=== PATIENT | male | born 1950 | race Caucasian/White ===

== ENCOUNTER 2016-08-24 09:00 | Inpatient (IN) | payer OTHER ==
[~2016-08-24] VITALS: Ht 180.3 cm; Wt 75.3 kg
[2016-08-24] VITALS (18 sets, daily range): BP systolic 85–112; BP diastolic 44–56; PULSE 54–70; RESP 10–25; Ht 180.3 cm; Wt 75.3 kg
[2016-08-24] MEDS ORDERED: CEFAZOLIN 2 GM/50 ML (PMX) 50 ML IVPB ONE (10:00)
[2016-08-24] MEDS ORDERED: SOD CHLORIDE 0.9% 1,000 ML IV SCH (10:00)
[2016-08-24] MEDS ORDERED: RANI150T9 PO (10:20)
[2016-08-24] MEDS ORDERED: HYDR-906 PO (10:20)
[2016-08-24] MEDS ORDERED: GABA-526 PO (10:20)
[2016-08-24] MEDS ORDERED: MAG355OR14 PO (10:20)
[2016-08-24] MEDS ORDERED: METO5TAB58 PO (10:20)
[2016-08-24] MEDS ORDERED: MIRT15TA5 PO (10:20)
[2016-08-24] MEDS ORDERED: BUPIVACAINE 0.25% (MPF) 30 ML INJ ONE (11:49)
[2016-08-24] MEDS ORDERED: PROPOFOL 20 ML ONE (11:59)
[2016-08-24] MEDS ORDERED: ROCURONIUM 50 MG INJ ONE ×2 (11:59→13:08)
[2016-08-24] MEDS ORDERED: ROPIVACAINE 0.5 % 30 ML VIAL ONE (12:00)
[2016-08-24] MEDS ORDERED: METOCLOPRAMIDE 10 MG INJ ONE (12:00)
[2016-08-24] MEDS ORDERED: MIDAZOLAM 1 MG/ML 2 ML INJ ONE (12:00)
[2016-08-24] MEDS ORDERED: HYDROmorphONE 2 MG/ML SYG ONE (12:02)
[2016-08-24] MEDS ORDERED: CEFAZOLIN 1 GM INJ ONE (12:09)
[2016-08-24] MEDS ORDERED: METOCLOPRAMIDE 10 MG INJ IV PRN (12:30)
[2016-08-24] MEDS ORDERED: DIPHENHYDRAMINE 50 MG INJ IV PRN (12:30)
[2016-08-24] MEDS ORDERED: HYDROmorphONE (0.2 MG/ML) 10ML SYG IV PRN ×2 (12:30)
[2016-08-24] MEDS ORDERED: ONDANSETRON 4 MG INJ IV PRN (12:30)
[2016-08-24] MEDS ORDERED: MEPERIDINE 25 MG INJ IV PRN (12:30)
[2016-08-24] MEDS ORDERED: OXYCODONE/ACETAMINOPHEN (5/325) TAB PO PRN ×2 (12:30)
[2016-08-24] MEDS ORDERED: GLYCOPYRROLATE 0.4 MG INJ ONE (12:32)
[2016-08-24] MEDS ORDERED: NEOSTIGMINE 3 MG/3 ML SYRINGE ONE (12:32)
[2016-08-24] MEDS ORDERED: KETOROLAC 30 MG INJ ONE (12:32)
--- NOTE | 2016-08-24 13:46 | OPR ---
Date/Time of Note Date/Time of Note DATE: 08/24/16 TIME: 13:45 Operative Report Procedure Date: Aug 24, 2016 Preoperative Diagnosis symptomatic gallstones Postoperative Diagnosis same Operation Performed lap converted to open gabi Surgeon: Allison MARIE Specimens gallbladder Allison MARIE Aug 24, 2016 13:46
--- NOTE | 2016-08-24 14:15 | OPR ---
DATE OF OPERATION: 08/24/2016 INDICATION: This is a 65-year-old male with symptomatic gallstones. He requests surgical excision. The risks, alternatives, benefits, and personnel were discussed with the patient. Patient expressed understanding and consented to the operation. PREOPERATIVE DIAGNOSIS: Symptomatic gallstones. POSTOPERATIVE DIAGNOSIS: Symptomatic gallstones. OPERATION PERFORMED: 1. Laparoscopic cholecystectomy converted to open cholecystectomy 2. placement intraabdominal #19 akin drain SURGEON: Rohini Tobar MD SPECIMENS: Gallbladder. COMPLICATIONS: None. ANESTHESIA: General. PROCEDURE: The patient was taken to the OR and prepped and draped in the usual sterile fashion. A surgical timeout was performed. IV antibiotics were given. An infraumbilical incision was made with a 15 blade. Dissection cautery was carried down to the fascia which was divided with curved Bourgeois scissors. An 0 Vicryl U-stitch was placed into the fascia. Balloon Ena trocar was introduced. Pneumoperitoneum was established. Midepigastric 12-mm optical trocar and right upper quadrant and right flank 5-mm optical trocars were placed under direct visualization. Upon initial inspection, the gallbladder appeared to be socked into the liver and was deeply intrahepatic. Dissection was first carried out from a dome-down approach. There was some minimal oozing. It was difficult to get around the dome. The cystic duct was identified. The critical view was established. The cystic duct was divided with multiple fires of the 35 [place] vascular load stapler. The gallbladder was placed into an EndoCatch bag. The cystic artery also was clipped and divided. There was persistent bleeding in one single area which was not amenable to clip construction and maintenance inspector. The decision was made to convert to an open procedure. A subcostal incision was made in the right side with a 10 blade. Dissection cautery was carried down through the muscle layers. Upon initial retraction there was an area of oozing and bleeding, which was controlled with a figure of eight 3-0 Vicryl suture. There was good hemostasis. A #19 Akin drain was placed for further drainage in this area. The drain was secured in place with 2-0 nylon. The gallbladder was retrieved and was opened and evaluated. The cystic duct was identified. No other structures were identified. The gallbladder bed was thoroughly cauterized and Surgicel was placed for additional hemostatic agent. There was no further evidence of bleeding and there was good hemostasis. The fascia was closed with an 0 looped PDS from medial to lateral and lateral to medial. This was tied down. The skin was closed using skin ching. Local anesthesia was injected. The infraumbilical incision was closed after tying down the 0 Vicryl stitch. The skin was closed using skin ching. Local anesthesia was injected. Dry dressings were applied. Dictated By: ROHINI DAVIS/MILLY Conf#: [id number] DID#: [id number] MTDD
[2016-08-24] MEDS: CEFAZOLIN 2 GM/50 ML (PMX) 50 ML IVPB SCH ×2 (14:20→22:21)
[2016-08-24] MEDS: HYDROmorphONE (0.2 MG/ML) 10ML SYG IV PRN ×4 (14:24→14:53)
[2016-08-24 15:04] LABS: ADD SCAN DIFF NO
[2016-08-24 15:07] LABS: BASOPHILS % 0.2 % (0.0-2.0); EOSINOPHILS # 0.1 10^3/ul (0.0-0.5); EOSINOPHILS % 0.2 % (0.0-7.0); HEMATOCRIT 38.2 % (42.0-52.0); HEMOGLOBIN 12.5 g/dl (14.0-18.0); LYMPHOCYTES # 1.7 10^3/ul (0.8-2.9); MEAN CORPUSCULAR HEMOGLOBIN 30.8 pg (29.0-33.0); MEAN CORPUSCULAR HGB CONC 32.7 g/dl (32.0-37.0); MEAN CORPUSCULAR VOLUME 94.1 fl (82.0-101.0); MEAN PLATELET VOLUME 9.4 fl (7.4-10.4); MONOCYTE # 0.6 10^3/ul (0.3-0.9); MONOCYTES % 2.7 % (0.0-11.0); NEUTROPHIL # 18.7 10^3/ul (1.6-7.5); NEUTROPHILS % 88.2 % (39.0-77.0); PLATELET COUNT 193 10^3/UL (140-415); RED BLOOD COUNT 4.06 10^6/ul (4.70-6.10); RED CELL DISTRIBUTION WIDTH 13.7 % (11.5-14.5); WHITE BLOOD COUNT 21.2 10^3/ul (4.8-10.8)
[2016-08-24 15:29] LABS: ALBUMIN 3.7 g/dl (3.3-4.9); ALBUMIN/GLOBULIN RATIO 1.32; BILIRUBIN,INDIRECT 0.4 mg/dl (0-1.1); BILIRUBIN,TOTAL 0.4 mg/dl (0.2-1.3); TOTAL PROTEIN 6.5 g/dl (6.1-8.1)
[2016-08-24 15:45] LABS: CALCIUM 8.1 mg/dl (8.4-10.2); CREATININE 0.78 mg/dl (0.61-1.24); POTASSIUM 4.3 mmol/L (3.5-5.1)
[2016-08-24] MEDS: morphine 2 MG INJ IV PRN ×3 (16:43→22:14)
[2016-08-24] MEDS: SOD CHLORIDE 0.9% 1,000 ML IV SCH ×2 (17:26→23:58)
--- NOTE | 2016-08-24 17:53 | HP ---
DATE OF ADMISSION: 08/24/2016 HISTORY OF PRESENT ILLNESS: The patient is a 65-year-old gentleman with chronic back pain status po st surgery. The patient also has a history of symptomatic gallstones and was seen by Dr. Tobar. The patient was taken to OR and underwent laparoscopic cholecystectomy. The patient does have significa nt postoperative pain and is being admitted for further evaluation and management. Prior to surgery , he used to take [place] for his back pain along with Neurontin. The patient did not have any recent episode of cholecystitis, no reported chest pain or shortness of breath. No reported leg edema. N o history of hypertension, diabetes, or congestive heart failure. No history of CVA in the past. REVIEW OF SYSTEMS: The rest of the review of systems was unremarkable. PAST SURGICAL HISTORY: The patient is status post low back surgery, details not available. The pat zoe has history of burst fracture of lumbar vertebra in 2014. SOCIAL HISTORY: No smoking, no alcohol. FAMILY HISTORY: Noncontributory. ALLERGIES: NONE. PHYSICAL EXAMINATION: GENERAL: Revealed the patient to be conscious, awake, alert, fairly oriented, breathing comfortably on room air. VITAL SIGNS: Blood pressure 96/50, pulse 64, respirations 18, O2 saturation 95% on room air. The p atient is afebrile with temperature of 98.1. HEENT: Atraumatic, normocephalic. Conjunctivae and lids normal. Oropharynx clear. NECK: Supple. No mass, no thyromegaly. CHEST: Fairly clear. CARDIOVASCULAR: S1, S2 normal. No murmur. ABDOMEN: The patient is status post laparoscopic cholecystectomy. EXTREMITIES: No leg edema. NEUROLOGIC: The patient is awake, alert, follows simple commands, moves all extremities with no lazara ss focal deficits. LABORATORY: Postoperatively, WBC 21.2, hemoglobin 12.5. Sodium 142, potassium 4.3, BUN 14, creatin ine 0.7, glucose 155. AST 107, ALT 106, alkaline phosphatase 65. IMPRESSION: 1. Symptomatic gallstones, status post open cholecystectomy. 2. Chronic lower back pain with a history of lower back injury with lumbar burst fracture status po st surgery, details not available. PLAN: The patient admitted on medical floor. The patient will be started on clear liquid diet, whi ch will be advanced as tolerated. The patient will be started on [place] and IV morphine for pain con trol. We will also add Tylenol. We will use SCD for DVT prophylaxis, and the patient already was t aking Zantac which will be continued. The patient will also be continued on Neurontin, Reglan, and Remeron as at home. We will do followup labs in the morning. Further recommendations will depend o n patient's hospital course and recommendations from surgery. We will continue to follow from a [facility] standpoint. Dictated By: GAGANDEEP BYRNE/MILLY Conf#: [id number] DID#: [id number]
[2016-08-24] MEDS: METOCLOPRAMIDE 5 MG TAB PO SCH (18:52)
[2016-08-24] MEDS: GABAPENTIN 300 MG CAP PO SCH (20:13)
[2016-08-24] MEDS: HYDROCODONE/APAP (5/325) TAB PO PRN (20:14)
[2016-08-24] MEDS: MIRTAZAPINE 15 MG TAB PO SCH (20:14)
[2016-08-24] MEDS: RANITIDINE 150 MG TAB PO SCH (20:15)
[2016-08-25] MEDS: morphine 2 MG INJ IV PRN ×3 (02:43→11:55)
[2016-08-25] MEDS: HYDROCODONE/APAP (5/325) TAB PO PRN (04:21)
[2016-08-25] MEDS: SOD CHLORIDE 0.9% 1,000 ML IV SCH ×3 (04:30→16:24)
[2016-08-25] MEDS: CEFAZOLIN 2 GM/50 ML (PMX) 50 ML IVPB SCH (05:30)
[2016-08-25 06:06] LABS: ADD SCAN DIFF NO
[2016-08-25 06:29] LABS: BASOPHILS % 0.1 % (0.0-2.0); HEMATOCRIT 35.9 % (42.0-52.0); HEMOGLOBIN 11.9 g/dl (14.0-18.0); LYMPHOCYTES # 0.9 10^3/ul (0.8-2.9); LYMPHOCYTES % 5.9 % (15.0-51.0); MEAN CORPUSCULAR HEMOGLOBIN 30.9 pg (29.0-33.0); MEAN CORPUSCULAR HGB CONC 33.1 g/dl (32.0-37.0); MEAN CORPUSCULAR VOLUME 93.2 fl (82.0-101.0); MEAN PLATELET VOLUME 9.9 fl (7.4-10.4); MONOCYTE # 0.7 10^3/ul (0.3-0.9); MONOCYTES % 4.6 % (0.0-11.0); PLATELET COUNT 187 10^3/UL (140-415); RED BLOOD COUNT 3.85 10^6/ul (4.70-6.10); RED CELL DISTRIBUTION WIDTH 13.7 % (11.5-14.5); WHITE BLOOD COUNT 14.6 10^3/ul (4.8-10.8)
[2016-08-25 07:24] LABS: ALBUMIN 3.5 g/dl (3.3-4.9); ALBUMIN/GLOBULIN RATIO 1.2; BILIRUBIN,INDIRECT 0.8 mg/dl (0-1.1); BILIRUBIN,TOTAL 0.8 mg/dl (0.2-1.3); CALCIUM 8.7 mg/dl (8.4-10.2); CREATININE 0.7 mg/dl (0.61-1.24); POTASSIUM 4.1 mmol/L (3.5-5.1); TOTAL PROTEIN 6.4 g/dl (6.1-8.1)
[2016-08-25 08:01] VITALS: BP 108/59; RESP 17
[2016-08-25] MEDS: RANITIDINE 150 MG TAB PO SCH ×2 (08:43→21:35)
[2016-08-25] MEDS: METOCLOPRAMIDE 5 MG TAB PO SCH ×3 (08:43→18:18)
[2016-08-25] MEDS: GABAPENTIN 300 MG CAP PO SCH ×4 (08:43→22:34)
--- NOTE | 2016-08-25 09:58 | PN ---
Date/Time of Note Date/Time of Note DATE: 08/25/16 TIME: 09:57 Assessment/Plan VTE Prophylaxis VTE Prophylaxis Intervention: SCD's, other Lines/Catheters IV Catheter Type (from Nrsg): Saline Lock Assessment/Plan Chief Complaint/Hosp Course s/p lap gabi converted to open due to intrahepatic gallbladder pain control Problems: Subjective 24 Hr Interval Summary Free Text/Dictation doing well no issues except pain control Exam/Review of Systems Vital Signs Vitals Vital Signs Date Time Temp Pulse Resp B/P Pulse Ox O2 Delivery O2 Flow Rate FiO2 08/25/16 08:01 98.9 76 17 108/59 88 08/24/16 15:40 Room Air Intake and Output 08/24/16 08/24/16 08/25/16 15:00 23:00 07:00 Intake Total 3300 ml 50 ml 1820 ml Output Total 110 ml 60 ml 1110 ml Balance 3190 ml -10 ml 710 ml Exam drain in place, c/d/i Results Result Diagram: 08/25/16 0533 08/25/16 0533 Results 24 hrs Laboratory Tests Test 08/24/16 14:58 08/25/16 05:33 08/25/16 06:56 White Blood Count 21.2 H 14.6 #H Red Blood Count 4.06 L 3.85 L Hemoglobin 12.5 L 11.9 L Hematocrit 38.2 L 35.9 L Mean Corpuscular Volume 94.1 93.2 Mean Corpuscular Hemoglobin 30.8 30.9 Mean Corpuscular Hemoglobin Concent 32.7 33.1 Red Cell Distribution Width 13.7 13.7 Platelet Count 193 187 Mean Platelet Volume 9.4 9.9 Neutrophils % 88.2 H 89.0 H Lymphocytes % 8.0 L 5.9 L Monocytes % 2.7 4.6 Eosinophils % 0.2 0.0 Basophils % 0.2 0.1 Nucleated Red Blood Cells % 0.0 0.0 Neutrophils # 18.7 H 13.0 H Lymphocytes # 1.7 0.9 Monocytes # 0.6 0.7 Eosinophils # 0.1 0.0 Basophils # 0.0 0.0 Nucleated Red Blood Cells # 0.0 0.0 Sodium Level 142 139 Potassium Level 4.3 4.1 Chloride Level 109 103 Carbon Dioxide Level 25 26 Anion Gap 12 14 Blood Urea Nitrogen 14 15 Creatinine 0.78 0.70 Glucose Level 155 127 Calcium Level 8.1 L 8.7 Total Bilirubin 0.4 0.8 Direct Bilirubin 0.00 0.00 Indirect Bilirubin 0.4 0.8 Aspartate Amino Transf (AST/SGOT) 107 H 85 H Alanine Aminotransferase (ALT/SGPT) 106 H 85 H Alkaline Phosphatase 65 55 Total Protein 6.5 6.4 Albumin 3.7 3.5 Globulin 2.80 2.90 Albumin/Globulin Ratio 1.32 1.20 Lab Scanned Report REFERENCE LAB Medications Medications Current Medications Cefazolin Sodium/ Dextrose (Ancef 2 Gm/50 ml (Pmx)) 50 ml @ 100 mls/hr Q8H IVPB Last administered on 08/25/16 05:30; Admin Dose 100 MLS/HR; Start at 14:00; Stop 08/25/16 at 13:59 Morphine Sulfate (morphine) 2 mg Q2H PRN IV PAIN LEVEL 6-10 Last administered on 08/25/16 07:38; Admin Dose 2 MG; Start 08/24/16 at 14:00 Acetaminophen/ Hydrocodone Bitart 1 tab 1 tab Q6H PRN PO PAIN LEVEL 6-10 Last administered on 08/25/16 04:21; Admin Dose 1 TAB; Start 08/24/16 at 14:00 Sodium Chloride (NS) 1,000 ml @ 100 mls/hr Q10H IV Last administered on 04:30; Admin Dose 100 MLS/HR; Start 08/24/16 at 13:58 Gabapentin (Neurontin) 600 mg TID PO Last administered on 08/25/16 08:43; Admin Dose 600 MG; Start 08/24/16 at 21:00 Mirtazapine (Remeron) 15 mg HS PO Last administered on 08/24/16 20:14; Admin Dose 15 MG; Start 08/24/16 at 21:00 Ranitidine HCl (Zantac) 150 mg BID PO Last administered on 08/25/16 08:43; Admin Dose 150 MG; Start 08/24/16 at 21:00 Allison MARIE Aug 25, 2016 09:58
--- NOTE | 2016-08-25 11:20 | PN ---
Date/Time of Note Date/Time of Note DATE: 08/25/16 TIME: 11:20 Assessment/Plan VTE Prophylaxis VTE Prophylaxis Intervention: other Lines/Catheters IV Catheter Type (from Nrs): Saline Lock Assessment/Plan Chief Complaint/Hosp Course 1. Symptomatic gallstones, status post open cholecystectomy. 2. Chronic lower back pain with a history of lower back injury with lumbar burst fracture status post surgery, details not available. Problems: Subjective 24 Hr Interval Summary Free Text/Dictation Patient complain of abdominal pain Exam/Review of Systems Vital Signs Vitals Vital Signs Date Time Temp Pulse Resp B/P Pulse Ox O2 Delivery O2 Flow Rate FiO2 08/25/16 08:01 98.9 76 17 108/59 88 08/24/16 15:40 Room Air Intake and Output 08/24/16 08/24/16 08/25/16 15:00 23:00 07:00 Intake Total 3300 ml 50 ml 1820 ml Output Total 110 ml 60 ml 1110 ml Balance 3190 ml -10 ml 710 ml Exam Constitutional: well developed Head: atraumatic, normocephalic Neck: supple Respiratory: clear to auscultation Cardiovascular: regular rate and rhythm Gastrointestinal: soft, tender Extremities: normal pulses Results Result Diagram: 08/25/16 0533 08/25/16 0533 Results 24 hrs Laboratory Tests Test 08/24/16 14:58 08/25/16 05:33 08/25/16 06:56 White Blood Count 21.2 H 14.6 #H Red Blood Count 4.06 L 3.85 L Hemoglobin 12.5 L 11.9 L Hematocrit 38.2 L 35.9 L Mean Corpuscular Volume 94.1 93.2 Mean Corpuscular Hemoglobin 30.8 30.9 Mean Corpuscular Hemoglobin Concent 32.7 33.1 Red Cell Distribution Width 13.7 13.7 Platelet Count 193 187 Mean Platelet Volume 9.4 9.9 Neutrophils % 88.2 H 89.0 H Lymphocytes % 8.0 L 5.9 L Monocytes % 2.7 4.6 Eosinophils % 0.2 0.0 Basophils % 0.2 0.1 Nucleated Red Blood Cells % 0.0 0.0 Neutrophils # 18.7 H 13.0 H Lymphocytes # 1.7 0.9 Monocytes # 0.6 0.7 Eosinophils # 0.1 0.0 Basophils # 0.0 0.0 Nucleated Red Blood Cells # 0.0 0.0 Sodium Level 142 139 Potassium Level 4.3 4.1 Chloride Level 109 103 Carbon Dioxide Level 25 26 Anion Gap 12 14 Blood Urea Nitrogen 14 15 Creatinine 0.78 0.70 Glucose Level 155 127 Calcium Level 8.1 L 8.7 Total Bilirubin 0.4 0.8 Direct Bilirubin 0.00 0.00 Indirect Bilirubin 0.4 0.8 Aspartate Amino Transf (AST/SGOT) 107 H 85 H Alanine Aminotransferase (ALT/SGPT) 106 H 85 H Alkaline Phosphatase 65 55 Total Protein 6.5 6.4 Albumin 3.7 3.5 Globulin 2.80 2.90 Albumin/Globulin Ratio 1.32 1.20 Lab Scanned Report REFERENCE LAB Medications Medications Current Medications Cefazolin Sodium/ Dextrose (Ancef 2 Gm/50 ml (Pmx)) 50 ml @ 100 mls/hr Q8H IVPB Last administered on 08/25/16 05:30; Admin Dose 100 MLS/HR; Start at 14:00; Stop 08/25/16 at 13:59 Morphine Sulfate (morphine) 2 mg Q2H PRN IV PAIN LEVEL 6-10 Last administered on 08/25/16 07:38; Admin Dose 2 MG; Start 08/24/16 at 14:00 Acetaminophen/ Hydrocodone Bitart 1 tab 1 tab Q6H PRN PO PAIN LEVEL 6-10 Last administered on 08/25/16 04:21; Admin Dose 1 TAB; Start 08/24/16 at 14:00 Sodium Chloride (NS) 1,000 ml @ 100 mls/hr Q10H IV Last administered on 04:30; Admin Dose 100 MLS/HR; Start 08/24/16 at 13:58 Gabapentin (Neurontin) 600 mg TID PO Last administered on 08/25/16 08:43; Admin Dose 600 MG; Start 08/24/16 at 21:00 Mirtazapine (Remeron) 15 mg HS PO Last administered on 08/24/16 20:14; Admin Dose 15 MG; Start 08/24/16 at 21:00 Ranitidine HCl (Zantac) 150 mg BID PO Last administered on 08/25/16 08:43; Admin Dose 150 MG; Start 08/24/16 at 21:00 ZEB JUSTIN 10, 2017 11:20
[2016-08-25 19:42] VITALS: BP 102/54; RESP 20
[2016-08-25] MEDS: MIRTAZAPINE 15 MG TAB PO SCH (21:35)
[2016-08-26] MEDS: SOD CHLORIDE 0.9% 1,000 ML IV SCH ×3 (03:01→14:08)
[2016-08-26 07:37] VITALS: BP 114/58; RESP 18
[2016-08-26] MEDS: GABAPENTIN 300 MG CAP PO SCH ×3 (08:26→21:08)
[2016-08-26] MEDS: METOCLOPRAMIDE 5 MG TAB PO SCH ×3 (08:26→17:27)
[2016-08-26] MEDS: RANITIDINE 150 MG TAB PO SCH ×2 (08:26→21:08)
[2016-08-26] MEDS: morphine 2 MG INJ IV PRN (08:31)
--- NOTE | 2016-08-26 10:57 | PN ---
Date/Time of Note Date/Time of Note DATE: 08/26/16 TIME: 10:57 Assessment/Plan VTE Prophylaxis VTE Prophylaxis Intervention: other Lines/Catheters IV Catheter Type (from Nrs): Saline Lock Assessment/Plan Chief Complaint/Hosp Course 1. Symptomatic gallstones, status post open cholecystectomy. 2. Chronic lower back pain with a history of lower back injury with lumbar burst fracture status post surgery, details not available. Problems: Subjective 24 Hr Interval Summary Free Text/Dictation Patient still have abdominal pain Exam/Review of Systems Vital Signs Vitals Vital Signs Date Time Temp Pulse Resp B/P Pulse Ox O2 Delivery O2 Flow Rate FiO2 08/26/16 08:00 1.5 08/26/16 07:37 99.1 84 18 114/58 95 08/24/16 15:40 Room Air Intake and Output 08/25/16 08/25/16 08/26/16 15:00 23:00 07:00 Intake Total 1150 ml 1195 ml Output Total 40 ml 1590 ml Balance 1110 ml -395 ml Exam Constitutional: well developed Head: atraumatic, normocephalic Neck: supple Respiratory: clear to auscultation Cardiovascular: regular rate and rhythm Gastrointestinal: soft, tender Extremities: normal pulses Results Result Diagram: 08/25/1653208/25/16532 Medications Medications Current Medications Morphine Sulfate (morphine) 2 mg Q2H PRN IV PAIN LEVEL 6-10 Last administered on 08/26/16 08:31; Admin Dose 2 MG; Start 08/24/16 at 14:00 Acetaminophen/ Hydrocodone Bitart 1 tab 1 tab Q6H PRN PO PAIN LEVEL 6-10 Last administered on 08/25/16 04:21; Admin Dose 1 TAB; Start 08/24/16 at 14:00 Sodium Chloride (NS) 1,000 ml @ 100 mls/hr Q10H IV Last administered on 03:01; Admin Dose 100 MLS/HR; Start 08/24/16 at 13:58 Gabapentin (Neurontin) 600 mg TID PO Last administered on 08/26/16 08:26; Admin Dose 600 MG; Start 08/24/16 at 21:00 Mirtazapine (Remeron) 15 mg HS PO Last administered on 08/25/16 21:35; Admin Dose 15 MG; Start 08/24/16 at 21:00 Ranitidine HCl (Zantac) 150 mg BID PO Last administered on 08/26/16 08:26; Admin Dose 150 MG; Start 08/24/16 at 21:00 ZEB JUSTIN Aug 26, 2016 10:57
--- NOTE | 2016-08-26 15:11 | PN ---
DATE: 08/26/2016 Postop day #2 status post laparoscopic cholecystectomy converted to open for control of bleeding. I am seeing this patient for Dr. Tobar. SUBJECTIVE: No special complaint, has not been out of bed yet, has not passed any gas or bowel move ment, has tolerated diet so far. OBJECTIVE GENERAL: Awake, alert, oriented x3, in no acute distress. VITAL SIGNS: Temperature 99.1, heart rate 84 and regular, respirations 18, blood pressure 114/58, s aturation 95% on 1.5 liters of oxygen flow. ABDOMEN: Slightly distended. Bowel sounds 2+/4+. Mild tenderness here and there. EXTREMITIES: Legs no calf tenderness. LABORATORY: No lab data available today. ASSESSMENT: Status post laparoscopic cholecystectomy, conversion to open for control of bleeding. The patient is stable so far. The Akin drain, which is in the gallbladder fossa has drained 80 mL of fluid yesterday 24-hour and since morning today at 5:00 a.m. until right now which is 2:00 p.m. That means over the course of 9 hours drained about 15 mL. The fluid does not appear to be bloody, serosanguineous, slightly darker maybe slightly brownish in color. Question of minimal bile in it. PLAN: 1. Get the patient out of bed to walk around. 2. I have encouraged to use incentive spirometry. 3. Continue other care, order lab data for tomorrow. Dictated By: ARNAUD MANCIA MD PS/NTS Conf#: [id number] DID#: [id number]
[2016-08-26 19:18] VITALS: BP 113/62; RESP 22
[2016-08-26] MEDS: MIRTAZAPINE 15 MG TAB PO SCH (21:08)
[2016-08-26] MEDS: HYDROCODONE/APAP (5/325) TAB PO PRN (21:08)
[2016-08-27] MEDS: SOD CHLORIDE 0.9% 1,000 ML IV SCH ×4 (00:47→22:16)
[2016-08-27 05:43] LABS: ADD SCAN DIFF NO
[2016-08-27 06:04] LABS: BASOPHILS % 0.2 % (0.0-2.0); EOSINOPHILS # 0.1 10^3/ul (0.0-0.5); EOSINOPHILS % 1.1 % (0.0-7.0); HEMATOCRIT 35.5 % (42.0-52.0); HEMOGLOBIN 11.8 g/dl (14.0-18.0); LYMPHOCYTES # 1.2 10^3/ul (0.8-2.9); LYMPHOCYTES % 11.4 % (15.0-51.0); MEAN CORPUSCULAR HEMOGLOBIN 30.8 pg (29.0-33.0); MEAN CORPUSCULAR HGB CONC 33.2 g/dl (32.0-37.0); MEAN CORPUSCULAR VOLUME 92.7 fl (82.0-101.0); MEAN PLATELET VOLUME 9.9 fl (7.4-10.4); MONOCYTE # 0.6 10^3/ul (0.3-0.9); NEUTROPHIL # 8.2 10^3/ul (1.6-7.5); NEUTROPHILS % 80.9 % (39.0-77.0); PLATELET COUNT 166 10^3/UL (140-415); RED BLOOD COUNT 3.83 10^6/ul (4.70-6.10); RED CELL DISTRIBUTION WIDTH 13.6 % (11.5-14.5); WHITE BLOOD COUNT 10.1 10^3/ul (4.8-10.8)
[2016-08-27 06:16] LABS: ALBUMIN 3.4 g/dl (3.3-4.9); ALBUMIN/GLOBULIN RATIO 1.13; BILIRUBIN,INDIRECT 0.8 mg/dl (0-1.1); BILIRUBIN,TOTAL 0.8 mg/dl (0.2-1.3); CALCIUM 8.9 mg/dl (8.4-10.2); CREATININE 0.66 mg/dl (0.61-1.24); POTASSIUM 3.5 mmol/L (3.5-5.1); TOTAL PROTEIN 6.4 g/dl (6.1-8.1)
[2016-08-27 07:29] VITALS: BP 114/63; RESP 18
[2016-08-27] MEDS: METOCLOPRAMIDE 5 MG TAB PO SCH ×3 (08:15→17:30)
[2016-08-27] MEDS: RANITIDINE 150 MG TAB PO SCH ×2 (08:15→20:49)
[2016-08-27] MEDS: GABAPENTIN 300 MG CAP PO SCH ×3 (08:15→20:49)
[2016-08-27] MEDS: morphine 2 MG INJ IV PRN ×2 (11:19→17:30)
--- NOTE | 2016-08-27 12:52 | PN ---
Date/Time of Note Date/Time of Note DATE: 08/27/16 TIME: 12:50 Assessment/Plan VTE Prophylaxis VTE Prophylaxis Intervention: SCD's Lines/Catheters IV Catheter Type (from Nrs): Saline Lock Assessment/Plan Chief Complaint/Hosp Course s/p lap gabi converted to open due to intrahepatic gallbladder Problems: Assessment/Plan drain with dark drainage will check hida scan Subjective 24 Hr Interval Summary Free Text/Dictation doing well, no issues, drain with the dark drainage Exam/Review of Systems Vital Signs Vitals Vital Signs Date Time Temp Pulse Resp B/P Pulse Ox O2 Delivery O2 Flow Rate FiO2 08/27/16 08:00 Nasal Cannula 1.5 08/27/16 07:29 98.3 80 18 114/63 97 Intake and Output 08/26/16 08/26/16 08/27/16 15:00 23:00 07:00 Intake Total 805 ml 1980 ml 1500 ml Output Total 2630 ml 1035 ml Balance 805 ml -650 ml 465 ml Exam c/d/i drain with dark drainage Results Result Diagram: 08/27/16 0510 08/27/16 0510 Results 24 hrs Laboratory Tests Test 08/27/16 05:10 White Blood Count 10.1 # Red Blood Count 3.83 L Hemoglobin 11.8 L Hematocrit 35.5 L Mean Corpuscular Volume 92.7 Mean Corpuscular Hemoglobin 30.8 Mean Corpuscular Hemoglobin Concent 33.2 Red Cell Distribution Width 13.6 Platelet Count 166 Mean Platelet Volume 9.9 Neutrophils % 80.9 H Lymphocytes % 11.4 L Monocytes % 6.0 Eosinophils % 1.1 Basophils % 0.2 Nucleated Red Blood Cells % 0.0 Neutrophils # 8.2 H Lymphocytes # 1.2 Monocytes # 0.6 Eosinophils # 0.1 Basophils # 0.0 Nucleated Red Blood Cells # 0.0 Sodium Level 142 Potassium Level 3.5 Chloride Level 107 Carbon Dioxide Level 28 Anion Gap 11 Blood Urea Nitrogen 8 Creatinine 0.66 Glucose Level 103 Calcium Level 8.9 Total Bilirubin 0.8 Direct Bilirubin 0.00 Indirect Bilirubin 0.8 Aspartate Amino Transf (AST/SGOT) 39 # Alanine Aminotransferase (ALT/SGPT) 50 Alkaline Phosphatase 55 Total Protein 6.4 Albumin 3.4 Globulin 3.00 Albumin/Globulin Ratio 1.13 Medications Medications Current Medications Morphine Sulfate (morphine) 2 mg Q2H PRN IV PAIN LEVEL 6-10 Last administered on 08/27/16 11:19; Admin Dose 2 MG; Start 08/24/16 at 14:00 Acetaminophen/ Hydrocodone Bitart 1 tab 1 tab Q6H PRN PO PAIN LEVEL 6-10 Last administered on 08/26/16 21:08; Admin Dose 1 TAB; Start 08/24/16 at 14:00 Sodium Chloride (NS) 1,000 ml @ 100 mls/hr Q10H IV Last administered on 11:12; Admin Dose 100 MLS/HR; Start 08/24/16 at 13:58 Gabapentin (Neurontin) 600 mg TID PO Last administered on 08/27/16 12:21; Admin Dose 600 MG; Start 08/24/16 at 21:00 Mirtazapine (Remeron) 15 mg HS PO Last administered on 08/26/16 21:08; Admin Dose 15 MG; Start 08/24/16 at 21:00 Ranitidine HCl (Zantac) 150 mg BID PO Last administered on 08/27/16 08:15; Admin Dose 150 MG; Start 08/24/16 at 21:00 Allison MARIE Aug 27, 2016 12:52
--- NOTE | 2016-08-27 13:11 | PN ---
Date/Time of Note Date/Time of Note DATE: 08/27/16 TIME: 13:07 Assessment/Plan VTE Prophylaxis VTE Prophylaxis Intervention: SCD's Lines/Catheters IV [facility] Saline Lock Assessment/Plan Chief Complaint/Hosp Course Patient's complains of pain and mild dizziness when sitting up in bed, tolerates diet well denies any nausea vomiting. Negative flatus. Problems: Assessment/Plan - Symptomatic gallstones, status post status post laparoscopic converted to open cholecystectomy. Continue to follow-up surgical recommendation. Advance diet per surgery. Continue [place] and morphine as needed for pain. - Chronic lower back pain with history of lumbar burst fracture due to trauma, status post surgery. Further recommendations based on clinical course. Plan of care discussed with Dr. Anguiano. Exam/Review of Systems Vital Signs Vitals Vital Signs Date Time Temp Pulse Resp B/P Pulse Ox O2 Delivery O2 Flow Rate FiO2 08/27/16 08:00 Nasal Cannula 1.5 08/27/16 07:29 98.3 80 18 114/63 97 Intake and Output 08/26/16 08/26/16 08/27/16 15:00 23:00 07:00 Intake Total 805 ml 1980 ml 1500 ml Output Total 2630 ml 1035 ml Balance 805 ml -650 ml 465 ml Exam Constitutional: alert, oriented Head: normocephalic Neck: supple Respiratory: normal air movement Cardiovascular: nl pulses Gastrointestinal: bowel sounds (Present), other (Status post surgery with right lower quadrant drain), soft Musculoskeletal: nl extremities to inspection Extremities: normal pulses Neurological: nl mental status Results Result Diagram: 08/27/16 0510 08/27/16 0510 Results 24 hrs Laboratory Tests Test 08/27/16 05:10 White Blood Count 10.1 # Red Blood Count 3.83 L Hemoglobin 11.8 L Hematocrit 35.5 L Mean Corpuscular Volume 92.7 Mean Corpuscular Hemoglobin 30.8 Mean Corpuscular Hemoglobin Concent 33.2 Red Cell Distribution Width 13.6 Platelet Count 166 Mean Platelet Volume 9.9 Neutrophils % 80.9 H Lymphocytes % 11.4 L Monocytes % 6.0 Eosinophils % 1.1 Basophils % 0.2 Nucleated Red Blood Cells % 0.0 Neutrophils # 8.2 H Lymphocytes # 1.2 Monocytes # 0.6 Eosinophils # 0.1 Basophils # 0.0 Nucleated Red Blood Cells # 0.0 Sodium Level 142 Potassium Level 3.5 Chloride Level 107 Carbon Dioxide Level 28 Anion Gap 11 Blood Urea Nitrogen 8 Creatinine 0.66 Glucose Level 103 Calcium Level 8.9 Total Bilirubin 0.8 Direct Bilirubin 0.00 Indirect Bilirubin 0.8 Aspartate Amino Transf (AST/SGOT) 39 # Alanine Aminotransferase (ALT/SGPT) 50 Alkaline Phosphatase 55 Total Protein 6.4 Albumin 3.4 Globulin 3.00 Albumin/Globulin Ratio 1.13 Medications Medications Current Medications Morphine Sulfate (morphine) 2 mg Q2H PRN IV PAIN LEVEL 6-10 Last administered on 08/27/16 11:19; Admin Dose 2 MG; Start 08/24/16 at 14:00 Acetaminophen/ Hydrocodone Bitart 1 tab 1 tab Q6H PRN PO PAIN LEVEL 6-10 Last administered on 08/26/16 21:08; Admin Dose 1 TAB; Start 08/24/16 at 14:00 Sodium Chloride (NS) 1,000 ml @ 100 mls/hr Q10H IV Last administered on 11:12; Admin Dose 100 MLS/HR; Start 08/24/16 at 13:58 Gabapentin (Neurontin) 600 mg TID PO Last administered on 08/27/16 12:21; Admin Dose 600 MG; Start 08/24/16 at 21:00 Mirtazapine (Remeron) 15 mg HS PO Last administered on 08/26/16 21:08; Admin Dose 15 MG; Start 08/24/16 at 21:00 Ranitidine HCl (Zantac) 150 mg BID PO Last administered on 08/27/16 08:15; Admin Dose 150 MG; Start 08/24/16 at 21:00 FELIBERTO SANTOS Aug 27, 2016 13:11
--- NOTE | 2016-08-27 17:10 | RADRPT ---
PROCEDURE: Nuclear medicine hepatobiliary scan CLINICAL INDICATION: Right upper quadrant pain. Status post cholecystectomy. Evaluate for biliar y leak. TECHNIQUE: 7.5 mCi of technetium-99m Choletec was administered intravenously. Planar imaging of t he hepatobiliary system was performed. Delayed images were obtained. Images were reviewed on the h igh resolution PACS workstation. COMPARISON: None available FINDINGS: There is normal and homogeneous uptake throughout the hepatobiliary system. Normal homogeneous activ ity seen throughout the liver and there is normal accumulation of activity within the central intrah epatic bile ducts. There is normal tracer accumulation passing through the common bile duct into th e small bowel. Activity is seen within the small bowel within 20 minutes. The common bile duct is n ormal. The gallbladder is absent. However, there is a small slow study abnormal accumulation of radiotrace r within the gallbladder fossa. Findings are consistent with a small focal contained bile leak with in the gallbladder fossa region. IMPRESSION: 1. This study is positive for a small bile leak. 2. Patent common bile duct with normal visualization of the small bowel. RPTAT: HMJB .Joon Pak MD, MD Date Time Electronically viewed and signed by .Joon Pak MD, on 08/27/2016 17:09 .B/
[2016-08-27 20:21] VITALS: BP 107/58; RESP 18
[2016-08-27] MEDS: MIRTAZAPINE 15 MG TAB PO SCH (20:49)
[2016-08-28] VITALS (13 sets, daily range): BP systolic 103–125; BP diastolic 55–72; PULSE 94–110; RESP 14–23
[2016-08-28] MEDS: morphine 2 MG INJ IV PRN ×2 (03:57→16:32)
[2016-08-28 05:49] LABS: ADD SCAN DIFF NO
[2016-08-28 05:52] LABS: BASOPHILS % 0.2 % (0.0-2.0); EOSINOPHILS # 0.1 10^3/ul (0.0-0.5); EOSINOPHILS % 1.4 % (0.0-7.0); HEMATOCRIT 34.2 % (42.0-52.0); HEMOGLOBIN 11.6 g/dl (14.0-18.0); LYMPHOCYTES # 1.2 10^3/ul (0.8-2.9); LYMPHOCYTES % 13.9 % (15.0-51.0); MEAN CORPUSCULAR HEMOGLOBIN 31.2 pg (29.0-33.0); MEAN CORPUSCULAR HGB CONC 33.9 g/dl (32.0-37.0); MEAN CORPUSCULAR VOLUME 91.9 fl (82.0-101.0); MEAN PLATELET VOLUME 9.6 fl (7.4-10.4); MONOCYTE # 0.5 10^3/ul (0.3-0.9); MONOCYTES % 5.5 % (0.0-11.0); NEUTROPHIL # 6.8 10^3/ul (1.6-7.5); NEUTROPHILS % 78.7 % (39.0-77.0); PLATELET COUNT 195 10^3/UL (140-415); RED BLOOD COUNT 3.72 10^6/ul (4.70-6.10); RED CELL DISTRIBUTION WIDTH 13.2 % (11.5-14.5); WHITE BLOOD COUNT 8.6 10^3/ul (4.8-10.8)
[2016-08-28 06:49] LABS: CREATININE 0.62 mg/dl (0.61-1.24); POTASSIUM 3.8 mmol/L (3.5-5.1)
[2016-08-28] MEDS ORDERED: LIDOCAINE 2% (SDV) 5 ML INJ ONE (07:00)
[2016-08-28] MEDS: METOCLOPRAMIDE 5 MG TAB PO SCH ×3 (08:00→17:45)
[2016-08-28] MEDS: RANITIDINE 150 MG TAB PO SCH ×2 (09:00→20:31)
[2016-08-28] MEDS: GABAPENTIN 300 MG CAP PO SCH ×3 (09:00→20:31)
[2016-08-28] MEDS: SOD CHLORIDE 0.9% 1,000 ML IV SCH ×2 (09:59→17:58)
[2016-08-28 11:56] LABS: INR 1.08; PT RATIO 1.1
[2016-08-28 11:57] LABS: PARTIAL THROMBOPLASTIN TIME 30.7 Sec (25.0-35.0)
--- NOTE | 2016-08-28 13:10 | PN ---
Date/Time of Note Date/Time of Note DATE: 08/28/16 TIME: 13:09 Assessment/Plan VTE Prophylaxis VTE Prophylaxis Intervention: SCD's Lines/Catheters IV Catheter Type (from Nrsg): [place] Assessment/Plan Chief Complaint/Hosp Course s/p lap gabi converted to open due to intrahepatic gallbladder Problems: Assessment/Plan hida shows small pooling at gallbladder fossa, cbd patent continue drainage GI consult Subjective 24 Hr Interval Summary Free Text/Dictation still some pain issues at incision, HIDA shows small pooling at gallbladder fossa, cbd normal Exam/Review of Systems Vital Signs Vitals Vital Signs Date Time Temp Pulse Resp B/P Pulse Ox O2 Delivery O2 Flow Rate FiO2 08/28/16 08:00 Nasal Cannula 1.5 08/28/16 07:55 98.4 75 20 107/62 95 Intake and Output 08/27/16 08/27/16 08/28/16 15:00 23:00 07:00 Intake Total 600 ml 1920 ml 1200 ml Output Total 1180 ml 1235 ml Balance 600 ml 740 ml -35 ml Exam c/d/i Results Result Diagram: 08/28/16 0510 08/28/16 0510 Results 24 hrs Laboratory Tests Test 08/28/16 05:10 08/28/16 09:58 White Blood Count 8.6 Red Blood Count 3.72 L Hemoglobin 11.6 L Hematocrit 34.2 L Mean Corpuscular Volume 91.9 Mean Corpuscular Hemoglobin 31.2 Mean Corpuscular Hemoglobin Concent 33.9 Red Cell Distribution Width 13.2 Platelet Count 195 Mean Platelet Volume 9.6 Neutrophils % 78.7 H Lymphocytes % 13.9 L Monocytes % 5.5 Eosinophils % 1.4 Basophils % 0.2 Nucleated Red Blood Cells % 0.0 Neutrophils # 6.8 Lymphocytes # 1.2 Monocytes # 0.5 Eosinophils # 0.1 Basophils # 0.0 Nucleated Red Blood Cells # 0.0 Sodium Level 142 Potassium Level 3.8 Chloride Level 108 Carbon Dioxide Level 26 Anion Gap 12 Blood Urea Nitrogen 8 Creatinine 0.62 Glucose Level 112 Calcium Level 9.0 Prothrombin Time 14.0 Prothrombin Time Ratio 1.1 INR International Normalized Ratio 1.08 Activated Partial Thromboplast Time 30.7 Medications Medications Current Medications Morphine Sulfate (morphine) 2 mg Q2H PRN IV PAIN LEVEL 6-10 Last administered on 08/28/16t 03:57; Admin Dose 2 MG; Start 08/24/16 at 14:00 Acetaminophen/ Hydrocodone Bitart 1 tab 1 tab Q6H PRN PO PAIN LEVEL 6-10 Last administered on 08/26/16 21:08; Admin Dose 1 TAB; Start 08/24/16 at 14:00 Sodium Chloride (NS) 1,000 ml @ 100 mls/hr Q10H IV Last administered on 09:59; Admin Dose 100 MLS/HR; Start 08/24/16 at 13:58 Gabapentin (Neurontin) 600 mg TID PO Last administered on 08/27/16 20:49; Admin Dose 600 MG; Start 08/24/16 at 21:00 Mirtazapine (Remeron) 15 mg HS PO Last administered on 08/27/16 20:49; Admin Dose 15 MG; Start 08/24/16 at 21:00 Ranitidine HCl (Zantac) 150 mg BID PO Last administered on 08/27/16 20:49; Admin Dose 150 MG; Start 08/24/16 at 21:00 Allison MARIE Aug 28, 2016 13:10
--- NOTE | 2016-08-28 14:11 | CONS ---
DATE OF ADMISSION: 08/26/2016 DATE OF CONSULTATION: TYPE OF CONSULTATION: Gastroenterology. Dear Dr. Rowan: Thank you for asking me to see Mr. Rojas in GI consultation. HISTORY OF PRESENT ILLNESS: As you know, the patient is a 65-year-old male who underwent a laparoscopic and open cholecystectomy on the th of this month and following that he continues to h ave abdominal pain and liver functions are abnormal, although liver functions improved significantly . HIDA scan was performed which showed evidence of a small biliary leak in the area of the cystic d uct. It is considered as a leak in the gallbladder fossa. The patient has no nausea, no vomiting, no GI bleeding at this time. No fever. REVIEW OF SYSTEM: Totally unremarkable. PAST SURGICAL HISTORY: Includes back surgery. SOCIAL HISTORY: Patient used to drive a vehicle, he was ____. PHYSICAL EXAMINATION: GENERAL: The patient is a 65-year-old gentleman who at this time is alert, well built. VITAL SIGNS: Afebrile, temperature 98.4, blood pressure 107/62, pulse is 75. CARDIOVASCULAR: Normal heart sounds. RESPIRATORY: Normal breath sounds. ABDOMEN: Shows soft abdomen. There is evidence of surgical scar noted from the cholecystectomy. LABORATORY WORKUP: The WBC is 8600, hemoglobin is 11.6. The chemistry from August 24 shown to be AST 107, AST 106. Yesterday, AST is 39, ALT is 50, alkaline phosphatase 55, total bilirubin 0.8. CLINICAL IMPRESSION: The patient is status post cholecystectomy. He seems to have a biliary leak f rom the cystic duct stump as note on the HIDA scan. PLAN: At this time, proceed with ERCP and stent placement. I discussed this with the patient and deanna arnold agreed. He understood and agreed for the procedure. Once again, Dr. Rowan, thank you for this consultation. Dictated By: REBEKAH STONE/MILLY Conf#: [id number] DID#: [id number] CC: GAGANDEEP ROWAN MD;*EndCC*
--- NOTE | 2016-08-28 16:47 | PN ---
Date/Time of Note Date/Time of Note DATE: 08/28/16 TIME: 16:44 Assessment/Plan VTE Prophylaxis VTE Prophylaxis Intervention: SCD's Lines/Catheters IV Catheter Type (from Nrs): Peripheral IV Assessment/Plan Chief Complaint/Hosp Course Patient is currently n.p.o. for ERCP, pain is well controlled. Assessment/Plan - Symptomatic gallstones, status post status post laparoscopic converted to open cholecystectomy. Continue to follow-up surgical recommendation. Advance diet per surgery. Continue [place] and morphine as needed for pain. - Biliary leak from the cystic duct stump as note on the HIDA scan, Dr. An is following in gastroenterology consultation, plan for ERCP possible stent placement. - Chronic lower back pain with history of lumbar burst fracture due to trauma, status post surgery. Further recommendations based on clinical course. Plan of care discussed with Dr. Anguiano. Problems: Exam/Review of Systems Vital Signs Vitals Vital Signs Date Time Temp Pulse Resp B/P Pulse Ox O2 Delivery O2 Flow Rate FiO2 08/28/16 08:00 Nasal Cannula 1.5 08/28/16 07:55 98.4 75 20 107/62 95 Intake and Output 08/27/16 08/27/16 08/28/16 15:00 23:00 07:00 Intake Total 600 ml 1920 ml 1200 ml Output Total 1180 ml 1235 ml Balance 600 ml 740 ml -35 ml Exam Constitutional: alert, oriented Head: normocephalic Neck: supple Respiratory: normal air movement Cardiovascular: nl pulses Gastrointestinal: bowel sounds (Present), other (Status post surgery with right lower quadrant drain), soft Musculoskeletal: nl extremities to inspection Extremities: normal pulses Neurological: nl mental status Results Result Diagram: 08/28/16 0510 08/28/16 0510 Results 24 hrs Laboratory Tests Test 08/28/16 05:10 08/28/16 09:58 White Blood Count 8.6 Red Blood Count 3.72 L Hemoglobin 11.6 L Hematocrit 34.2 L Mean Corpuscular Volume 91.9 Mean Corpuscular Hemoglobin 31.2 Mean Corpuscular Hemoglobin Concent 33.9 Red Cell Distribution Width 13.2 Platelet Count 195 Mean Platelet Volume 9.6 Neutrophils % 78.7 H Lymphocytes % 13.9 L Monocytes % 5.5 Eosinophils % 1.4 Basophils % 0.2 Nucleated Red Blood Cells % 0.0 Neutrophils # 6.8 Lymphocytes # 1.2 Monocytes # 0.5 Eosinophils # 0.1 Basophils # 0.0 Nucleated Red Blood Cells # 0.0 Sodium Level 142 Potassium Level 3.8 Chloride Level 108 Carbon Dioxide Level 26 Anion Gap 12 Blood Urea Nitrogen 8 Creatinine 0.62 Glucose Level 112 Calcium Level 9.0 Prothrombin Time 14.0 Prothrombin Time Ratio 1.1 INR International Normalized Ratio 1.08 Activated Partial Thromboplast Time 30.7 Medications Medications Current Medications Morphine Sulfate (morphine) 2 mg Q2H PRN IV PAIN LEVEL 6-10 Last administered on 08/28/16 16:32; Admin Dose 2 MG; Start 08/24/16 at 14:00 Acetaminophen/ Hydrocodone Bitart 1 tab 1 tab Q6H PRN PO PAIN LEVEL 6-10 Last administered on 08/26/16 21:08; Admin Dose 1 TAB; Start 08/24/16 at 14:00 Sodium Chloride (NS) 1,000 ml @ 100 mls/hr Q10H IV Last administered on 09:59; Admin Dose 100 MLS/HR; Start 08/24/16 at 13:58 Gabapentin (Neurontin) 600 mg TID PO Last administered on 08/27/16 20:49; Admin Dose 600 MG; Start 08/24/16 at 21:00 Mirtazapine (Remeron) 15 mg HS PO Last administered on 08/27/16 20:49; Admin Dose 15 MG; Start 08/24/16 at 21:00 Ranitidine HCl (Zantac) 150 mg BID PO Last administered on 08/27/16 20:49; Admin Dose 150 MG; Start 08/24/16 at 21:00 FELIBERTO SANTOS Aug 28, 2016 16:47
[2016-08-28] MEDS ORDERED: IOHEXOL 300MG/ML 30 ML BTL ONE (17:14)
[2016-08-28] MEDS ORDERED: INDOMETHACIN 50 MG SUPP PR ONE ×2 (17:27→17:30)
[2016-08-28] MEDS ORDERED: HYDROmorphONE (0.2 MG/ML) 10ML SYG IV PRN ×2 (17:30)
[2016-08-28] MEDS ORDERED: DIPHENHYDRAMINE 50 MG INJ IV PRN (17:30)
[2016-08-28] MEDS ORDERED: MEPERIDINE 25 MG INJ IV PRN (17:30)
[2016-08-28] MEDS ORDERED: SUCCINYLCHOLINE CHLORIDE 100 MG/5 ML SYG IV ONE (17:33)
[2016-08-28] MEDS ORDERED: PROPOFOL 20 ML ONE (17:33)
[2016-08-28] MEDS ORDERED: FENTAnyl 50 MCG/ML VIAL ONE (17:34)
[2016-08-28] MEDS ORDERED: MIDAZOLAM 1 MG/ML 2 ML INJ ONE (17:34)
[2016-08-28] MEDS ORDERED: PHENYLephrine (100 MCG/ML) 5ML SYG ONE ×2 (17:44→18:20)
[2016-08-28] MEDS ORDERED: INDOMETHACIN 50 MG PO ONE (17:50)
[2016-08-28] MEDS ORDERED: PIPER-TAZO 3.375 GM IV (PMX) 100 ML ONE (18:01)
[2016-08-28] MEDS: MIRTAZAPINE 15 MG TAB PO SCH (20:31)
--- NOTE | 2016-08-28 23:34 | GILP ---
DATE OF PROCEDURE: PROCEDURE: ERCP, sphincterotomy, removal of common bile duct stone and placement of a CBD stent. PREOPERATIVE DIAGNOSIS: The patient presenting with history of having a cholecystectomy done, and t he patient had a HIDA scan which showed evidence of a biliary leak, and because of this, procedure i s requested, and procedure is performed to place a CBD stent. POSTOPERATIVE DIAGNOSES: There is evidence of a filling defect noted. After sphincterotomy, common bile duct stone was removed. There was no significant evidence for biliary leak. However, CBD cehry nt was placed. DESCRIPTION OF PROCEDURE: After informed written consent was obtained, the patient was intubated by anesthesiologist, Dr. Salazar. While the patient was in prone position, Olympus video side-viewin g duodenoscope was inserted into the oropharynx, then into the esophagus, subsequently into the stom ach and duodenum. Ampulla was located in normal location, and there is evidence of nodularity of th e ampulla noted. After the CBD stent was placed, biopsy of the ampulla was obtained. However, at t his time, by using the Dreamtome, cannulation of the common bile duct was performed, and when the ca nnulation was performed, evidence of a floating filling defect was noted, and ____ contrast was inj ected. There is no immediate visualization of any contrast extravasating from the common bile duct noted, no cystic duct leak noted. Maybe delayed film might show some leakage, at this time is not o bvious. Sphincterotomy was performed. An 8 mm cut was made by using the cutting wire of the sphinc terotome. By means of the balloon sweeping technique, about 1 cm irregular stone was removed from t he common bile duct. No more filling defects were noted, and at this time, 10 x 7 [place] type of endobiliary prosthesis was inserted into the bile duct, across the ampulla into the duodenum, and t he procedure was terminated. PLAN: Recommend follow the patient closely and inspect the delayed films to see if there is any claudy iary leak. Dictated By: REBEKAH STONE/NTS Conf#: [id number] DID#: [id number] CC: GAGANDEEP ROWAN MD;*EndCC*
[2016-08-29] MEDS: SOD CHLORIDE 0.9% 1,000 ML IV SCH ×5 (01:39→23:58)
--- NOTE | 2016-08-29 03:13 | RADRPT ---
PROCEDURE: Fluoroscopy services. CLINICAL INDICATION: Common bile duct stone. TECHNIQUE: Fluoroscopy services during ERCP COMPARISON: Nuclear medicine hiatus scan dated 08/27/2016. FINDINGS: Fluoroscopy services during ERCP. Multiple intraoperative spot films were obtained at intermediate s tages during ERCP and demonstrate opacification the common bile duct with identified, bile duct ston e. A balloon was deployed. No fluoroscopy time data is provided IMPRESSION: Fluoroscopy services during ERCP with identified choledocholithiasis and balloon deployment. RPTAT: [facility] Physician Taj Date Time Electronically viewed and signed by Physician Taj on 08/29/2016 03:13 RS/
[2016-08-29 06:15] LABS: ADD SCAN DIFF NO
[2016-08-29 06:38] LABS: BASOPHILS % 0.1 % (0.0-2.0); EOSINOPHILS # 0.1 10^3/ul (0.0-0.5); HEMATOCRIT 31.8 % (42.0-52.0); HEMOGLOBIN 11.2 g/dl (14.0-18.0); LYMPHOCYTES # 0.9 10^3/ul (0.8-2.9); LYMPHOCYTES % 8.4 % (15.0-51.0); MEAN CORPUSCULAR HEMOGLOBIN 31.8 pg (29.0-33.0); MEAN CORPUSCULAR HGB CONC 35.2 g/dl (32.0-37.0); MEAN CORPUSCULAR VOLUME 90.3 fl (82.0-101.0); MEAN PLATELET VOLUME 9.6 fl (7.4-10.4); MONOCYTE # 0.5 10^3/ul (0.3-0.9); NEUTROPHIL # 8.8 10^3/ul (1.6-7.5); NEUTROPHILS % 85.1 % (39.0-77.0); PLATELET COUNT 206 10^3/UL (140-415); RED BLOOD COUNT 3.52 10^6/ul (4.70-6.10); RED CELL DISTRIBUTION WIDTH 12.9 % (11.5-14.5); WHITE BLOOD COUNT 10.3 10^3/ul (4.8-10.8)
[2016-08-29 07:21] VITALS: BP 96/52; RESP 18
[2016-08-29 07:37] LABS: CALCIUM 8.4 mg/dl (8.4-10.2); CREATININE 0.71 mg/dl (0.61-1.24); POTASSIUM 3.9 mmol/L (3.5-5.1)
[2016-08-29] MEDS: RANITIDINE 150 MG TAB PO SCH ×2 (08:29→20:07)
[2016-08-29] MEDS: GABAPENTIN 300 MG CAP PO SCH ×3 (08:29→20:07)
[2016-08-29] MEDS: METOCLOPRAMIDE 5 MG TAB PO SCH ×3 (08:29→18:30)
--- NOTE | 2016-08-29 12:24 | PN ---
Date/Time of Note Date/Time of Note DATE: 08/29/16 TIME: 12:21 Assessment/Plan VTE Prophylaxis VTE Prophylaxis Intervention: SCD's Lines/Catheters IV C[facility]ter Type (from [facility]): Peripheral IV Assessment/Plan Chief Complaint/Hosp Course Patient status post ERCP yesterday, started on clear liquid diet tolerates it well, denies any emesis. Assessment/Plan - Biliary leak from the cystic duct stump as note on the HIDA scan, Dr. An is following in gastroenterology consultation, s/p ERCP, sphincterotomy, removal of common bile duct stone and placement of a CBD stent yesterday. - Symptomatic gallstones, status post status post laparoscopic converted to open cholecystectomy. Continue to follow-up surgical recommendation. Continue [place] and morphine as needed for pain. - Chronic lower back pain with history of lumbar burst fracture due to trauma, status post surgery. Further recommendations based on clinical course. Plan of care discussed with Dr. Anguiano. Problems: Exam/Review of Systems Vital Signs Vitals Vital Signs Date Time Temp Pulse Resp B/P Pulse Ox O2 Delivery O2 Flow Rate FiO2 08/29/16 08:00 Nasal Cannula 08/29/16 07:21 98.8 97 18 96/52 92 08/28/16 21:57 1.5 Intake and Output 08/28/16 08/28/16 08/29/16 15:00 23:00 07:00 Intake Total 300 ml 700 ml 1470 ml Output Total 1675 ml 950 ml Balance 300 ml -975 ml 520 ml Exam Constitutional: alert Head: normocephalic Neck: supple Respiratory: clear to auscultation Cardiovascular: nl pulses Gastrointestinal: other (Status post surgery was ETTA drain), soft Extremities: normal pulses Results Result Diagram: 08/29/16 0535 08/29/16 0535 Results 24 hrs Laboratory Tests Test 08/29/16 05:35 White Blood Count 10.3 Red Blood Count 3.52 L Hemoglobin 11.2 L Hematocrit 31.8 L Mean Corpuscular Volume 90.3 Mean Corpuscular Hemoglobin 31.8 Mean Corpuscular Hemoglobin Concent 35.2 Red Cell Distribution Width 12.9 Platelet Count 206 Mean Platelet Volume 9.6 Neutrophils % 85.1 H Lymphocytes % 8.4 L Monocytes % 5.0 Eosinophils % 1.0 Basophils % 0.1 Nucleated Red Blood Cells % 0.0 Neutrophils # 8.8 H Lymphocytes # 0.9 Monocytes # 0.5 Eosinophils # 0.1 Basophils # 0.0 Nucleated Red Blood Cells # 0.0 Sodium Level 141 Potassium Level 3.9 Chloride Level 105 Carbon Dioxide Level 28 Anion Gap 12 Blood Urea Nitrogen 11 Creatinine 0.71 Glucose Level 98 Calcium Level 8.4 Medications Medications Current Medications Morphine Sulfate (morphine) 2 mg Q2H PRN IV PAIN LEVEL 6-10 Last administered on 08/28/16 16:32; Admin Dose 2 MG; Start 08/24/16 at 14:00 Acetaminophen/ Hydrocodone Bitart 1 tab 1 tab Q6H PRN PO PAIN LEVEL 6-10 Last administered on 08/26/16 21:08; Admin Dose 1 TAB; Start 08/24/16 at 14:00 Sodium Chloride (NS) 1,000 ml @ 100 mls/hr Q10H IV Last administered on 12:12; Admin Dose 100 MLS/HR; Start 08/24/16 at 13:58 Gabapentin (Neurontin) 600 mg TID PO Last administered on 08/29/16 12:09; Admin Dose 600 MG; Start 08/24/16 at 21:00 Mirtazapine (Remeron) 15 mg HS PO Last administered on 08/28/16 20:31; Admin Dose 15 MG; Start 08/24/16 at 21:00 Ranitidine HCl (Zantac) 150 mg BID PO Last administered on 08/29/16 08:29; Admin Dose 150 MG; Start 08/24/16 at 21:00 FELIBERTO SANTOS Aug 29, 2016 12:24
--- NOTE | 2016-08-29 13:15 | PN ---
Date/Time of Note Date/Time of Note DATE: 08/29/16 TIME: 13:14 Assessment/Plan VTE Prophylaxis VTE Prophylaxis Intervention: SCD's Lines/Catheters IV Catheter Type (from Nrsg): Peripheral IV Assessment/Plan Chief Complaint/Hosp Course s/p lap gabi converted to open due to intrahepatic gallbladder Problems: Assessment/Plan s/p ercp with bile duct stone drain in place Subjective 24 Hr Interval Summary Free Text/Dictation no new issues, tolerating diet, ERCP shows bile duct stone which was removed Exam/Review of Systems Vital Signs Vitals Vital Signs Date Time Temp Pulse Resp B/P Pulse Ox O2 Delivery O2 Flow Rate FiO2 08/29/16 08:00 Nasal Cannula 08/29/16 07:21 98.8 97 18 96/52 92 08/28/16 21:57 1.5 Intake and Output 08/28/16 08/28/16 08/29/16 15:00 23:00 07:00 Intake Total 300 ml 700 ml 1470 ml Output Total 1675 ml 950 ml Balance 300 ml -975 ml 520 ml Exam c/d/i Results Result Diagram: 08/29/16 0535 08/29/16 0535 Results 24 hrs Laboratory Tests Test 08/29/16 05:35 White Blood Count 10.3 Red Blood Count 3.52 L Hemoglobin 11.2 L Hematocrit 31.8 L Mean Corpuscular Volume 90.3 Mean Corpuscular Hemoglobin 31.8 Mean Corpuscular Hemoglobin Concent 35.2 Red Cell Distribution Width 12.9 Platelet Count 206 Mean Platelet Volume 9.6 Neutrophils % 85.1 H Lymphocytes % 8.4 L Monocytes % 5.0 Eosinophils % 1.0 Basophils % 0.1 Nucleated Red Blood Cells % 0.0 Neutrophils # 8.8 H Lymphocytes # 0.9 Monocytes # 0.5 Eosinophils # 0.1 Basophils # 0.0 Nucleated Red Blood Cells # 0.0 Sodium Level 141 Potassium Level 3.9 Chloride Level 105 Carbon Dioxide Level 28 Anion Gap 12 Blood Urea Nitrogen 11 Creatinine 0.71 Glucose Level 98 Calcium Level 8.4 Medications Medications Current Medications Morphine Sulfate (morphine) 2 mg Q2H PRN IV PAIN LEVEL 6-10 Last administered on 08/28/16t 16:32; Admin Dose 2 MG; Start 08/24/16 at 14:00 Acetaminophen/ Hydrocodone Bitart 1 tab 1 tab Q6H PRN PO PAIN LEVEL 6-10 Last administered on 08/26/16 21:08; Admin Dose 1 TAB; Start 08/24/16 at 14:00 Sodium Chloride (NS) 1,000 ml @ 100 mls/hr Q10H IV Last administered on 12:12; Admin Dose 100 MLS/HR; Start 08/24/16 at 13:58 Gabapentin (Neurontin) 600 mg TID PO Last administered on 08/29/16 12:09; Admin Dose 600 MG; Start 08/24/16 at 21:00 Mirtazapine (Remeron) 15 mg HS PO Last administered on 08/28/16 20:31; Admin Dose 15 MG; Start 08/24/16 at 21:00 Ranitidine HCl (Zantac) 150 mg BID PO Last administered on 08/29/16 08:29; Admin Dose 150 MG; Start 08/24/16 at 21:00 Allison MARIE Aug 29, 2016 13:15
[2016-08-29 19:34] VITALS: BP 93/53; PULSE 98; RESP 18
[2016-08-29] MEDS: HYDROCODONE/APAP (5/325) TAB PO PRN (19:37)
[2016-08-29 20:00] VITALS: BP 104/59; RESP 18
[2016-08-29] MEDS: MIRTAZAPINE 15 MG TAB PO SCH (20:07)
[2016-08-29 20:43] VITALS: BP 104/59; PULSE 96; RESP 18
[2016-08-30] MEDS: VANCOMYCIN HCL 250 MG/5ML POSYG PO SCH ×5 (00:51→23:46)
[2016-08-30 06:02] LABS: ADD SCAN DIFF NO
[2016-08-30 06:14] LABS: BASOPHILS % 0.2 % (0.0-2.0); EOSINOPHILS # 0.2 10^3/ul (0.0-0.5); EOSINOPHILS % 2.3 % (0.0-7.0); HEMOGLOBIN 11.2 g/dl (14.0-18.0); LYMPHOCYTES # 1.3 10^3/ul (0.8-2.9); LYMPHOCYTES % 12.2 % (15.0-51.0); MEAN CORPUSCULAR HEMOGLOBIN 31.2 pg (29.0-33.0); MEAN CORPUSCULAR HGB CONC 33.9 g/dl (32.0-37.0); MEAN CORPUSCULAR VOLUME 91.9 fl (82.0-101.0); MEAN PLATELET VOLUME 9.6 fl (7.4-10.4); MONOCYTE # 0.5 10^3/ul (0.3-0.9); MONOCYTES % 4.4 % (0.0-11.0); NEUTROPHIL # 8.5 10^3/ul (1.6-7.5); NEUTROPHILS % 80.4 % (39.0-77.0); PLATELET COUNT 210 10^3/UL (140-415); RED BLOOD COUNT 3.59 10^6/ul (4.70-6.10); RED CELL DISTRIBUTION WIDTH 13.3 % (11.5-14.5); WHITE BLOOD COUNT 10.6 10^3/ul (4.8-10.8)
[2016-08-30 06:32] LABS: CALCIUM 8.2 mg/dl (8.4-10.2); CREATININE 0.71 mg/dl (0.61-1.24); POTASSIUM 3.4 mmol/L (3.5-5.1)
--- NOTE | 2016-08-30 06:55 | PN ---
DATE: 08/29/2016 SUBJECTIVE: The patient has no abdominal pain. OBJECTIVE: He appears well, not in distress. Vital signs are normal. Yesterday did ERCP and frances meena a common bile duct stone, and CBD stent was placed. It was felt that he may have a biliary leak , but on ERCP, there was no biliary leak. After removing the CBD stone, a CBD stent was placed. IMPRESSION: Now the patient appears to be doing well status post ERCP. PLAN: Recommend remove the CBD stent in 1 month as an outpatient. Dictated By: REBEKAH STONE/MILLY Conf#: [id number] DID#: [id number]
[2016-08-30 07:55] VITALS: BP 103/57; RESP 18
[2016-08-30] MEDS: GABAPENTIN 300 MG CAP PO SCH ×3 (08:33→21:22)
[2016-08-30] MEDS: RANITIDINE 150 MG TAB PO SCH ×2 (08:33→21:22)
[2016-08-30] MEDS: METOCLOPRAMIDE 5 MG TAB PO SCH ×3 (08:33→17:31)
[2016-08-30] MEDS: SOD CHLORIDE 0.9% 1,000 ML IV SCH ×2 (08:34→19:40)
[2016-08-30 08:47] LABS: AMYLASE 58 U/L (11-123)
--- NOTE | 2016-08-30 11:07 | PN ---
Date/Time of Note Date/Time of Note DATE: 08/30/16 TIME: 11:05 Assessment/Plan VTE Prophylaxis VTE Prophylaxis Intervention: other Lines/Catheters IV Catheter Type (from Nrs): Peripheral IV Assessment/Plan Assessment/Plan - Stool c-diff positive - po vanco - contact isolation - Biliary leak from the cystic duct stump as note on the HIDA scan, Dr. An is following in gastroenterology consultation, s/p ERCP, sphincterotomy, removal of common bile duct stone and placement of a CBD stent yesterday. - Symptomatic gallstones, status post status post laparoscopic converted to open cholecystectomy. Continue to follow-up surgical recommendation. Continue [place] and morphine as needed for pain. - Chronic lower back pain with history of lumbar burst fracture due to trauma, status post surgery. Further recommendations based on clinical course. Plan of care discussed with Dr. Anguiano. Subjective 24 Hr Interval Summary Free Text/Dictation resting, patient denies any complaints. dw staff- stool c- diff positive ENT: no complaints Respiratory: no complaints Cardiovascular: no complaints Exam/Review of Systems Vital Signs Vitals Vital Signs Date Time Temp Pulse Resp B/P Pulse Ox O2 Delivery O2 Flow Rate FiO2 08/30/16 07:55 98.9 79 18 103/57 93 08/29/16 20:43 Room Air 08/28/16 21:57 1.5 Intake and Output 08/29/16 08/29/16 08/30/16 15:00 23:00 07:00 Intake Total 1720 ml 1210 ml Output Total 10 ml 1220 ml 15 ml Balance -10 ml 500 ml 1195 ml Exam Constitutional: alert, well developed Respiratory: clear to auscultation, normal air movement Cardiovascular: nl pulses, regular rate and rhythm Gastrointestinal: other (SP sx), soft, tender (RUQ- tenderness noted on mild palpation) Musculoskeletal: nl extremities to inspection Extremities: normal pulses Neurological: nl mental status, nl speech Results Result Diagram: 08/30/16 0529 08/30/16 0529 Results 24 hrs Laboratory Tests Test 08/30/16 05:29 White Blood Count 10.6 Red Blood Count 3.59 L Hemoglobin 11.2 L Hematocrit 33.0 L Mean Corpuscular Volume 91.9 Mean Corpuscular Hemoglobin 31.2 Mean Corpuscular Hemoglobin Concent 33.9 Red Cell Distribution Width 13.3 Platelet Count 210 Mean Platelet Volume 9.6 Neutrophils % 80.4 H Lymphocytes % 12.2 L Monocytes % 4.4 Eosinophils % 2.3 Basophils % 0.2 Nucleated Red Blood Cells % 0.0 Neutrophils # 8.5 H Lymphocytes # 1.3 Monocytes # 0.5 Eosinophils # 0.2 Basophils # 0.0 Nucleated Red Blood Cells # 0.0 Sodium Level 141 Potassium Level 3.4 L Chloride Level 108 Carbon Dioxide Level 27 Anion Gap 9 Blood Urea Nitrogen 7 Creatinine 0.71 Glucose Level 99 Calcium Level 8.2 L Amylase Level 58 Lipase 37 Medications Medications Current Medications Morphine Sulfate (morphine) 2 mg Q2H PRN IV PAIN LEVEL 6-10 Last administered on 08/28/16 16:32; Admin Dose 2 MG; Start 08/24/16 at 14:00 Acetaminophen/ Hydrocodone Bitart 1 tab 1 tab Q6H PRN PO PAIN LEVEL 6-10 Last administered on 08/29/16 19:37; Admin Dose 1 TAB; Start 08/24/16 at 14:00 Sodium Chloride (NS) 1,000 ml @ 100 mls/hr Q10H IV Last administered on 08:34; Admin Dose 100 MLS/HR; Start 08/24/16 at 13:58 Gabapentin (Neurontin) 600 mg TID PO Last administered on 08/30/16 08:33; Admin Dose 600 MG; Start 08/24/16 at 21:00 Mirtazapine (Remeron) 15 mg HS PO Last administered on 08/29/16 20:07; Admin Dose 15 MG; Start 08/24/16 at 21:00 Ranitidine HCl (Zantac) 150 mg BID PO Last administered on 08/30/16 08:33; Admin Dose 150 MG; Start 08/24/16 at 21:00 Vancomycin HCl (Vancomycin Oral Syringe) 250 mg Q6 PO Last administered on 08/30 05:16; Admin Dose 250 MG; Start 08/30/16 at 00:00 Acetaminophen (Tylenol Tab) 650 mg Q6H PRN PO PAIN AND OR ELEVATED TEMP; Start 08/29/16 at 21:00 BETITO HOLDER Aug 30, 2016 11:07
[2016-08-30] MEDS ORDERED: POTASSIUM CHLORIDE (SR) 20 MEQ TAB PO STA (13:27)
[2016-08-30 20:00] VITALS: BP 114/56; RESP 18
[2016-08-30] MEDS: MIRTAZAPINE 15 MG TAB PO SCH (21:22)
[2016-08-30] MEDS: HYDROCODONE/APAP (5/325) TAB PO PRN (21:23)
[2016-08-31] MEDS: SOD CHLORIDE 0.9% 1,000 ML IV SCH ×3 (05:41→18:10)
[2016-08-31] MEDS: VANCOMYCIN HCL 250 MG/5ML POSYG PO SCH ×3 (05:41→18:09)
[2016-08-31 06:00] LABS: ADD SCAN DIFF NO
[2016-08-31 06:19] LABS: BASOPHILS % 0.3 % (0.0-2.0); EOSINOPHILS # 0.4 10^3/ul (0.0-0.5); EOSINOPHILS % 4.9 % (0.0-7.0); HEMATOCRIT 33.8 % (42.0-52.0); HEMOGLOBIN 11.2 g/dl (14.0-18.0); LYMPHOCYTES # 1.6 10^3/ul (0.8-2.9); LYMPHOCYTES % 18.3 % (15.0-51.0); MEAN CORPUSCULAR HEMOGLOBIN 30.8 pg (29.0-33.0); MEAN CORPUSCULAR HGB CONC 33.1 g/dl (32.0-37.0); MEAN CORPUSCULAR VOLUME 92.9 fl (82.0-101.0); MEAN PLATELET VOLUME 9.4 fl (7.4-10.4); MONOCYTE # 0.4 10^3/ul (0.3-0.9); MONOCYTES % 5.1 % (0.0-11.0); NEUTROPHIL # 6.1 10^3/ul (1.6-7.5); NEUTROPHILS % 71.1 % (39.0-77.0); PLATELET COUNT 238 10^3/UL (140-415); RED BLOOD COUNT 3.64 10^6/ul (4.70-6.10); RED CELL DISTRIBUTION WIDTH 13.3 % (11.5-14.5); WHITE BLOOD COUNT 8.6 10^3/ul (4.8-10.8)
[2016-08-31 06:50] LABS: CALCIUM 8.6 mg/dl (8.4-10.2); CREATININE 0.73 mg/dl (0.61-1.24); POTASSIUM 4.3 mmol/L (3.5-5.1)
[2016-08-31 08:24] VITALS: BP 99/57; RESP 18
[2016-08-31] MEDS: RANITIDINE 150 MG TAB PO SCH ×2 (08:53→20:30)
[2016-08-31] MEDS: METOCLOPRAMIDE 5 MG TAB PO SCH ×2 (08:53→12:34)
[2016-08-31] MEDS: GABAPENTIN 300 MG CAP PO SCH ×3 (08:53→20:30)
[2016-08-31 10:55] LABS: ALBUMIN 3.1 g/dl (3.3-4.9); BILIRUBIN,INDIRECT 0.2 mg/dl (0-1.1); BILIRUBIN,TOTAL 0.2 mg/dl (0.2-1.3); TOTAL PROTEIN 4.5 g/dl (6.1-8.1)
--- NOTE | 2016-08-31 14:06 | PN ---
Date/Time of Note Date/Time of Note DATE: 08/31/16 TIME: 14:04 Assessment/Plan VTE Prophylaxis VTE Prophylaxis Intervention: SCD's Lines/Catheters IV [facility]ter Type (from [facility]): Peripheral IV Assessment/Plan Chief Complaint/Hosp Course s/p lap gabi converted to open due to intrahepatic gallbladder had bile leak, cbd ok. ercp showed cbd stone Problems: Assessment/Plan now with c diff on abx continue care Subjective 24 Hr Interval Summary Free Text/Dictation c diff positive needs abx Exam/Review of Systems Vital Signs Vitals Vital Signs Date Time Temp Pulse Resp B/P Pulse Ox O2 Delivery O2 Flow Rate FiO2 08/31/16 08:24 99.3 73 18 99/57 93 08/30/16 20:00 Room Air 08/28/16 21:57 1.5 Intake and Output 08/30/16 08/30/16 08/31/16 15:00 23:00 07:00 Intake Total 350 ml 2200 ml 1320 ml Output Total 1160 ml 815 ml Balance 350 ml 1040 ml 505 ml Exam c/d/i drain in place Results Result Diagram: 08/31/16 0517 08/31/16 0539 Results 24 hrs Laboratory Tests Test 08/31/16 05:17 08/31/16 05:39 White Blood Count 8.6 Red Blood Count 3.64 L Hemoglobin 11.2 L Hematocrit 33.8 L Mean Corpuscular Volume 92.9 Mean Corpuscular Hemoglobin 30.8 Mean Corpuscular Hemoglobin Concent 33.1 Red Cell Distribution Width 13.3 Platelet Count 238 Mean Platelet Volume 9.4 Neutrophils % 71.1 Lymphocytes % 18.3 Monocytes % 5.1 Eosinophils % 4.9 Basophils % 0.3 Nucleated Red Blood Cells % 0.0 Neutrophils # 6.1 Lymphocytes # 1.6 Monocytes # 0.4 Eosinophils # 0.4 Basophils # 0.0 Nucleated Red Blood Cells # 0.0 Sodium Level 142 Potassium Level 4.3 Chloride Level 109 Carbon Dioxide Level 29 Anion Gap 8 Blood Urea Nitrogen 7 Creatinine 0.73 Glucose Level 90 Calcium Level 8.6 Total Bilirubin 0.2 Direct Bilirubin 0.00 Indirect Bilirubin 0.2 Aspartate Amino Transf (AST/SGOT) 21 Alanine Aminotransferase (ALT/SGPT) 40 Alkaline Phosphatase 65 Total Protein 4.5 L Albumin 3.1 L Medications Medications Current Medications Morphine Sulfate (morphine) 2 mg Q2H PRN IV PAIN LEVEL 6-10 Last administered on 08/28/16 16:32; Admin Dose 2 MG; Start 08/24/16 at 14:00 Acetaminophen/ Hydrocodone Bitart 1 tab 1 tab Q6H PRN PO PAIN LEVEL 6-10 Last administered on 08/30/16 21:23; Admin Dose 1 TAB; Start 08/24/16 at 14:00 Sodium Chloride (NS) 1,000 ml @ 100 mls/hr Q10H IV Last administered on 05:41; Admin Dose 100 MLS/HR; Start 08/24/16 at 13:58 Gabapentin (Neurontin) 600 mg TID PO Last administered on 08/31/16 12:34; Admin Dose 600 MG; Start 08/24/16 at 21:00 Mirtazapine (Remeron) 15 mg HS PO Last administered on 08/30/16 21:22; Admin Dose 15 MG; Start 08/24/16 at 21:00 Ranitidine HCl (Zantac) 150 mg BID PO Last administered on 08/31/16 08:53; Admin Dose 150 MG; Start 08/24/16 at 21:00 Vancomycin HCl (Vancomycin Oral Syringe) 250 mg Q6 PO Last administered on 08/31 12:34; Admin Dose 250 MG; Start 08/30/16 at 00:00 Acetaminophen (Tylenol Tab) 650 mg Q6H PRN PO PAIN AND OR ELEVATED TEMP; Start 08/29/16 at 21:00 Allison MARIE Aug 31, 2016 14:06
--- NOTE | 2016-08-31 17:58 | PN ---
Date/Time of Note Date/Time of Note DATE: 08/31/16 TIME: 17:55 Assessment/Plan VTE Prophylaxis VTE Prophylaxis Intervention: SCD's Lines/Catheters IV Catheter Type (from [facility]): Peripheral IV Assessment/Plan Chief Complaint/Hosp Course Patient's complains of diarrhea, stool is positive for C. difficile, started on p.o. vancomycin, patient denies any nausea vomiting. Assessment/Plan - C. difficile colitis, continue vancomycin. - Common bile duct stone. Dr. An is following in gastroenterology consultation, s/p ERCP, sphincterotomy, removal of common bile duct stone and placement of a CBD stent 05/29. - Symptomatic gallstones, status post status post laparoscopic converted to open cholecystectomy. Continue to follow-up surgical recommendation. Continue [place] and morphine as needed for pain. - Chronic lower back pain with history of lumbar burst fracture due to trauma, status post surgery. Further recommendations based on clinical course. Plan of care discussed with Dr. Anguiano. Problems: Exam/Review of Systems Vital Signs Vitals Vital Signs Date Time Temp Pulse Resp B/P Pulse Ox O2 Delivery O2 Flow Rate FiO2 08/31/16 08:24 99.3 73 18 99/57 93 08/30/16 20:00 Room Air 08/28/16 21:57 1.5 Intake and Output 08/30/16 08/30/16 08/31/16 15:00 23:00 07:00 Intake Total 350 ml 2200 ml 1320 ml Output Total 1160 ml 815 ml Balance 350 ml 1040 ml 505 ml Exam Constitutional: alert Head: normocephalic Neck: supple Respiratory: clear to auscultation Cardiovascular: nl pulses Gastrointestinal: other (Status post surgery was ETTA drain), soft Extremities: normal pulses Results Result Diagram: 08/31/1617 08/31/16 0539 Results 24 hrs Laboratory Tests Test 08/31/16 05:17 08/31/16 05:39 White Blood Count 8.6 Red Blood Count 3.64 L Hemoglobin 11.2 L Hematocrit 33.8 L Mean Corpuscular Volume 92.9 Mean Corpuscular Hemoglobin 30.8 Mean Corpuscular Hemoglobin Concent 33.1 Red Cell Distribution Width 13.3 Platelet Count 238 Mean Platelet Volume 9.4 Neutrophils % 71.1 Lymphocytes % 18.3 Monocytes % 5.1 Eosinophils % 4.9 Basophils % 0.3 Nucleated Red Blood Cells % 0.0 Neutrophils # 6.1 Lymphocytes # 1.6 Monocytes # 0.4 Eosinophils # 0.4 Basophils # 0.0 Nucleated Red Blood Cells # 0.0 Sodium Level 142 Potassium Level 4.3 Chloride Level 109 Carbon Dioxide Level 29 Anion Gap 8 Blood Urea Nitrogen 7 Creatinine 0.73 Glucose Level 90 Calcium Level 8.6 Total Bilirubin 0.2 Direct Bilirubin 0.00 Indirect Bilirubin 0.2 Aspartate Amino Transf (AST/SGOT) 21 Alanine Aminotransferase (ALT/SGPT) 40 Alkaline Phosphatase 65 Total Protein 4.5 L Albumin 3.1 L Medications Medications Current Medications Morphine Sulfate (morphine) 2 mg Q2H PRN IV PAIN LEVEL 6-10 Last administered on 08/28/16 16:32; Admin Dose 2 MG; Start 08/24/16 at 14:00 Acetaminophen/ Hydrocodone Bitart 1 tab 1 tab Q6H PRN PO PAIN LEVEL 6-10 Last administered on 08/30/16 21:23; Admin Dose 1 TAB; Start 08/24/16 at 14:00 Sodium Chloride (NS) 1,000 ml @ 100 mls/hr Q10H IV Last administered on 05:41; Admin Dose 100 MLS/HR; Start 08/24/16 at 13:58 Gabapentin (Neurontin) 600 mg TID PO Last administered on 08/31/16 12:34; Admin Dose 600 MG; Start 08/24/16 at 21:00 Mirtazapine (Remeron) 15 mg HS PO Last administered on 08/30/16 21:22; Admin Dose 15 MG; Start 08/24/16 at 21:00 Ranitidine HCl (Zantac) 150 mg BID PO Last administered on 08/31/16 08:53; Admin Dose 150 MG; Start 08/24/16 at 21:00 Vancomycin HCl (Vancomycin Oral Syringe) 250 mg Q6 PO Last administered on 08/31 12:34; Admin Dose 250 MG; Start 08/30/16 at 00:00 Acetaminophen (Tylenol Tab) 650 mg Q6H PRN PO PAIN AND OR ELEVATED TEMP; Start 08/29/16 at 21:00 FELIBERTO SANTOS Aug 31, 2016 17:58
[2016-08-31 18:00] VITALS: BP 121/63; PULSE 116; RESP 18
[2016-08-31] MEDS: ACETAMINOPHEN 325 MG TAB PO PRN (18:05)
[2016-08-31 19:28] VITALS: BP 113/57; RESP 20
[2016-08-31] MEDS: metroNIDAZOLE 500 MG/NS (PMX) 100 ML IVPB SCH ×2 (20:30→21:30)
[2016-08-31] MEDS: MIRTAZAPINE 15 MG TAB PO SCH (20:30)
[2016-08-31] MEDS: MEROPENEM 1 GM/100 ML (PMX) 100 ML IVPB SCH (20:31)
[2016-08-31] MEDS ORDERED: MEROPENEM 1 GM/100 ML (PMX) 100 ML IVPB SCH (21:00)
[2016-09-01] MEDS: VANCOMYCIN HCL 250 MG/5ML POSYG PO SCH ×4 (00:51→17:47)
[2016-09-01] MEDS: MEROPENEM 1 GM/100 ML (PMX) 100 ML IVPB SCH ×3 (04:51→22:28)
[2016-09-01] MEDS: ACETAMINOPHEN 325 MG TAB PO PRN ×3 (05:52→21:24)
[2016-09-01] MEDS: metroNIDAZOLE 500 MG/NS (PMX) 100 ML IVPB SCH ×3 (05:52→21:24)
[2016-09-01 06:11] LABS: ADD SCAN DIFF NO
[2016-09-01 06:13] LABS: BASOPHILS % 0.2 % (0.0-2.0); EOSINOPHILS % 0.1 % (0.0-7.0); HEMOGLOBIN 11.7 g/dl (14.0-18.0); LYMPHOCYTES # 1.8 10^3/ul (0.8-2.9); LYMPHOCYTES % 10.1 % (15.0-51.0); MEAN CORPUSCULAR HGB CONC 34.4 g/dl (32.0-37.0); MEAN CORPUSCULAR VOLUME 90.2 fl (82.0-101.0); MEAN PLATELET VOLUME 9.3 fl (7.4-10.4); MONOCYTE # 1.2 10^3/ul (0.3-0.9); MONOCYTES % 6.7 % (0.0-11.0); NEUTROPHIL # 14.6 10^3/ul (1.6-7.5); NEUTROPHILS % 81.8 % (39.0-77.0); PLATELET COUNT 285 10^3/UL (140-415); RED BLOOD COUNT 3.77 10^6/ul (4.70-6.10); RED CELL DISTRIBUTION WIDTH 13.2 % (11.5-14.5); WHITE BLOOD COUNT 17.8 10^3/ul (4.8-10.8)
[2016-09-01 07:13] LABS: CALCIUM 8.3 mg/dl (8.4-10.2); CREATININE 0.85 mg/dl (0.61-1.24); POTASSIUM 3.7 mmol/L (3.5-5.1)
[2016-09-01 08:16] VITALS: BP 90/54; RESP 20
[2016-09-01] MEDS: GABAPENTIN 300 MG CAP PO SCH ×3 (08:38→21:23)
[2016-09-01] MEDS: RANITIDINE 150 MG TAB PO SCH ×2 (08:38→21:24)
[2016-09-01] MEDS: SOD CHLORIDE 0.9% 1,000 ML IV SCH ×2 (08:40→21:58)
--- NOTE | 2016-09-01 14:00 | PN ---
Date/Time of Note Date/Time of Note DATE: 09/01/16 TIME: 13:58 Assessment/Plan Lines/Catheters IV Catheter Type (from Nrs): Peripheral IV Assessment/Plan Assessment/Plan - C. difficile colitis, continue vancomycin. - Common bile duct stone. Dr. An is following in gastroenterology consultation, s/p ERCP, sphincterotomy, removal of common bile duct stone and placement of a CBD stent 05/29. - Symptomatic gallstones, status post status post laparoscopic converted to open cholecystectomy. Continue to follow-up surgical recommendation. Continue Joaquin and morphine as needed for pain. - Chronic lower back pain with history of lumbar burst fracture due to trauma, status post surgery. Further recommendations based on clinical course. Plan of care discussed with Dr. Anguiano. Subjective 24 Hr Interval Summary Respiratory: no complaints Cardiovascular: no complaints Gastrointestinal: pain Exam/Review of Systems Vital Signs Vitals Vital Signs Date Time Temp Pulse Resp B/P Pulse Ox O2 Delivery O2 Flow Rate FiO2 09/01/16 08:16 98.7 20 90/54 94 08/31/16 19:28 115 08/31/16 18:00 Room Air 08/28/16 21:57 1.5 Intake and Output 08/31/16 08/31/16 09/01/16 15:00 23:00 07:00 Intake Total 2480 ml 600 ml Output Total 1775 ml 1470 ml Balance 705 ml -870 ml Exam Constitutional: alert, well developed Results Result Diagram: 09/01/16 0518 09/01/16 0518 Results 24 hrs Laboratory Tests Test 09/01/16 05:18 White Blood Count 17.8 #H Red Blood Count 3.77 L Hemoglobin 11.7 L Hematocrit 34.0 L Mean Corpuscular Volume 90.2 Mean Corpuscular Hemoglobin 31.0 Mean Corpuscular Hemoglobin Concent 34.4 Red Cell Distribution Width 13.2 Platelet Count 285 Mean Platelet Volume 9.3 Neutrophils % 81.8 H Lymphocytes % 10.1 L Monocytes % 6.7 Eosinophils % 0.1 Basophils % 0.2 Nucleated Red Blood Cells % 0.0 Neutrophils # 14.6 H Lymphocytes # 1.8 Monocytes # 1.2 H Eosinophils # 0.0 Basophils # 0.0 Nucleated Red Blood Cells # 0.0 Sodium Level 138 Potassium Level 3.7 Chloride Level 104 Carbon Dioxide Level 28 Anion Gap 10 Blood Urea Nitrogen 8 Creatinine 0.85 Glucose Level 114 Calcium Level 8.3 L Medications Medications Current Medications Morphine Sulfate (morphine) 2 mg Q2H PRN IV PAIN LEVEL 6-10 Last administered on 08/28/16 16:32; Admin Dose 2 MG; Start 08/24/16 at 14:00 Acetaminophen/ Hydrocodone Bitart 1 tab 1 tab Q6H PRN PO PAIN LEVEL 6-10 Last administered on 08/30/16 21:23; Admin Dose 1 TAB; Start 08/24/16 at 14:00 Sodium Chloride (NS) 1,000 ml @ 100 mls/hr Q10H IV Last administered on 08:40; Admin Dose 100 MLS/HR; Start 08/24/16 at 13:58 Gabapentin (Neurontin) 600 mg TID PO Last administered on 09/01/16 12:42; Admin Dose 600 MG; Start 08/24/16 at 21:00 Mirtazapine (Remeron) 15 mg HS PO Last administered on 08/31/16 20:30; Admin Dose 15 MG; Start 08/24/16 at 21:00 Ranitidine HCl (Zantac) 150 mg BID PO Last administered on 09/01/16 08:38; Admin Dose 150 MG; Start 08/24/16 at 21:00 Vancomycin HCl (Vancomycin Oral Syringe) 250 mg Q6 PO Last administered on 09/01 12:42; Admin Dose 250 MG; Start 08/30/16 at 00:00 Acetaminophen 650 mg 650 mg Q6H PRN PO PAIN AND OR ELEVATED TEMP Last administered on 09/01/16 05:52; Admin Dose 650 MG; Start 08/29/16 at 21:00 Metronidazole 100 ml @ 100 mls/hr Q8 IVPB Last administered on 09/01/16 05:52 ; Admin Dose 100 MLS/HR; Start 08/31/16 at 21:00 Meropenem (Merrem 1 Gm/100 ml (Pmx)) 100 ml @ 200 mls/hr Q8 IVPB Last administered on 09/01/16 13:25; Admin Dose 200 MLS/HR; Start 08/31/16 at 22:00 BETITO HOLDER Sep 01, 2016 14:00
[2016-09-01 20:00] VITALS: BP 93/52; RESP 20
[2016-09-01] MEDS: MIRTAZAPINE 15 MG TAB PO SCH (21:24)
[2016-09-02] MEDS: VANCOMYCIN HCL 250 MG/5ML POSYG PO SCH ×4 (00:22→18:02)
[2016-09-02] MEDS: metroNIDAZOLE 500 MG/NS (PMX) 100 ML IVPB SCH ×3 (05:22→22:03)
[2016-09-02] MEDS: SOD CHLORIDE 0.9% 1,000 ML IV SCH ×2 (05:22→17:58)
[2016-09-02] MEDS: MEROPENEM 1 GM/100 ML (PMX) 100 ML IVPB SCH ×3 (05:22→21:12)
[2016-09-02] MEDS: ACETAMINOPHEN 325 MG TAB PO PRN ×2 (05:29→21:13)
[2016-09-02 06:42] LABS: ADD SCAN DIFF NO
[2016-09-02 06:57] LABS: BASOPHILS % 0.2 % (0.0-2.0); EOSINOPHILS % 0.2 % (0.0-7.0); HEMATOCRIT 32.7 % (42.0-52.0); HEMOGLOBIN 11.4 g/dl (14.0-18.0); LYMPHOCYTES # 1.3 10^3/ul (0.8-2.9); LYMPHOCYTES % 7.4 % (15.0-51.0); MEAN CORPUSCULAR HEMOGLOBIN 31.4 pg (29.0-33.0); MEAN CORPUSCULAR HGB CONC 34.9 g/dl (32.0-37.0); MEAN CORPUSCULAR VOLUME 90.1 fl (82.0-101.0); MEAN PLATELET VOLUME 9.3 fl (7.4-10.4); MONOCYTE # 0.9 10^3/ul (0.3-0.9); MONOCYTES % 5.1 % (0.0-11.0); NEUTROPHILS % 86.4 % (39.0-77.0); PLATELET COUNT 299 10^3/UL (140-415); RED BLOOD COUNT 3.63 10^6/ul (4.70-6.10); RED CELL DISTRIBUTION WIDTH 13.3 % (11.5-14.5); WHITE BLOOD COUNT 17.4 10^3/ul (4.8-10.8)
[2016-09-02 07:46] VITALS: BP 89/51; RESP 20
[2016-09-02] MEDS: RANITIDINE 150 MG TAB PO SCH ×2 (09:46→21:12)
[2016-09-02] MEDS: GABAPENTIN 300 MG CAP PO SCH ×3 (09:46→21:12)
--- NOTE | 2016-09-02 14:54 | PN ---
Date/Time of Note Date/Time of Note DATE: 09/02/16 TIME: 14:53 Assessment/Plan VTE Prophylaxis VTE Prophylaxis Intervention: other Lines/Catheters [facility] Peripheral IV Urinary Cath still in place: No Assessment/Plan Assessment/Plan - C. difficile colitis, continue vancomycin. - Common bile duct stone. Dr. An is following in gastroenterology consultation, s/p ERCP, sphincterotomy, removal of common bile duct stone and placement of a CBD stent 05/29. - Symptomatic gallstones, status post status post laparoscopic converted to open cholecystectomy. Continue to follow-up surgical recommendation. Continue [place] and morphine as needed for pain. - Chronic lower back pain with history of lumbar burst fracture due to trauma, status post surgery. Further recommendations based on clinical course. Plan of care discussed with Dr. Anguiano. Exam/Review of Systems Vital Signs Vitals Vital Signs Date Time Temp Pulse Resp B/P Pulse Ox O2 Delivery O2 Flow Rate FiO2 09/02/16 07:46 99.0 20 89/51 92 09/01/16 20:00 91 08/31/16 18:00 Room Air Intake and Output 09/01/16 09/01/16 09/02/16 15:00 23:00 07:00 Intake Total 2200 ml 1880 ml 1400 ml Output Total 1080 ml 1810 ml Balance 2200 ml 800 ml -410 ml Exam Constitutional: alert Respiratory: clear to auscultation, normal air movement Cardiovascular: nl pulses, regular rate and rhythm Gastrointestinal: non-tender, soft Musculoskeletal: nl extremities to inspection Extremities: normal pulses Neurological: nl speech Results Result Diagram: 09/02/16 0615 09/01/16 0518 Results 24 hrs Laboratory Tests Test 09/02/16 06:15 White Blood Count 17.4 H Red Blood Count 3.63 L Hemoglobin 11.4 L Hematocrit 32.7 L Mean Corpuscular Volume 90.1 Mean Corpuscular Hemoglobin 31.4 Mean Corpuscular Hemoglobin Concent 34.9 Red Cell Distribution Width 13.3 Platelet Count 299 Mean Platelet Volume 9.3 Neutrophils % 86.4 H Lymphocytes % 7.4 L Monocytes % 5.1 Eosinophils % 0.2 Basophils % 0.2 Nucleated Red Blood Cells % 0.0 Neutrophils # 15.0 H Lymphocytes # 1.3 Monocytes # 0.9 Eosinophils # 0.0 Basophils # 0.0 Nucleated Red Blood Cells # 0.0 Medications Medications Current Medications Morphine Sulfate (morphine) 2 mg Q2H PRN IV PAIN LEVEL 6-10 Last administered on 08/28/16 16:32; Admin Dose 2 MG; Start 08/24/16 at 14:00 Acetaminophen/ Hydrocodone Bitart 1 tab 1 tab Q6H PRN PO PAIN LEVEL 6-10 Last administered on 08/30/16 21:23; Admin Dose 1 TAB; Start 08/24/16 at 14:00 Sodium Chloride (NS) 1,000 ml @ 100 mls/hr Q10H IV Last administered on 05:22; Admin Dose 100 MLS/HR; Start 08/24/16 at 13:58 Gabapentin (Neurontin) 600 mg TID PO Last administered on 09/02/16 13:03; Admin Dose 600 MG; Start 08/24/16 at 21:00 Mirtazapine (Remeron) 15 mg HS PO Last administered on 09/01/16 21:24; Admin Dose 15 MG; Start 08/24/16 at 21:00 Ranitidine HCl (Zantac) 150 mg BID PO Last administered on 09/02/16 09:46; Admin Dose 150 MG; Start 08/24/16 at 21:00 Vancomycin HCl (Vancomycin Oral Syringe) 250 mg Q6 PO Last administered on 09/02 13:02; Admin Dose 250 MG; Start 08/30/16 at 00:00 Acetaminophen 650 mg 650 mg Q6H PRN PO PAIN AND OR ELEVATED TEMP Last administered on 09/02/16 05:29; Admin Dose 650 MG; Start 08/29/16 at 21:00 Metronidazole 100 ml @ 100 mls/hr Q8 IVPB Last administered on 09/02/16 14:40 ; Admin Dose 100 MLS/HR; Start 08/31/16 at 21:00 Meropenem (Merrem 1 Gm/100 ml (Pmx)) 100 ml @ 200 mls/hr Q8 IVPB Last administered on 09/02/16 13:45; Admin Dose 200 MLS/HR; Start 08/31/16 at 22:00 BETITO HOLDER Sep 02, 2016 14:54
--- NOTE | 2016-09-02 17:50 | PN ---
DATE: 09/02/2016 1. Status post open cholecystectomy. 2. Status post ERCP and sphincterotomy, and removal of the common bile stone and placement of commo n bile duct stent. 3. Status post-leakage from the area of the gallbladder removal. SUBJECTIVE: Feels better. No new complaint. OBJECTIVE: VITAL SIGNS: Temperature 99, heart rate 91, respirations 20, blood pressure 89/51, stable, saturati on 92% on room air. HEENT: Bandar-Sanon drain in the right upper quadrant in the gallbladder fossa has drained 40 mL o f brownish/slightly greenish fluid in the past 24 hours. ABDOMEN: Soft. No diarrhea today. EXTREMITIES: Legs no calf tenderness. Also, status post a positive C. diff few days ago. The patient is getting treatment for C. diff. LABORATORIES: WBC 17,400 with 86% segmented. Hemoglobin is 11.4, hematocrit 32.7. Chemistry was n ot done today. PLAN: Continue current care. Dictated By: ARNAUD MANCIA MD PS/NTS Conf#: [id number] DID#: [id number]
[2016-09-02 19:36] VITALS: BP 99/54; RESP 18
[2016-09-02] MEDS: MIRTAZAPINE 15 MG TAB PO SCH (21:12)
[2016-09-03 00:02] LABS: ADD UMIC YES; UR BILIRUBIN (Dip) NEGATIVE (NEGATIVE); UR BLOOD (Dip) TRACE (NEGATIVE); UR CLARITY CLEAR (CLEAR); UR COLOR LT. YELLOW (YELLOW); UR GLUCOSE (Dip) NEGATIVE (NEGATIVE); UR KETONES (Dip) TRACE (NEGATIVE); UR LEUKOCYTE ESTERASE (Dip) NEGATIVE (NEGATIVE); UR NITRITE (Dip) NEGATIVE (NEGATIVE); UR TOTAL PROTEIN (Dip) NEGATIVE (NEGATIVE); UR UROBILINOGEN (Dip) 0.2 E.U./dL (0.1-1.0)
[2016-09-03 00:07] VITALS: BP 97/51; RESP 18
[2016-09-03 00:28] LABS: UR SQUAMOUS EPITHELIAL CELL RARE; URINE RBCS 0-2 /HPF (0)
[2016-09-03] MEDS: VANCOMYCIN HCL 250 MG/5ML POSYG PO SCH ×4 (00:28→17:48)
[2016-09-03] MEDS: SOD CHLORIDE 0.9% 1,000 ML IV SCH ×2 (02:06→13:58)
[2016-09-03 04:00] VITALS: BP 97/56; RESP 18
[2016-09-03] MEDS: MEROPENEM 1 GM/100 ML (PMX) 100 ML IVPB SCH ×2 (05:37→15:25)
[2016-09-03 05:50] LABS: ADD SCAN DIFF NO
[2016-09-03 05:53] LABS: BASOPHILS % 0.2 % (0.0-2.0); EOSINOPHILS # 0.1 10^3/ul (0.0-0.5); EOSINOPHILS % 0.7 % (0.0-7.0); HEMATOCRIT 32.9 % (42.0-52.0); HEMOGLOBIN 11.1 g/dl (14.0-18.0); LYMPHOCYTES # 1.5 10^3/ul (0.8-2.9); LYMPHOCYTES % 8.8 % (15.0-51.0); MEAN CORPUSCULAR HEMOGLOBIN 31.1 pg (29.0-33.0); MEAN CORPUSCULAR HGB CONC 33.7 g/dl (32.0-37.0); MEAN CORPUSCULAR VOLUME 92.2 fl (82.0-101.0); MEAN PLATELET VOLUME 9.3 fl (7.4-10.4); MONOCYTE # 0.9 10^3/ul (0.3-0.9); MONOCYTES % 5.5 % (0.0-11.0); NEUTROPHIL # 14.1 10^3/ul (1.6-7.5); NEUTROPHILS % 83.9 % (39.0-77.0); PLATELET COUNT 292 10^3/UL (140-415); RED BLOOD COUNT 3.57 10^6/ul (4.70-6.10); RED CELL DISTRIBUTION WIDTH 13.3 % (11.5-14.5); WHITE BLOOD COUNT 16.8 10^3/ul (4.8-10.8)
[2016-09-03] MEDS: metroNIDAZOLE 500 MG/NS (PMX) 100 ML IVPB SCH ×3 (06:26→22:46)
[2016-09-03 06:28] LABS: ALBUMIN 3.2 g/dl (3.3-4.9); ALBUMIN/GLOBULIN RATIO 0.96; BILIRUBIN,INDIRECT 0.3 mg/dl (0-1.1); BILIRUBIN,TOTAL 0.3 mg/dl (0.2-1.3); CALCIUM 8.5 mg/dl (8.4-10.2); CREATININE 0.73 mg/dl (0.61-1.24); POTASSIUM 3.8 mmol/L (3.5-5.1); TOTAL PROTEIN 6.5 g/dl (6.1-8.1)
[2016-09-03 07:57] VITALS: BP 96/51; RESP 20
--- NOTE | 2016-09-03 08:50 | PN ---
DATE: 09/01/2016 1. Status post open cholecystectomy. 2. Status post ERCP, sphincterotomy, retrieval of the common bile duct stone and placement of the stent in the common bile duct by Dr. An. SUBJECTIVE: Feels better today, has a little bit of abdominal pain, no more diarrhea today so far. OBJECTIVE: GENERAL: Awake, alert, lying down in the bed. VITAL SIGNS: Today temperature maximum today 100.3, heart rate 100, respirations 20, blood pressure 90/54, saturation 94% on room air. I should mention the patient had a temperature of 103 last night and blood culture was sent. Also, patient has been C. diff positive. The patient has been started on antibiotics. ABDOMEN: Not distended, it is soft. Mild tenderness here and there. Wound incision is clean. No evidence of infection. EXTREMITIES: No calf tenderness. ASSESSMENT: A 65-year-old gentleman who had a laparoscopic cholecystectomy converted to open about a week ago and after that, the patient and drainage. He showed evidence of drainage of the bilious fluid. HIDA scan showed evidence of some leaking yesterday. Consultation was obtained. It was done and they found a stone in the common bile duct. They removed it and put in a stent. No gross evidence of leak was found. Patient is recovering, but last night had high fever of 103. Blood culture was taken and the report is not back yet. LABORATORY DATA: WBC today is up to 17,800 with 81% segmented, hemoglobin is stable at 11.7 _. Platelet is 285. ____The patient has been started on antibiotics, meropenem, metronidazole IV and vancomycin p.o. 250 mg . Therefore , the most probable cause of fever was the C. diff positive stool and diarrhea. PLAN: Continue with antibiotics as per infectious disease orderes and continue oral intake and observe. Dictated By: ARNAUD SWANN/MILLY Conf#: [id number] DID#: [id number] MTDFelicita
[2016-09-03] MEDS: RANITIDINE 150 MG TAB PO SCH ×2 (09:02→20:23)
[2016-09-03] MEDS: GABAPENTIN 300 MG CAP PO SCH ×3 (09:02→20:23)
[2016-09-03] MEDS ORDERED: VANCOMYCIN IV PER PHARMACY XX SCH (12:30)
--- NOTE | 2016-09-03 12:47 | CONS ---
Date/Time of Note Date/Time of Note DATE: 09/03/16 TIME: 12:29 Assessment/Plan Assessment/Plan Chief Complaint/Hosp Course assessment/impression - sepsis, possible etiologies include C diff, deep seated fluid collections, cholangitis, invasive candidiasis, UTI, HCAP - C diff colitis, resolving - possible deep seated fluid collections post multiple surgical procedures - a high risk for invasive candidiasis, i.e. presence of thrush, intra- abdominal surgeries, receipt of broad spectrum antibacterial medications - h/o symptomatic gallstones s/p lap cholecystectomy converted to open, and placement of a drain on 08/24/2016. Pathologist's review showed chronic cholecystitis with extensive denudation of the mucosa, no malignancy. - h/o possible cholangitis, s/p ERCP, sphincterotomy, removal of common bile duct stone and placement of a CBD stent on 08/28/2016. Pathologist's review showed mild chronic inflammation, no malignancy - labial herpes infection - thrush - chronic lower back pain with history of lumbar burst fracture due to trauma, s /p surgery recommendations - pending results: blood and urine cultures - ordered: culture of fluid in ETTA drain, CXR, CT abd/pel to r/o deep seated infection and cholangitis - continue meropenem (08/31/2016-), add IV vancomycin (09/03/2016-) to cover complicated intra-abdominal infection, possible HCAP, UTI - add empiric caspofungin (09/03/2016-) because Pt is at a risk for invasive candidiasis, i.e. presence of thrush, intra-abdominal surgeries, receipt of broad spectrum antibacterial medications - continue PO vancomycin (08/30/2016-) and IV metronidazole (08/31/2016-) for C diff colitis - add acyclovir (09/03/2016-) x 5 days for herpes labialis - I will adjust his antibiotics based on the final culture results management d/w Pt and his RN Problems: Consultation Date/Type/Reason Admit Date/Time Aug 26, 2016 at 12:13 Date of Consultation: Sep 03, 2016 Type of Consultation: ID Reason for Consultation sepsis Referring Provider: GAGANDEEP ANGUIANO MD Hx of Present Illness This is a 65 yo male who was admitted on 08/24/2016 for symptomatic gallstones. Pt underwent lap cholecystectomy converted to open, and placement of a drain on 08/24/2016. Pathologist's review showed chronic cholecystitis with extensive denudation of the mucosa, no malignancy. This was followed by ERCP, sphincterotomy, removal of common bile duct stone and placement of a CBD stent on 08/28/2016. Pathologist's review showed mild chronic inflammation, no malignancy. On 08/30/2016, Pt was diagnosed with C diff colitis. Pt was started on PO vanc and IV metronidazole. He reports resolution of his diarrhea. However , Pt's WBC level has been elevated for 3 days, and he had temp >102F last night[address] Dr. Anguiano requested ID consultation on this Pt. Constitutional: other (feels very weak), No chills ENT: other (labial sore) Respiratory: no complaints Cardiovascular: no complaints Gastrointestinal: pain Genitourinary: no complaints Musculoskeletal: back pain Skin: no complaints Neurologic: no complaints Endocrine: no complaints Past Medical History Medical History: other (gallstones) Past Surgical History Past Surgical Hx: cholecystectomy, endoscopy Social History Alcohol Use: none Smoking Status: Never smoker Exam/Review of Systems Vital Signs Vitals Vital Signs Date Time Temp Pulse Resp B/P Pulse Ox O2 Delivery O2 Flow Rate FiO2 09/03/16 07:57 98.5 93 20 96/51 91 08/31/16 18:00 Room Air Intake and Output 09/02/16 09/02/16 09/03/16 15:00 23:00 07:00 Intake Total 100 ml 1800 ml 1380 ml Output Total 910 ml 805 ml Balance 100 ml 890 ml 575 ml Exam Constitutional: frail Psych: nl mood/affect, no complaints Head: atraumatic, normocephalic Eyes: nl conjunctiva, nl lids ENMT: nl external ears & nose, other (+thrush, blister on upper lip) Neck: non-tender, supple Respiratory: clear to auscultation, normal air movement Cardiovascular: nl pulses, regular rate and rhythm Gastrointestinal: non-tender, soft, surgical scars (well approximated with stabples, ETTA drain in place) Musculoskeletal: nl extremities to inspection Extremities: normal pulses Neurological: AUDIO TECHNICIAN II-XII intact, nl mental status Skin: nl turgor Results Result Diagram: 09/03/16 0455 09/03/16 0455 Results 24 hrs Laboratory Tests Test 09/02/16 22:01 09/03/16 04:55 Urine Color LT. YELLOW Urine Clarity CLEAR Urine pH 7.0 Urine Specific [place] 1.015 Urine Ketones TRACE Urine Nitrite NEGATIVE Urine Bilirubin NEGATIVE Urine Urobilinogen 0.2 E.U./dL Urine Leukocyte Esterase NEGATIVE Urine Microscopic RBC 0-2 Urine Microscopic WBC NONE SEEN Urine Squamous Epithelial Cells RARE Urine Hemoglobin TRACE Urine Glucose NEGATIVE Urine Total Protein NEGATIVE White Blood Count 16.8 H Red Blood Count 3.57 L Hemoglobin 11.1 L Hematocrit 32.9 L Mean Corpuscular Volume 92.2 Mean Corpuscular Hemoglobin 31.1 Mean Corpuscular Hemoglobin Concent 33.7 Red Cell Distribution Width 13.3 Platelet Count 292 Mean Platelet Volume 9.3 Neutrophils % 83.9 H Lymphocytes % 8.8 L Monocytes % 5.5 Eosinophils % 0.7 Basophils % 0.2 Nucleated Red Blood Cells % 0.0 Neutrophils # 14.1 H Lymphocytes # 1.5 Monocytes # 0.9 Eosinophils # 0.1 Basophils # 0.0 Nucleated Red Blood Cells # 0.0 Sodium Level 139 Potassium Level 3.8 Chloride Level 106 Carbon Dioxide Level 25 Anion Gap 12 Blood Urea Nitrogen 9 Creatinine 0.73 Glucose Level 103 Calcium Level 8.5 Total Bilirubin 0.3 Direct Bilirubin 0.00 Indirect Bilirubin 0.3 Aspartate Amino Transf (AST/SGOT) 28 Alanine Aminotransferase (ALT/SGPT) 26 Alkaline Phosphatase 96 Total Protein 6.5 Albumin 3.2 L Globulin 3.30 H Albumin/Globulin Ratio 0.96 Medications Medications Current Medications Morphine Sulfate (morphine) 2 mg Q2H PRN IV PAIN LEVEL 6-10 Last administered on 08/28/16 16:32; Admin Dose 2 MG; Start 08/24/16 at 14:00 Acetaminophen/ Hydrocodone Bitart 1 tab 1 tab Q6H PRN PO PAIN LEVEL 6-10 Last administered on 08/30/16 21:23; Admin Dose 1 TAB; Start 08/24/16 at 14:00 Sodium Chloride (NS) 1,000 ml @ 100 mls/hr Q10H IV Last administered on 02:06; Admin Dose 100 MLS/HR; Start 08/24/16 at 13:58 Gabapentin (Neurontin) 600 mg TID PO Last administered on 09/03/16 12:25; Admin Dose 600 MG; Start 08/24/16 at 21:00 Mirtazapine (Remeron) 15 mg HS PO Last administered on 09/02/16 21:12; Admin Dose 15 MG; Start 08/24/16 at 21:00 Ranitidine HCl (Zantac) 150 mg BID PO Last administered on 09/03/16 09:02; Admin Dose 150 MG; Start 08/24/16 at 21:00 Vancomycin HCl (Vancomycin Oral Syringe) 250 mg Q6 PO Last administered on 09/03 12:25; Admin Dose 250 MG; Start 08/30/16 at 00:00 Acetaminophen 650 mg 650 mg Q6H PRN PO PAIN AND OR ELEVATED TEMP Last administered on 09/02/16 21:13; Admin Dose 650 MG; Start 08/29/16 at 21:00 Metronidazole 100 ml @ 100 mls/hr Q8 IVPB Last administered on 09/03/16 06:26 ; Admin Dose 100 MLS/HR; Start 08/31/16 at 21:00 Meropenem 100 ml @ 200 mls/hr Q8 IVPB Last administered on 09/03/16 05:37; Admin Dose 200 MLS/HR; Start 08/31/16 at 22:00 Caspofungin 70 mg/ Sodium Chloride 250 ml @ 250 mls/hr ONCE ONCE IVPB ; Start 09/03/16 at 14:00; Stop 09/03/16 at 14:59 Caspofungin/ Sodium Chloride (Cancidas/NS) 250 ml @ 250 mls/hr Q24H IVPB ; Start 09/04/16 at 14:00 Acyclovir (Zovirax) 400 mg TID PO ; Start 09/03/16 at 13:00; Stop 09/08/16 at 12 :59 REMY ASTORGA M.D. Sep 03, 2016 12:41
[2016-09-03] MEDS ORDERED: IOHEXOL 300MG/ML 150 ML BTL ONE (13:14)
[2016-09-03] MEDS ORDERED: SOD CHLORIDE 0.9% 100 ML ONE (13:14)
--- NOTE | 2016-09-03 13:28 | PN ---
Date/Time of Note Date/Time of Note DATE: 09/03/16 TIME: 13:27 Assessment/Plan VTE Prophylaxis VTE Prophylaxis Intervention: SCD's Lines/Catheters IV Catheter Type (from [facility]): Peripheral IV Urinary Cath still in place: No Assessment/Plan Chief Complaint/Hosp Course s/p lap gabi converted to open due to intrahepatic gallbladder had bile leak, cbd ok. ercp showed cbd stone Problems: Assessment/Plan with fever and and abdominal pain ct scan to evaluate c diff colitis status vs abcess/fluid collection Subjective 24 Hr Interval Summary Free Text/Dictation patient not in bed, down to radiology for CT scan to evaluate for fluid collection/abscess still with c diff colitis and fever and increase wbc Exam/Review of Systems Vital Signs Vitals Vital Signs Date Time Temp Pulse Resp B/P Pulse Ox O2 Delivery O2 Flow Rate FiO2 09/03/16 07:57 98.5 93 20 96/51 91 08/31/16 18:00 Room Air Intake and Output 09/02/16 09/02/16 09/03/16 15:00 23:00 07:00 Intake Total 100 ml 1800 ml 1380 ml Output Total 910 ml 805 ml Balance 100 ml 890 ml 575 ml Exam nonavailable Results Result Diagram: 09/03/16 0455 09/03/16 0455 Results 24 hrs Laboratory Tests Test 09/02/16 22:01 09/03/16 04:55 Urine Color LT. YELLOW Urine Clarity CLEAR Urine pH 7.0 Urine Specific [place] 1.015 Urine Ketones TRACE Urine Nitrite NEGATIVE Urine Bilirubin NEGATIVE Urine Urobilinogen 0.2 E.U./dL Urine Leukocyte Esterase NEGATIVE Urine Microscopic RBC 0-2 Urine Microscopic WBC NONE SEEN Urine Squamous Epithelial Cells RARE Urine Hemoglobin TRACE Urine Glucose NEGATIVE Urine Total Protein NEGATIVE White Blood Count 16.8 H Red Blood Count 3.57 L Hemoglobin 11.1 L Hematocrit 32.9 L Mean Corpuscular Volume 92.2 Mean Corpuscular Hemoglobin 31.1 Mean Corpuscular Hemoglobin Concent 33.7 Red Cell Distribution Width 13.3 Platelet Count 292 Mean Platelet Volume 9.3 Neutrophils % 83.9 H Lymphocytes % 8.8 L Monocytes % 5.5 Eosinophils % 0.7 Basophils % 0.2 Nucleated Red Blood Cells % 0.0 Neutrophils # 14.1 H Lymphocytes # 1.5 Monocytes # 0.9 Eosinophils # 0.1 Basophils # 0.0 Nucleated Red Blood Cells # 0.0 Sodium Level 139 Potassium Level 3.8 Chloride Level 106 Carbon Dioxide Level 25 Anion Gap 12 Blood Urea Nitrogen 9 Creatinine 0.73 Glucose Level 103 Calcium Level 8.5 Total Bilirubin 0.3 Direct Bilirubin 0.00 Indirect Bilirubin 0.3 Aspartate Amino Transf (AST/SGOT) 28 Alanine Aminotransferase (ALT/SGPT) 26 Alkaline Phosphatase 96 Total Protein 6.5 Albumin 3.2 L Globulin 3.30 H Albumin/Globulin Ratio 0.96 Medications Medications Current Medications Morphine Sulfate (morphine) 2 mg Q2H PRN IV PAIN LEVEL 6-10 Last administered on 08/28/16 16:32; Admin Dose 2 MG; Start 08/24/16 at 14:00 Acetaminophen/ Hydrocodone Bitart 1 tab 1 tab Q6H PRN PO PAIN LEVEL 6-10 Last administered on 08/30/16 21:23; Admin Dose 1 TAB; Start 08/24/16 at 14:00 Sodium Chloride (NS) 1,000 ml @ 100 mls/hr Q10H IV Last administered on 02:06; Admin Dose 100 MLS/HR; Start 08/24/16 at 13:58 Gabapentin (Neurontin) 600 mg TID PO Last administered on 09/03/16 12:25; Admin Dose 600 MG; Start 08/24/16 at 21:00 Mirtazapine (Remeron) 15 mg HS PO Last administered on 09/02/16 21:12; Admin Dose 15 MG; Start 08/24/16 at 21:00 Ranitidine HCl (Zantac) 150 mg BID PO Last administered on 09/03/16 09:02; Admin Dose 150 MG; Start 08/24/16 at 21:00 Vancomycin HCl (Vancomycin Oral Syringe) 250 mg Q6 PO Last administered on 09/03 12:25; Admin Dose 250 MG; Start 08/30/16 at 00:00 Acetaminophen 650 mg 650 mg Q6H PRN PO PAIN AND OR ELEVATED TEMP Last administered on 09/02/16 21:13; Admin Dose 650 MG; Start 08/29/16 at 21:00 Metronidazole 100 ml @ 100 mls/hr Q8 IVPB Last administered on 09/03/16 06:26 ; Admin Dose 100 MLS/HR; Start 08/31/16 at 21:00 Meropenem 100 ml @ 200 mls/hr Q8 IVPB Last administered on 09/03/16t 05:37; Admin Dose 200 MLS/HR; Start 08/31/16 at 22:00 Caspofungin 70 mg/ Sodium Chloride 250 ml @ 250 mls/hr ONCE ONCE IVPB ; Start 09/03/16 at 14:00; Stop 09/03/16 at 14:59 Caspofungin/ Sodium Chloride (Cancidas/NS) 250 ml @ 250 mls/hr Q24H IVPB ; Start 09/04/16 at 14:00 Acyclovir 400 mg 400 mg TID PO ; Start 09/03/16 at 13:00; Stop 09/08/16 at 12:59 Vancomycin HCl 2 gm/Sodium Chloride 500 ml @ 125 mls/hr ONCE IVPB ; Start 09/03 at 14:30; Stop 09/03/16 at 18:29 Vancomycin HCl/ Sodium Chloride (Vancocin/NS) 250 ml @ 83.333 mls/ hr Q12H IVPB ; Start 09/04/16 at 03:00 Allison MARIE Sep 03, 2016 13:28
[2016-09-03] MEDS ORDERED: CASPOFUNGIN 70 MG in SOD CHLORIDE 0.9% 250 ML IVPB ONE (14:00)
--- NOTE | 2016-09-03 14:00 | RADRPT ---
PROCEDURE: CT Abdomen and Pelvis with contrast. CLINICAL INDICATION: Fever, abdominal fluid collection TECHNIQUE: CT of the abdomen and pelvis was performed on a multi-detector scanner following the un complicated IV administration of 100 cc of Omnipaque-300. Coronal and sagittal images were reformat tiara from the axial data set. One or more of the following dose reduction techniques were used: auto mated exposure control, adjustment of the mA and/or kV according to patient size, use of iterative reconstruction technique. CTDI = 9.89 mGy. DLP = 663.17 mGy-cm. COMPARISON: None. FINDINGS: CT abdomen: There are mild left and small right pleural effusions, with associated bibasilar atelectasis. The h eart size is normal, without pericardial effusion. Gallbladder is surgically absent. 5.5 x 3 x 3 c m gas and fluid collection is seen within hepatic parenchyma adjacent to the gallbladder fossa, conc erning for hepatic abscess. Surgical drain tip is located within this collection. Liver demonstrat es scattered benign cysts as well. No enhancing hepatic mass is identified. Common bile duct stent is in place. Pneumobilia is noted. There is no intrahepatic biliary dilatation. Pancreas, spleen, adrenal glands and kidneys are unremarkable except for benign renal cysts. No uro lithiasis or obstructive uropathy is identified. The stomach is grossly unremarkable. There is no abdominal aortic aneurysm or dissection. There is no retroperitoneal lymphadenopathy. The jaya he patis region is clear. CT pelvis: No bowel obstruction or free intraperitoneal air is identified. The appendix is well visualized and normal. There is no diverticulosis, diverticulitis or colitis. Urinary bladder is grossly unremar kable. No pelvic mass, free fluid or lymphadenopathy is identified. Small bilateral fat containing inguinal hernias are noted. The surrounding osseous structures are remarkable for degenerative spondylosis of the spine. No ost eolytic or osteoblastic lesion is detected. The patient is status post L2 vertebrectomy and posterio r surgical fusion of L1-4. IMPRESSION: 1. Gallbladder is surgically absent. Common bile duct stent is in place. 2. Gas and fluid collection identified within hepatic parenchyma adjacent to the gallbladder fossa, measuring approximately 5.5 cm in maximal dimension, concerning for hepatic abscess. Surgical drai n tip is present within this collection. 3. There are mild left and small right pleural effusions, with associated bibasilar atelectasis. 4. Small bilateral fat containing inguinal hernias are noted without incarceration. 5. No mass or lymphadenopathy is seen. RPTAT: HH .Juanpablo Chacon MD, Date Time Electronically viewed and signed by .Juanpablo Chacon MD, on 09/03/2016 14:00 .R/
--- NOTE | 2016-09-03 14:02 | RADRPT ---
PROCEDURE: XR Chest. CLINICAL INDICATION: Dyspnea TECHNIQUE: Single frontal chest x-ray. COMPARISON: None. FINDINGS: Focally increased opacity is noted at the left lung base. No pneumothorax is identified. Cardiomed iastinal silhouette is within normal limits. The osseous structures are unremarkable. IMPRESSION: 1. Focally increased opacity is noted at the left lung base - considerations include atelectasis, m ild pleural effusion, and/or pneumonia. RPTAT: HH .Juanpablo Chacon MD, MD Date Time Electronically viewed and signed by .Juanpablo Chacon MD, on 09/03/2016 14:01 .R/
[2016-09-03] MEDS: ACYCLOVIR 400 MG TAB PO SCH ×2 (14:13→20:23)
[2016-09-03] MEDS ORDERED: VANCOMYCIN 2 GM in SOD CHLORIDE 0.9% 500 ML IVPB SCH (14:30)
--- NOTE | 2016-09-03 18:00 | PN ---
Date/Time of Note Date/Time of Note DATE: 09/03/16 TIME: 17:58 Assessment/Plan VTE Prophylaxis VTE Prophylaxis Intervention: SCD's Lines/Catheters IV [facility] Type (from [facility] Peripheral IV Urinary Cath still in place: No Assessment/Plan Chief Complaint/Hosp Course Patient spiked fever last night, borderline hypotension, denies any nausea vomiting. Assessment/Plan - Possible sepsis, continue broad-spectrum antibiotics Dr. Black is following in infection disease consultation. - C. difficile colitis, continue vancomycin. - Common bile duct stone. Dr. An is following in gastroenterology consultation, s/p ERCP, sphincterotomy, removal of common bile duct stone and placement of a CBD stent 05/29. - Symptomatic gallstones, status post status post laparoscopic converted to open cholecystectomy. Continue to follow-up surgical recommendation. Continue [place] and morphine as needed for pain. - Chronic lower back pain with history of lumbar burst fracture due to trauma, status post surgery. Further recommendations based on clinical course. Plan of care discussed with Dr. Anguiano. Problems: Exam/Review of Systems Vital Signs Vitals Vital Signs Date Time Temp Pulse Resp B/P Pulse Ox O2 Delivery O2 Flow Rate FiO2 09/03/16 07:57 98.5 93 20 96/51 91 08/31/16 18:00 Room Air Intake and Output 09/02/16 09/02/16 09/03/16 15:00 23:00 07:00 Intake Total 100 ml 1800 ml 1380 ml Output Total 910 ml 805 ml Balance 100 ml 890 ml 575 ml Exam Constitutional: alert Head: normocephalic Neck: supple Respiratory: clear to auscultation Cardiovascular: nl pulses Gastrointestinal: other (Status post surgery was ETTA drain), soft Extremities: normal pulses Results Result Diagram: 09/03/16 0455 09/03/16 0455 Results 24 hrs Laboratory Tests Test 09/02/16 22:01 09/03/16 04:55 Urine Color LT. YELLOW Urine Clarity CLEAR Urine pH 7.0 Urine Specific [place] 1.015 Urine Ketones TRACE Urine Nitrite NEGATIVE Urine Bilirubin NEGATIVE Urine Urobilinogen 0.2 E.U./dL Urine Leukocyte Esterase NEGATIVE Urine Microscopic RBC 0-2 Urine Microscopic WBC NONE SEEN Urine Squamous Epithelial Cells RARE Urine Hemoglobin TRACE Urine Glucose NEGATIVE Urine Total Protein NEGATIVE White Blood Count 16.8 H Red Blood Count 3.57 L Hemoglobin 11.1 L Hematocrit 32.9 L Mean Corpuscular Volume 92.2 Mean Corpuscular Hemoglobin 31.1 Mean Corpuscular Hemoglobin Concent 33.7 Red Cell Distribution Width 13.3 Platelet Count 292 Mean Platelet Volume 9.3 Neutrophils % 83.9 H Lymphocytes % 8.8 L Monocytes % 5.5 Eosinophils % 0.7 Basophils % 0.2 Nucleated Red Blood Cells % 0.0 Neutrophils # 14.1 H Lymphocytes # 1.5 Monocytes # 0.9 Eosinophils # 0.1 Basophils # 0.0 Nucleated Red Blood Cells # 0.0 Sodium Level 139 Potassium Level 3.8 Chloride Level 106 Carbon Dioxide Level 25 Anion Gap 12 Blood Urea Nitrogen 9 Creatinine 0.73 Glucose Level 103 Calcium Level 8.5 Total Bilirubin 0.3 Direct Bilirubin 0.00 Indirect Bilirubin 0.3 Aspartate Amino Transf (AST/SGOT) 28 Alanine Aminotransferase (ALT/SGPT) 26 Alkaline Phosphatase 96 Total Protein 6.5 Albumin 3.2 L Globulin 3.30 H Albumin/Globulin Ratio 0.96 Medications Medications Current Medications Morphine Sulfate (morphine) 2 mg Q2H PRN IV PAIN LEVEL 6-10 Last administered on 08/28/16 16:32; Admin Dose 2 MG; Start 08/24/16 at 14:00 Acetaminophen/ Hydrocodone Bitart 1 tab 1 tab Q6H PRN PO PAIN LEVEL 6-10 Last administered on 08/30/16 21:23; Admin Dose 1 TAB; Start 08/24/16 at 14:00 Sodium Chloride (NS) 1,000 ml @ 100 mls/hr Q10H IV Last administered on 02:06; Admin Dose 100 MLS/HR; Start 08/24/16 at 13:58 Gabapentin (Neurontin) 600 mg TID PO Last administered on 09/03/16 12:25; Admin Dose 600 MG; Start 08/24/16 at 21:00 Mirtazapine (Remeron) 15 mg HS PO Last administered on 09/02/16 21:12; Admin Dose 15 MG; Start 08/24/16 at 21:00 Ranitidine HCl (Zantac) 150 mg BID PO Last administered on 09/03/16 09:02; Admin Dose 150 MG; Start 08/24/16 at 21:00 Vancomycin HCl (Vancomycin Oral Syringe) 250 mg Q6 PO Last administered on 09/03 17:48; Admin Dose 250 MG; Start 08/30/16 at 00:00 Acetaminophen 650 mg 650 mg Q6H PRN PO PAIN AND OR ELEVATED TEMP Last administered on 09/02/16 21:13; Admin Dose 650 MG; Start 08/29/16 at 21:00 Metronidazole 100 ml @ 100 mls/hr Q8 IVPB Last administered on 09/03/16 14:13 ; Admin Dose 100 MLS/HR; Start 08/31/16 at 21:00 Meropenem 100 ml @ 200 mls/hr Q8 IVPB Last administered on 09/03/16 15:25; Admin Dose 200 MLS/HR; Start 08/31/16 at 22:00 Caspofungin/ Sodium Chloride (Cancidas/NS) 250 ml @ 250 mls/hr Q24H IVPB ; Start 09/04/16 at 14:00 Acyclovir 400 mg 400 mg TID PO Last administered on 09/03/16 14:13; Admin Dose 400 MG; Start 09/03/16 at 13:00; Stop 09/08/16 at 12:59 Vancomycin HCl 2 gm/Sodium Chloride 500 ml @ 125 mls/hr ONCE IVPB Last administered on 09/03/16 17:48; Admin Dose 125 MLS/HR; Start 09/03/16 at 14:30 ; Stop 09/03/16 at 18:29 Vancomycin HCl/ Sodium Chloride (Vancocin/NS) 250 ml @ 83.333 mls/ hr Q12H IVPB ; Start 09/04/16 at 03:00 FELIBERTO SANTOS Sep 03, 2016 18:00
[2016-09-03 20:00] VITALS: BP 98/57; RESP 18
[2016-09-03] MEDS: ACETAMINOPHEN 325 MG TAB PO PRN (20:23)
[2016-09-03] MEDS: MIRTAZAPINE 15 MG TAB PO SCH (20:23)
[2016-09-04] MEDS: MEROPENEM 1 GM/100 ML (PMX) 100 ML IVPB SCH ×4 (00:12→22:35)
[2016-09-04] MEDS: VANCOMYCIN HCL 250 MG/5ML POSYG PO SCH ×4 (00:13→18:11)
[2016-09-04] MEDS: SOD CHLORIDE 0.9% 1,000 ML IV SCH ×4 (00:13→23:27)
[2016-09-04] MEDS: VANCOMYCIN 1.5 GM in SOD CHLORIDE 0.9% 250 ML IVPB SCH ×2 (04:24→18:11)
[2016-09-04] MEDS: metroNIDAZOLE 500 MG/NS (PMX) 100 ML IVPB SCH ×3 (06:13→23:27)
[2016-09-04 06:26] LABS: ADD SCAN DIFF NO
[2016-09-04 06:29] LABS: BASOPHILS % 0.3 % (0.0-2.0); EOSINOPHILS # 0.3 10^3/ul (0.0-0.5); EOSINOPHILS % 2.4 % (0.0-7.0); HEMATOCRIT 33.5 % (42.0-52.0); HEMOGLOBIN 11.2 g/dl (14.0-18.0); LYMPHOCYTES # 1.4 10^3/ul (0.8-2.9); LYMPHOCYTES % 12.2 % (15.0-51.0); MEAN CORPUSCULAR HEMOGLOBIN 30.5 pg (29.0-33.0); MEAN CORPUSCULAR HGB CONC 33.4 g/dl (32.0-37.0); MEAN CORPUSCULAR VOLUME 91.3 fl (82.0-101.0); MEAN PLATELET VOLUME 9.3 fl (7.4-10.4); MONOCYTE # 0.6 10^3/ul (0.3-0.9); MONOCYTES % 4.8 % (0.0-11.0); NEUTROPHIL # 9.2 10^3/ul (1.6-7.5); NEUTROPHILS % 79.7 % (39.0-77.0); PLATELET COUNT 339 10^3/UL (140-415); RED BLOOD COUNT 3.67 10^6/ul (4.70-6.10); RED CELL DISTRIBUTION WIDTH 13.4 % (11.5-14.5); WHITE BLOOD COUNT 11.6 10^3/ul (4.8-10.8)
[2016-09-04 07:17] LABS: CALCIUM 8.7 mg/dl (8.4-10.2); CREATININE 0.64 mg/dl (0.61-1.24); POTASSIUM 3.9 mmol/L (3.5-5.1)
[2016-09-04 07:58] VITALS: BP 110/72; RESP 20
[2016-09-04] MEDS: GABAPENTIN 300 MG CAP PO SCH ×3 (09:11→21:29)
[2016-09-04] MEDS: ACYCLOVIR 400 MG TAB PO SCH ×3 (09:11→21:28)
[2016-09-04] MEDS: RANITIDINE 150 MG TAB PO SCH ×2 (09:11→21:29)
--- NOTE | 2016-09-04 11:33 | CONS ---
Date/Time of Note Date/Time of Note DATE: 09/04/16 TIME: 11:26 Assessment/Plan Assessment/Plan Chief Complaint/Hosp Course assessment/impression - sepsis, possibly due to hepatic abscess and possible HCAP - C diff colitis - probable hepatic abscess: 5.5 x 3 x 3 cm gas and fluid collection within hepatic parenchyma adjacent to the gallbladder fossa - possible HCAP (CXR 09/03/2016) - a high risk for invasive candidiasis, i.e. presence of thrush, intra- abdominal surgeries, receipt of broad spectrum antibacterial medications - h/o symptomatic gallstones s/p lap cholecystectomy converted to open, and placement of a drain on 08/24/2016. Pathologist's review showed chronic cholecystitis with extensive denudation of the mucosa, no malignancy. - h/o possible cholangitis, s/p ERCP, sphincterotomy, removal of common bile duct stone and placement of a CBD stent on 08/28/2016. Pathologist's review showed mild chronic inflammation, no malignancy - labial herpes infection - thrush - chronic lower back pain with history of lumbar burst fracture due to trauma, s /p surgery recommendations - pending results: blood and urine cultures, culture of fluid in ETTA drain - ordered abdominal DANYELL. I recommend drainage of the hepatic abscess either by CT or DANYELL guidance - continue meropenem (08/31/2016-), IV vancomycin (09/03/2016-), and empiric caspofungin (09/03/2016-) for hepatic abscess and HCAP - continue PO vancomycin (08/30/2016-) and IV metronidazole (08/31/2016-) for C diff colitis - complete acyclovir (09/03/2016-) x 5 days for herpes labialis - I will adjust his antibiotics based on the final culture results management d/w Pt and his RN. Informed [employer] Meme and Dr. Anguiano Problems: Consultation Date/Type/Reason Admit Date/Time Aug 26, 2016 at 12:13 Initial Consult Date 09/03/16 Type of Consultation: ID Referring Provider: GAGANDEEP ANGUIANO MD 24 HR Interval Summary Constitutional: other (low energy), poor po Detailed Summary Eyes: no complaints ENT: no complaints Respiratory: no complaints Cardiovascular: no complaints Gastrointestinal: diarrhea, passing stool, No nausea, No pain Genitourinary: no complaints Musculoskeletal: no complaints Skin: no complaints Neurologic: no complaints Exam/Review of Systems Vital Signs Vitals Vital Signs Date Time Temp Pulse Resp B/P Pulse Ox O2 Delivery O2 Flow Rate FiO2 09/04/16 07:58 98.6 83 20 110/72 93 08/31/16 18:00 Room Air Intake and Output 09/03/16 09/03/16 09/04/16 15:00 23:00 07:00 Intake Total 100 ml 2030 ml 1730 ml Output Total 800 ml 2110 ml Balance 100 ml 1230 ml -380 ml Exam Constitutional: alert, frail, oriented Psych: no complaints Head: atraumatic, normocephalic Eyes: nl conjunctiva, nl lids ENMT: nl external ears & nose, nl nasal mucosa & septum Respiratory: clear to auscultation, normal air movement Cardiovascular: nl pulses, regular rate and rhythm Gastrointestinal: non-tender, other (ETTA drain in place), soft, surgical scars, No distended Musculoskeletal: nl extremities to inspection Extremities: No edema Neurological: lethargic, No confused Skin: nl turgor Results Result Diagram: 09/04/16 0555 09/04/16 0555 Results 24 hrs Laboratory Tests Test 09/04/16 05:55 White Blood Count 11.6 #H Red Blood Count 3.67 L Hemoglobin 11.2 L Hematocrit 33.5 L Mean Corpuscular Volume 91.3 Mean Corpuscular Hemoglobin 30.5 Mean Corpuscular Hemoglobin Concent 33.4 Red Cell Distribution Width 13.4 Platelet Count 339 Mean Platelet Volume 9.3 Neutrophils % 79.7 H Lymphocytes % 12.2 L Monocytes % 4.8 Eosinophils % 2.4 Basophils % 0.3 Nucleated Red Blood Cells % 0.0 Neutrophils # 9.2 H Lymphocytes # 1.4 Monocytes # 0.6 Eosinophils # 0.3 Basophils # 0.0 Nucleated Red Blood Cells # 0.0 Sodium Level 139 Potassium Level 3.9 Chloride Level 105 Carbon Dioxide Level 25 Anion Gap 13 Blood Urea Nitrogen 10 Creatinine 0.64 Glucose Level 99 Calcium Level 8.7 Medications Medications Current Medications Morphine Sulfate (morphine) 2 mg Q2H PRN IV PAIN LEVEL 6-10 Last administered on 08/28/16t 16:32; Admin Dose 2 MG; Start 08/24/16 at 14:00 Acetaminophen/ Hydrocodone Bitart 1 tab 1 tab Q6H PRN PO PAIN LEVEL 6-10 Last administered on 08/30/16 21:23; Admin Dose 1 TAB; Start 08/24/16 at 14:00 Sodium Chloride (NS) 1,000 ml @ 100 mls/hr Q10H IV Last administered on 00:13; Admin Dose 100 MLS/HR; Start 08/24/16 at 13:58 Gabapentin (Neurontin) 600 mg TID PO Last administered on 09/04/16 09:11; Admin Dose 600 MG; Start 08/24/16 at 21:00 Mirtazapine (Remeron) 15 mg HS PO Last administered on 09/03/16 20:23; Admin Dose 15 MG; Start 08/24/16 at 21:00 Ranitidine HCl (Zantac) 150 mg BID PO Last administered on 09/04/16 09:11; Admin Dose 150 MG; Start 08/24/16 at 21:00 Vancomycin HCl (Vancomycin Oral Syringe) 250 mg Q6 PO Last administered on 09/04 06:14; Admin Dose 250 MG; Start 08/30/16 at 00:00 Acetaminophen 650 mg 650 mg Q6H PRN PO PAIN AND OR ELEVATED TEMP Last administered on 09/03/16 20:23; Admin Dose 650 MG; Start 08/29/16 at 21:00 Metronidazole 100 ml @ 100 mls/hr Q8 IVPB Last administered on 09/04/16 06:13 ; Admin Dose 100 MLS/HR; Start 08/31/16 at 21:00 Meropenem 100 ml @ 200 mls/hr Q8 IVPB Last administered on 09/04/16 07:22; Admin Dose 200 MLS/HR; Start 08/31/16 at 22:00 Caspofungin/ Sodium Chloride (Cancidas/NS) 250 ml @ 250 mls/hr Q24H IVPB ; Start 09/04/16 at 14:00 Acyclovir 400 mg 400 mg TID PO Last administered on 09/04/16 09:11; Admin Dose 400 MG; Start 09/03/16 at 13:00; Stop 09/08/16 at 12:59 Vancomycin HCl/ Sodium Chloride (Vancocin/NS) 250 ml @ 83.333 mls/ hr Q12H IVPB Last administered on 09/04/16 04:24; Admin Dose 83.333 MLS/HR; Start at 03:00 REMY ASTORGA M.D. Sep 04, 2016 11:33
[2016-09-04] MEDS: CASPOFUNGIN 50 MG in SOD CHLORIDE 0.9% 250 ML IVPB SCH ×2 (16:27→16:30)
--- NOTE | 2016-09-04 16:34 | PN ---
Date/Time of Note Date/Time of Note DATE: 09/04/16 TIME: 16:34 Assessment/Plan VTE Prophylaxis VTE Prophylaxis Intervention: SCD's Lines/Catheters IV Catheter Type (from Nrs): Peripheral IV Urinary Cath still in place: No Assessment/Plan Chief Complaint/Hosp Course s/p lap gabi converted to open due to intrahepatic gallbladder had bile leak, cbd ok. ercp showed cbd stone Problems: Assessment/Plan will get perc drainage of fluid collection Subjective 24 Hr Interval Summary Free Text/Dictation persistent fevers, ct scan shows fluid collection Exam/Review of Systems Vital Signs Vitals Vital Signs Date Time Temp Pulse Resp B/P Pulse Ox O2 Delivery O2 Flow Rate FiO2 09/04/16 07:58 98.6 83 20 110/72 93 08/31/16 18:00 Room Air Intake and Output 09/03/16 09/03/16 09/04/16 15:00 23:00 07:00 Intake Total 100 ml 2030 ml 1730 ml Output Total 800 ml 2110 ml Balance 100 ml 1230 ml -380 ml Exam nonspecific Results Result Diagram: 09/04/16 0555 09/04/16 0555 Results 24 hrs Laboratory Tests Test 09/04/16 05:55 White Blood Count 11.6 #H Red Blood Count 3.67 L Hemoglobin 11.2 L Hematocrit 33.5 L Mean Corpuscular Volume 91.3 Mean Corpuscular Hemoglobin 30.5 Mean Corpuscular Hemoglobin Concent 33.4 Red Cell Distribution Width 13.4 Platelet Count 339 Mean Platelet Volume 9.3 Neutrophils % 79.7 H Lymphocytes % 12.2 L Monocytes % 4.8 Eosinophils % 2.4 Basophils % 0.3 Nucleated Red Blood Cells % 0.0 Neutrophils # 9.2 H Lymphocytes # 1.4 Monocytes # 0.6 Eosinophils # 0.3 Basophils # 0.0 Nucleated Red Blood Cells # 0.0 Sodium Level 139 Potassium Level 3.9 Chloride Level 105 Carbon Dioxide Level 25 Anion Gap 13 Blood Urea Nitrogen 10 Creatinine 0.64 Glucose Level 99 Calcium Level 8.7 Medications Medications Current Medications Morphine Sulfate (morphine) 2 mg Q2H PRN IV PAIN LEVEL 6-10 Last administered on 08/28/16t 16:32; Admin Dose 2 MG; Start 08/24/16 at 14:00 Acetaminophen/ Hydrocodone Bitart 1 tab 1 tab Q6H PRN PO PAIN LEVEL 6-10 Last administered on 08/30/16 21:23; Admin Dose 1 TAB; Start 08/24/16 at 14:00 Sodium Chloride (NS) 1,000 ml @ 100 mls/hr Q10H IV Last administered on 00:13; Admin Dose 100 MLS/HR; Start 08/24/16 at 13:58 Gabapentin (Neurontin) 600 mg TID PO Last administered on 09/04/16 13:04; Admin Dose 600 MG; Start 08/24/16 at 21:00 Mirtazapine (Remeron) 15 mg HS PO Last administered on 09/03/16 20:23; Admin Dose 15 MG; Start 08/24/16 at 21:00 Ranitidine HCl (Zantac) 150 mg BID PO Last administered on 09/04/16 09:11; Admin Dose 150 MG; Start 08/24/16 at 21:00 Vancomycin HCl (Vancomycin Oral Syringe) 250 mg Q6 PO Last administered on 09/04 13:04; Admin Dose 250 MG; Start 08/30/16 at 00:00 Acetaminophen 650 mg 650 mg Q6H PRN PO PAIN AND OR ELEVATED TEMP Last administered on 09/03/16 20:23; Admin Dose 650 MG; Start 08/29/16 at 21:00 Metronidazole 100 ml @ 100 mls/hr Q8 IVPB Last administered on 09/04/16 14:27 ; Admin Dose 100 MLS/HR; Start 08/31/16 at 21:00 Meropenem 100 ml @ 200 mls/hr Q8 IVPB Last administered on 09/04/16 14:27; Admin Dose 200 MLS/HR; Start 08/31/16 at 22:00 Caspofungin/ Sodium Chloride (Cancidas/NS) 250 ml @ 250 mls/hr Q24H IVPB Last administered on 09/04/16 16:30; Admin Dose 250 MLS/HR; Start 09/04/16 at 14:00 Acyclovir 400 mg 400 mg TID PO Last administered on 09/04/16 13:04; Admin Dose 400 MG; Start 09/03/16 at 13:00; Stop 09/08/16 at 12:59 Vancomycin HCl/ Sodium Chloride (Vancocin/NS) 250 ml @ 83.333 mls/ hr Q12H IVPB Last administered on 09/04/16t 04:24; Admin Dose 83.333 MLS/HR; Start at 03:00 Miscellaneous Information (*Rx Drug Level Order Reminder*) VANCOMYCIN TROUGH ON @ 4,:00 ONCE ONCE XX ; Start 09/05/16 at 14:00; Stop 09/05/16 at 14:01 Allison MARIE Sep 04, 2016 16:34
--- NOTE | 2016-09-04 17:58 | RADRPT ---
PROCEDURE: US Abdomen and Retroperitoneum. CLINICAL INDICATION: Abdominal pain. History of cholecystectomy. TECHNIQUE: Multiple real-time longitudinal and transverse images were acquired of the patient's ab domen and retroperitoneum utilizing a curved array transducer. COMPARISON: CT scan of the abdomen and pelvis dated 09/03/2016 which demonstrated gas and fluid in the gallbladder fossa. FINDINGS: The liver is normal in size and normal in echogenicity. The liver has a normal smooth surface. Ther e is no focal hepatic lesion. Color Doppler and pulsed Doppler sonography demonstrate normal antegra de flow in the portal vein. Shadowing is present in the gallbladder fossa region consistent with the gas and fluid collection as seen on prior CT scan. The bile ducts are normal with the common bile duct measuring 4.9 mm in diameter. The spleen is normal in size. There is no focal splenic lesion. The pancreas is not visualized due to overlying bowel gas. There is no free fluid. The right kidney measures 12.3 cm and the left kidney measures 13.0 cm. There is no solid renal mass. There is a benign cyst superiorly in the left kidney measuring 2.6 x 1.6 x 2.0 cm. There is no hydronephrosis or renal calculus. The abdominal aorta is not dilated. The inferior vena cava is unremarkable. IMPRESSION: 1. Shadowing in the gallbladder fossa region consistent with the gas and fluid collection as seen o n prior CT scan. 2. Pancreas not visualized. 3. Benign left renal cyst. 4. Otherwise unremarkable study. RPTAT: QQ .Emmett Cardoso MD, Date Time Electronically viewed and signed by .Emmett Cardoso MD, on 09/04/2016 17:58 .R/
--- NOTE | 2016-09-04 18:12 | PN ---
Date/Time of Note Date/Time of Note DATE: 09/04/16 TIME: 18:08 Assessment/Plan VTE Prophylaxis VTE Prophylaxis Intervention: SCD's Lines/Catheters IV Catheter Type (from [facility]): Peripheral IV Central line still needed: Yes Urinary Cath still in place: No Assessment/Plan Chief Complaint/Hosp Course Patient spiked fever last night 2 days afebrile, complains of abdominal pain denies nausea vomiting Assessment/Plan - Sepsis most likely due to hepatic abscess versus pneumonia. Dr. Black is following in infection disease consultation. Continue antibiotics per ID. - C. difficile colitis, continue vancomycin. - Common bile duct stone. Dr. An is following in gastroenterology consultation, s/p ERCP, sphincterotomy, removal of common bile duct stone and placement of a CBD stent 05/29. - Symptomatic gallstones, status post status post laparoscopic converted to open cholecystectomy. Continue to follow-up surgical recommendation. Continue [place] and morphine as needed for pain. - Chronic lower back pain with history of lumbar burst fracture due to trauma, status post surgery. Further recommendations based on clinical course. Plan of care discussed with Dr. Anguiano. Problems: Exam/Review of Systems Vital Signs Vitals Vital Signs Date Time Temp Pulse Resp B/P Pulse Ox O2 Delivery O2 Flow Rate FiO2 09/04/16 07:58 98.6 83 20 110/72 93 08/31/16 18:00 Room Air Intake and Output 09/03/16 09/03/16 09/04/16 15:00 23:00 07:00 Intake Total 100 ml 2030 ml 1730 ml Output Total 800 ml 2110 ml Balance 100 ml 1230 ml -380 ml Exam Constitutional: alert Head: normocephalic Neck: supple Respiratory: clear to auscultation Cardiovascular: nl pulses Gastrointestinal: other (Status post surgery was ETTA drain), soft Extremities: normal pulses Results Result Diagram: 09/04/16 0555 09/04/16 0555 Results 24 hrs Laboratory Tests Test 09/04/16 05:55 White Blood Count 11.6 #H Red Blood Count 3.67 L Hemoglobin 11.2 L Hematocrit 33.5 L Mean Corpuscular Volume 91.3 Mean Corpuscular Hemoglobin 30.5 Mean Corpuscular Hemoglobin Concent 33.4 Red Cell Distribution Width 13.4 Platelet Count 339 Mean Platelet Volume 9.3 Neutrophils % 79.7 H Lymphocytes % 12.2 L Monocytes % 4.8 Eosinophils % 2.4 Basophils % 0.3 Nucleated Red Blood Cells % 0.0 Neutrophils # 9.2 H Lymphocytes # 1.4 Monocytes # 0.6 Eosinophils # 0.3 Basophils # 0.0 Nucleated Red Blood Cells # 0.0 Sodium Level 139 Potassium Level 3.9 Chloride Level 105 Carbon Dioxide Level 25 Anion Gap 13 Blood Urea Nitrogen 10 Creatinine 0.64 Glucose Level 99 Calcium Level 8.7 Medications Medications Current Medications Morphine Sulfate (morphine) 2 mg Q2H PRN IV PAIN LEVEL 6-10 Last administered on 08/28/16 16:32; Admin Dose 2 MG; Start 08/24/16 at 14:00 Acetaminophen/ Hydrocodone Bitart 1 tab 1 tab Q6H PRN PO PAIN LEVEL 6-10 Last administered on 08/30/16 21:23; Admin Dose 1 TAB; Start 08/24/16 at 14:00 Sodium Chloride (NS) 1,000 ml @ 100 mls/hr Q10H IV Last administered on 00:13; Admin Dose 100 MLS/HR; Start 08/24/16 at 13:58 Gabapentin (Neurontin) 600 mg TID PO Last administered on 09/04/16 13:04; Admin Dose 600 MG; Start 08/24/16 at 21:00 Mirtazapine (Remeron) 15 mg HS PO Last administered on 09/03/16 20:23; Admin Dose 15 MG; Start 08/24/16 at 21:00 Ranitidine HCl (Zantac) 150 mg BID PO Last administered on 09/04/16 09:11; Admin Dose 150 MG; Start 08/24/16 at 21:00 Vancomycin HCl (Vancomycin Oral Syringe) 250 mg Q6 PO Last administered on 09/04 13:04; Admin Dose 250 MG; Start 08/30/16 at 00:00 Acetaminophen 650 mg 650 mg Q6H PRN PO PAIN AND OR ELEVATED TEMP Last administered on 09/03/16 20:23; Admin Dose 650 MG; Start 08/29/16 at 21:00 Metronidazole 100 ml @ 100 mls/hr Q8 IVPB Last administered on 09/04/16 14:27 ; Admin Dose 100 MLS/HR; Start 08/31/16 at 21:00 Meropenem 100 ml @ 200 mls/hr Q8 IVPB Last administered on 09/04/16 14:27; Admin Dose 200 MLS/HR; Start 08/31/16 at 22:00 Caspofungin/ Sodium Chloride (Cancidas/NS) 250 ml @ 250 mls/hr Q24H IVPB Last administered on 09/04/16 16:30; Admin Dose 250 MLS/HR; Start 09/04/16 at 14:00 Acyclovir 400 mg 400 mg TID PO Last administered on 09/04/16 13:04; Admin Dose 400 MG; Start 09/03/16 at 13:00; Stop 09/08/16 at 12:59 Vancomycin HCl/ Sodium Chloride (Vancocin/NS) 250 ml @ 83.333 mls/ hr Q12H IVPB Last administered on 09/04/16 04:24; Admin Dose 83.333 MLS/HR; Start at 03:00 Miscellaneous Information (*Rx Drug Level Order Reminder*) VANCOMYCIN TROUGH ON @ 4,:00 ONCE ONCE XX ; Start 09/05/16 at 14:00; Stop 09/05/16 at 14:01 FELIBERTO SANTOS Sep 04, 2016 18:12
[2016-09-04 19:45] VITALS: BP 97/54; RESP 20
[2016-09-04] MEDS: MIRTAZAPINE 15 MG TAB PO SCH (21:28)
[2016-09-04] MEDS: ACETAMINOPHEN 325 MG TAB PO PRN (22:35)
[2016-09-05] MEDS: VANCOMYCIN HCL 250 MG/5ML POSYG PO SCH ×4 (00:22→17:53)
[2016-09-05] MEDS: VANCOMYCIN 1.5 GM in SOD CHLORIDE 0.9% 250 ML IVPB SCH (04:03)
[2016-09-05] MEDS: metroNIDAZOLE 500 MG/NS (PMX) 100 ML IVPB SCH ×3 (05:58→21:26)
[2016-09-05] MEDS: SOD CHLORIDE 0.9% 1,000 ML IV SCH ×2 (05:58→17:53)
[2016-09-05] MEDS: MEROPENEM 1 GM/100 ML (PMX) 100 ML IVPB SCH (05:59)
[2016-09-05 06:03] LABS: ADD SCAN DIFF NO
[2016-09-05 06:18] LABS: BASOPHILS % 0.3 % (0.0-2.0); EOSINOPHILS # 0.3 10^3/ul (0.0-0.5); EOSINOPHILS % 2.7 % (0.0-7.0); HEMATOCRIT 34.8 % (42.0-52.0); HEMOGLOBIN 11.6 g/dl (14.0-18.0); LYMPHOCYTES # 1.3 10^3/ul (0.8-2.9); LYMPHOCYTES % 12.2 % (15.0-51.0); MEAN CORPUSCULAR HEMOGLOBIN 30.5 pg (29.0-33.0); MEAN CORPUSCULAR HGB CONC 33.3 g/dl (32.0-37.0); MEAN CORPUSCULAR VOLUME 91.6 fl (82.0-101.0); MEAN PLATELET VOLUME 9.3 fl (7.4-10.4); MONOCYTE # 0.5 10^3/ul (0.3-0.9); MONOCYTES % 4.7 % (0.0-11.0); NEUTROPHIL # 8.6 10^3/ul (1.6-7.5); NEUTROPHILS % 79.5 % (39.0-77.0); PLATELET COUNT 384 10^3/UL (140-415); RED CELL DISTRIBUTION WIDTH 13.6 % (11.5-14.5); WHITE BLOOD COUNT 10.8 10^3/ul (4.8-10.8)
[2016-09-05 06:37] LABS: CALCIUM 8.5 mg/dl (8.4-10.2); CREATININE 0.67 mg/dl (0.61-1.24); POTASSIUM 3.9 mmol/L (3.5-5.1)
[2016-09-05 07:42] VITALS: BP 99/55; RESP 18
--- NOTE | 2016-09-05 08:17 | PN ---
Date/Time of Note Date/Time of Note DATE: 09/05/16 TIME: 08:16 Assessment/Plan VTE Prophylaxis VTE Prophylaxis Intervention: SCD's Lines/Catheters IV [facility]atheter Type (from [facility]): Saline Lock Urinary Cath still in place: No Assessment/Plan Chief Complaint/Hosp Course s/p lap gabi converted to open due to intrahepatic gallbladder had bile leak, cbd ok. ercp showed cbd stone Problems: Assessment/Plan continue current care Subjective 24 Hr Interval Summary Free Text/Dictation leukocytosis resolved, only low grade fevers, diarrhea resolving Exam/Review of Systems Vital Signs Vitals Vital Signs Date Time Temp Pulse Resp B/P Pulse Ox O2 Delivery O2 Flow Rate FiO2 09/05/16 07:42 98.3 76 18 99/55 92 Intake and Output 09/04/16 09/04/16 09/05/16 15:00 23:00 07:00 Intake Total 200 ml 2200 ml 1580 ml Output Total 10 ml 2150 ml Balance 200 ml 2190 ml -570 ml Exam c/d/i Results Result Diagram: 09/05/16 0525 09/05/16 0525 Results 24 hrs Laboratory Tests Test 09/05/16 05:25 White Blood Count 10.8 Red Blood Count 3.80 L Hemoglobin 11.6 L Hematocrit 34.8 L Mean Corpuscular Volume 91.6 Mean Corpuscular Hemoglobin 30.5 Mean Corpuscular Hemoglobin Concent 33.3 Red Cell Distribution Width 13.6 Platelet Count 384 Mean Platelet Volume 9.3 Neutrophils % 79.5 H Lymphocytes % 12.2 L Monocytes % 4.7 Eosinophils % 2.7 Basophils % 0.3 Nucleated Red Blood Cells % 0.0 Neutrophils # 8.6 H Lymphocytes # 1.3 Monocytes # 0.5 Eosinophils # 0.3 Basophils # 0.0 Nucleated Red Blood Cells # 0.0 Sodium Level 138 Potassium Level 3.9 Chloride Level 103 Carbon Dioxide Level 28 Anion Gap 11 Blood Urea Nitrogen 11 Creatinine 0.67 Glucose Level 101 Calcium Level 8.5 Medications Medications Current Medications Morphine Sulfate (morphine) 2 mg Q2H PRN IV PAIN LEVEL 6-10 Last administered on 08/28/16 16:32; Admin Dose 2 MG; Start 08/24/16 at 14:00 Acetaminophen/ Hydrocodone Bitart 1 tab 1 tab Q6H PRN PO PAIN LEVEL 6-10 Last administered on 08/30/16 21:23; Admin Dose 1 TAB; Start 08/24/16 at 14:00 Sodium Chloride (NS) 1,000 ml @ 100 mls/hr Q10H IV Last administered on 23:27; Admin Dose 100 MLS/HR; Start 08/24/16 at 13:58 Gabapentin (Neurontin) 600 mg TID PO Last administered on 09/04/16 21:29; Admin Dose 600 MG; Start 08/24/16 at 21:00 Mirtazapine (Remeron) 15 mg HS PO Last administered on 09/04/16 21:28; Admin Dose 15 MG; Start 08/24/16 at 21:00 Ranitidine HCl (Zantac) 150 mg BID PO Last administered on 09/04/16 21:29; Admin Dose 150 MG; Start 08/24/16 at 21:00 Vancomycin HCl (Vancomycin Oral Syringe) 250 mg Q6 PO Last administered on 09/05 05:58; Admin Dose 250 MG; Start 08/30/16 at 00:00 Acetaminophen 650 mg 650 mg Q6H PRN PO PAIN AND OR ELEVATED TEMP Last administered on 09/04/16 22:35; Admin Dose 650 MG; Start 08/29/16 at 21:00 Metronidazole 100 ml @ 100 mls/hr Q8 IVPB Last administered on 09/05/16 05:58 ; Admin Dose 100 MLS/HR; Start 08/31/16 at 21:00 Meropenem 100 ml @ 200 mls/hr Q8 IVPB Last administered on 09/05/16 05:59; Admin Dose 200 MLS/HR; Start 08/31/16 at 22:00 Caspofungin/ Sodium Chloride (Cancidas/NS) 250 ml @ 250 mls/hr Q24H IVPB Last administered on 09/04/16 16:30; Admin Dose 250 MLS/HR; Start 09/04/16 at 14:00 Acyclovir 400 mg 400 mg TID PO Last administered on 09/04/16 21:28; Admin Dose 400 MG; Start 09/03/16 at 13:00; Stop 09/08/16 at 12:59 Vancomycin HCl/ Sodium Chloride (Vancocin/NS) 250 ml @ 83.333 mls/ hr Q12H IVPB Last administered on 6/21/17at 04:03; Admin Dose 83.333 MLS/HR; Start at 03:00 Miscellaneous Information (*Rx Drug Level Order Reminder*) VANCOMYCIN TROUGH ON @ 4,:00 ONCE ONCE XX ; Start 09/05/16 at 14:00; Stop 09/05/16 at 14:01 Allison MARIE Sep 05, 2016 08:17
[2016-09-05] MEDS: ACYCLOVIR 400 MG TAB PO SCH ×3 (09:18→21:27)
[2016-09-05] MEDS: GABAPENTIN 300 MG CAP PO SCH ×3 (09:18→21:27)
[2016-09-05] MEDS: RANITIDINE 150 MG TAB PO SCH ×2 (09:18→21:27)
--- NOTE | 2016-09-05 11:29 | CONS ---
Date/Time of Note Date/Time of Note DATE: 09/05/16 TIME: 11:23 Assessment/Plan Assessment/Plan Chief Complaint/Hosp Course assessment/impression - sepsis, possibly due to hepatic abscess and possible HCAP - C diff colitis - probable hepatic abscess: 5.5 x 3 x 3 cm gas and fluid collection within hepatic parenchyma adjacent to the gallbladder fossa. ETTA fluid culture grew enterobacter - possible HCAP (CXR 09/03/2016) - a high risk for invasive candidiasis, i.e. presence of thrush, intra- abdominal surgeries, receipt of broad spectrum antibacterial medications - h/o symptomatic gallstones s/p lap cholecystectomy converted to open, and placement of a drain on 08/24/2016. Pathologist's review showed chronic cholecystitis with extensive denudation of the mucosa, no malignancy. - h/o possible cholangitis, s/p ERCP, sphincterotomy, removal of common bile duct stone and placement of a CBD stent on 08/28/2016. Pathologist's review showed mild chronic inflammation, no malignancy - labial herpes infection - thrush - chronic lower back pain with history of lumbar burst fracture due to trauma, s /p surgery recommendations - I recommend drainage of the fluid collection either by CT or DANYELL guidance. I ordered cultures from the procedure - change meropenem (08/31/2016-) and IV vancomycin (09/03/2016-) to ceftriaxone (-). continue IV metronidazole (08/31/2016-) and empiric caspofungin (-) for complicated intra-abdominal infection - continue PO vancomycin (08/30/2016-) for C diff colitis - complete acyclovir (09/03/2016-) x 5 days for herpes labialis management d/w Pt, his daughter, JOSELIN Valentine and Dr. Tobar Problems: Consultation Date/Type/Reason Admit Date/Time Aug 26, 2016 at 12:13 Initial Consult Date 09/03/16 Type of Consultation: ID Referring Provider: GAGANDEEP ROWAN MD 24 HR Interval Summary Constitutional: improved Detailed Summary Eyes: no complaints ENT: no complaints Respiratory: no complaints Cardiovascular: no complaints Gastrointestinal: No diarrhea, No nausea, No vomiting Genitourinary: no complaints Musculoskeletal: no complaints Skin: no complaints Neurologic: no complaints Exam/Review of Systems Vital Signs Vitals Vital Signs Date Time Temp Pulse Resp B/P Pulse Ox O2 Delivery O2 Flow Rate FiO2 09/05/16 07:42 98.3 76 18 99/55 92 Intake and Output 09/04/16 09/04/16 09/05/16 15:00 23:00 07:00 Intake Total 200 ml 2200 ml 1580 ml Output Total 10 ml 2150 ml Balance 200 ml 2190 ml -570 ml Exam Constitutional: alert, oriented Psych: nl mood/affect, no complaints Head: atraumatic, normocephalic Eyes: nl conjunctiva, nl lids ENMT: nl external ears & nose, nl nasal mucosa & septum Neck: supple Respiratory: clear to auscultation, normal air movement Cardiovascular: nl pulses, regular rate and rhythm Gastrointestinal: non-tender, other (ETTA drain+), soft, surgical scars, No distended, No tender Musculoskeletal: nl extremities to inspection Extremities: edema Neurological: CRIB CLERK II-XII intact, nl mental status, nl speech Results Result Diagram: 09/05/16 0525 09/05/16 0525 Results 24 hrs Laboratory Tests Test 09/05/16 05:25 White Blood Count 10.8 Red Blood Count 3.80 L Hemoglobin 11.6 L Hematocrit 34.8 L Mean Corpuscular Volume 91.6 Mean Corpuscular Hemoglobin 30.5 Mean Corpuscular Hemoglobin Concent 33.3 Red Cell Distribution Width 13.6 Platelet Count 384 Mean Platelet Volume 9.3 Neutrophils % 79.5 H Lymphocytes % 12.2 L Monocytes % 4.7 Eosinophils % 2.7 Basophils % 0.3 Nucleated Red Blood Cells % 0.0 Neutrophils # 8.6 H Lymphocytes # 1.3 Monocytes # 0.5 Eosinophils # 0.3 Basophils # 0.0 Nucleated Red Blood Cells # 0.0 Sodium Level 138 Potassium Level 3.9 Chloride Level 103 Carbon Dioxide Level 28 Anion Gap 11 Blood Urea Nitrogen 11 Creatinine 0.67 Glucose Level 101 Calcium Level 8.5 Medications Medications Current Medications Morphine Sulfate (morphine) 2 mg Q2H PRN IV PAIN LEVEL 6-10 Last administered on 08/28/16 16:32; Admin Dose 2 MG; Start 08/24/16 at 14:00 Acetaminophen/ Hydrocodone Bitart 1 tab 1 tab Q6H PRN PO PAIN LEVEL 6-10 Last administered on 08/30/16 21:23; Admin Dose 1 TAB; Start 08/24/16 at 14:00 Sodium Chloride (NS) 1,000 ml @ 100 mls/hr Q10H IV Last administered on 23:27; Admin Dose 100 MLS/HR; Start 08/24/16 at 13:58 Gabapentin (Neurontin) 600 mg TID PO Last administered on 09/05/16 09:18; Admin Dose 600 MG; Start 08/24/16 at 21:00 Mirtazapine (Remeron) 15 mg HS PO Last administered on 09/04/16 21:28; Admin Dose 15 MG; Start 08/24/16 at 21:00 Ranitidine HCl (Zantac) 150 mg BID PO Last administered on 09/05/16 09:18; Admin Dose 150 MG; Start 08/24/16 at 21:00 Vancomycin HCl (Vancomycin Oral Syringe) 250 mg Q6 PO Last administered on 09/05 05:58; Admin Dose 250 MG; Start 08/30/16 at 00:00 Acetaminophen 650 mg 650 mg Q6H PRN PO PAIN AND OR ELEVATED TEMP Last administered on 09/04/16 22:35; Admin Dose 650 MG; Start 08/29/16 at 21:00 Metronidazole 100 ml @ 100 mls/hr Q8 IVPB Last administered on 09/05/16 05:58 ; Admin Dose 100 MLS/HR; Start 08/31/16 at 21:00 Meropenem 100 ml @ 200 mls/hr Q8 IVPB Last administered on 09/05/16 05:59; Admin Dose 200 MLS/HR; Start 08/31/16 at 22:00 Caspofungin/ Sodium Chloride (Cancidas/NS) 250 ml @ 250 mls/hr Q24H IVPB Last administered on 09/04/16 16:30; Admin Dose 250 MLS/HR; Start 09/04/16 at 14:00 Acyclovir 400 mg 400 mg TID PO Last administered on 09/05/16 09:18; Admin Dose 400 MG; Start 09/03/16 at 13:00; Stop 09/08/16 at 12:59 Vancomycin HCl/ Sodium Chloride (Vancocin/NS) 250 ml @ 83.333 mls/ hr Q12H IVPB Last administered on 6/21/17at 04:03; Admin Dose 83.333 MLS/HR; Start at 03:00 Miscellaneous Information (*Rx Drug Level Order Reminder*) VANCOMYCIN TROUGH ON @ 4,:00 ONCE ONCE XX ; Start 09/05/16 at 14:00; Stop 09/05/16 at 14:01 REMY ASTORGA M.D. Sep 05, 2016 11:28 REMY ASTORGA M.D. Sep 05, 2016 11:28
[2016-09-05] MEDS: CEFTRIAXONE 2 GM/50 ML (PMX) 50 ML IVPB SCH (12:55)
--- NOTE | 2016-09-05 14:04 | PN ---
Date/Time of Note Date/Time of Note DATE: 09/05/16 TIME: 14:02 Assessment/Plan VTE Prophylaxis VTE Prophylaxis Intervention: SCD's Lines/Catheters [facility] Type (from [facility] Saline Lock Urinary Cath still in place: No Assessment/Plan Chief Complaint/Hosp Course Patient remains afebrile there is no nausea no vomiting Assessment/Plan - Sepsis most likely due to hepatic abscess versus pneumonia. Dr. Black is following in infection disease consultation. Continue antibiotics per ID. - C. difficile colitis, continue vancomycin. - Common bile duct stone. Dr. An is following in gastroenterology consultation, s/p ERCP, sphincterotomy, removal of common bile duct stone and placement of a CBD stent 05/29. - Symptomatic gallstones, status post status post laparoscopic converted to open cholecystectomy. Continue to follow-up surgical recommendation. Continue [place] and morphine as needed for pain. - Chronic lower back pain with history of lumbar burst fracture due to trauma, status post surgery. Further recommendations based on clinical course. Plan of care discussed with Dr. Anguiano. Problems: Exam/Review of Systems Vital Signs Vitals Vital Signs Date Time Temp Pulse Resp B/P Pulse Ox O2 Delivery O2 Flow Rate FiO2 09/05/16 07:42 98.3 76 18 99/55 92 Intake and Output 09/04/16 09/04/16 09/05/16 15:00 23:00 07:00 Intake Total 200 ml 2200 ml 1580 ml Output Total 10 ml 2150 ml Balance 200 ml 2190 ml -570 ml Exam Constitutional: alert Head: normocephalic Neck: supple Respiratory: clear to auscultation Cardiovascular: nl pulses Gastrointestinal: other (Status post surgery was ETTA drain), soft Extremities: normal pulses Results Result Diagram: 09/05/1625 09/05/16 0525 Results 24 hrs Laboratory Tests Test 09/05/16 05:25 White Blood Count 10.8 Red Blood Count 3.80 L Hemoglobin 11.6 L Hematocrit 34.8 L Mean Corpuscular Volume 91.6 Mean Corpuscular Hemoglobin 30.5 Mean Corpuscular Hemoglobin Concent 33.3 Red Cell Distribution Width 13.6 Platelet Count 384 Mean Platelet Volume 9.3 Neutrophils % 79.5 H Lymphocytes % 12.2 L Monocytes % 4.7 Eosinophils % 2.7 Basophils % 0.3 Nucleated Red Blood Cells % 0.0 Neutrophils # 8.6 H Lymphocytes # 1.3 Monocytes # 0.5 Eosinophils # 0.3 Basophils # 0.0 Nucleated Red Blood Cells # 0.0 Sodium Level 138 Potassium Level 3.9 Chloride Level 103 Carbon Dioxide Level 28 Anion Gap 11 Blood Urea Nitrogen 11 Creatinine 0.67 Glucose Level 101 Calcium Level 8.5 Medications Medications Current Medications Morphine Sulfate (morphine) 2 mg Q2H PRN IV PAIN LEVEL 6-10 Last administered on 08/28/16 16:32; Admin Dose 2 MG; Start 08/24/16 at 14:00 Acetaminophen/ Hydrocodone Bitart 1 tab 1 tab Q6H PRN PO PAIN LEVEL 6-10 Last administered on 08/30/16 21:23; Admin Dose 1 TAB; Start 08/24/16 at 14:00 Sodium Chloride (NS) 1,000 ml @ 100 mls/hr Q10H IV Last administered on 23:27; Admin Dose 100 MLS/HR; Start 08/24/16 at 13:58 Gabapentin (Neurontin) 600 mg TID PO Last administered on 09/05/16 12:21; Admin Dose 600 MG; Start 08/24/16 at 21:00 Mirtazapine (Remeron) 15 mg HS PO Last administered on 09/04/16 21:28; Admin Dose 15 MG; Start 08/24/16 at 21:00 Ranitidine HCl (Zantac) 150 mg BID PO Last administered on 09/05/16 09:18; Admin Dose 150 MG; Start 08/24/16 at 21:00 Vancomycin HCl (Vancomycin Oral Syringe) 250 mg Q6 PO Last administered on 09/05 12:21; Admin Dose 250 MG; Start 08/30/16 at 00:00 Acetaminophen 650 mg 650 mg Q6H PRN PO PAIN AND OR ELEVATED TEMP Last administered on 09/04/16 22:35; Admin Dose 650 MG; Start 08/29/16 at 21:00 Metronidazole 100 ml @ 100 mls/hr Q8 IVPB Last administered on 09/05/16 05:58 ; Admin Dose 100 MLS/HR; Start 08/31/16 at 21:00 Caspofungin/ Sodium Chloride (Cancidas/NS) 250 ml @ 250 mls/hr Q24H IVPB Last administered on 09/04/16 16:30; Admin Dose 250 MLS/HR; Start 09/04/16 at 14:00 Acyclovir 400 mg 400 mg TID PO Last administered on 09/05/16 12:21; Admin Dose 400 MG; Start 09/03/16 at 13:00; Stop 09/08/16 at 12:59 Ceftriaxone Sodium (Rocephin) 50 ml @ 100 mls/hr Q24H IVPB Last administered on 09/05/16 12:55; Admin Dose 100 MLS/HR; Start 09/05/16 at 13:00 FELIBERTO SANTOS Sep 05, 2016 14:04
--- NOTE | 2016-09-05 19:05 | CONS ---
DATE OF ADMISSION: 08/26/2016 DATE OF CONSULTATION: 09/05/2016 TYPE OF CONSULTATION: Gastroenterology. SUBJECTIVE: The patient has no significant complaints; however, I saw the patient earlier on. ERCP was done. Common bile duct stone was removed, and now GI consultation is requested to see if the l iver abscess can be drained percutaneously. The ultrasound of the abdomen shows shadowing in the ga llbladder fossa region consistent with gas and fluid collection as seen on the prior CT scan. The size of this collection of fluid in the gallbladder fossa is not mentioned on the report. PLAN: As mentioned earlier on, we will proceed with drainage. Once again, doctor, thank you for this consultation. I will be happy to follow this patient with yo u. Dictated By: REBEKAH MERA MD NC/NTS Conf#: [id number] DID#: [id number] CC: GAGANDEEP ROWAN MD; REBEKAH MERA MD;*End*
[2016-09-05 19:13] VITALS: BP 97/65; RESP 20
[2016-09-05 19:59] VITALS: BP 97/65; RESP 18
[2016-09-05] MEDS: MIRTAZAPINE 15 MG TAB PO SCH (21:27)
[2016-09-06] MEDS: VANCOMYCIN HCL 250 MG/5ML POSYG PO SCH ×5 (00:20→22:55)
[2016-09-06] MEDS: SOD CHLORIDE 0.9% 1,000 ML IV SCH ×3 (01:58→22:53)
[2016-09-06] MEDS: metroNIDAZOLE 500 MG/NS (PMX) 100 ML IVPB SCH ×3 (05:09→22:53)
[2016-09-06 05:55] LABS: ADD SCAN DIFF NO
[2016-09-06 06:13] LABS: BASOPHILS % 0.4 % (0.0-2.0); EOSINOPHILS # 0.3 10^3/ul (0.0-0.5); EOSINOPHILS % 3.6 % (0.0-7.0); HEMATOCRIT 33.8 % (42.0-52.0); HEMOGLOBIN 11.4 g/dl (14.0-18.0); LYMPHOCYTES # 1.6 10^3/ul (0.8-2.9); LYMPHOCYTES % 19.8 % (15.0-51.0); MEAN CORPUSCULAR HEMOGLOBIN 30.5 pg (29.0-33.0); MEAN CORPUSCULAR HGB CONC 33.7 g/dl (32.0-37.0); MEAN CORPUSCULAR VOLUME 90.4 fl (82.0-101.0); MEAN PLATELET VOLUME 9.3 fl (7.4-10.4); MONOCYTE # 0.4 10^3/ul (0.3-0.9); MONOCYTES % 4.3 % (0.0-11.0); NEUTROPHIL # 5.9 10^3/ul (1.6-7.5); NEUTROPHILS % 71.3 % (39.0-77.0); PLATELET COUNT 436 10^3/UL (140-415); RED BLOOD COUNT 3.74 10^6/ul (4.70-6.10); RED CELL DISTRIBUTION WIDTH 13.6 % (11.5-14.5); WHITE BLOOD COUNT 8.3 10^3/ul (4.8-10.8)
[2016-09-06 06:41] LABS: CALCIUM 8.6 mg/dl (8.4-10.2); CREATININE 0.67 mg/dl (0.61-1.24); POTASSIUM 3.9 mmol/L (3.5-5.1)
[2016-09-06 08:20] VITALS: BP 100/59; RESP 18
[2016-09-06] MEDS: ACYCLOVIR 400 MG TAB PO SCH ×3 (09:36→20:48)
[2016-09-06] MEDS: RANITIDINE 150 MG TAB PO SCH ×2 (09:36→20:48)
[2016-09-06] MEDS: GABAPENTIN 300 MG CAP PO SCH ×3 (09:36→20:48)
[2016-09-06] MEDS: CEFTRIAXONE 2 GM/50 ML (PMX) 50 ML IVPB SCH (13:40)
--- NOTE | 2016-09-06 14:35 | PN ---
Date/Time of Note Date/Time of Note DATE: 09/06/16 TIME: 14:31 Assessment/Plan Lines/Catheters [facility] C[facility] Type [facility]from [facility] Saline Lock Urinary Cath still in place: No Assessment/Plan Assessment/Plan - Sepsis most likely due to hepatic abscess versus pneumonia - per surgery. plan for IR abscess drain at around 3 pm today per staff. - Dr. Black is following in infection disease consultation. Continue antibiotics per ID. - C. difficile colitis, continue vancomycin. - Common bile duct stone. Dr. An is following in gastroenterology consultation, s/p ERCP, sphincterotomy, removal of common bile duct stone and placement of a CBD stent 05/29. - Symptomatic gallstones, status post status post laparoscopic converted to open cholecystectomy. Continue to follow-up surgical recommendation. Continue [place] and morphine as needed for pain. - Chronic lower back pain with history of lumbar burst fracture due to trauma, status post surgery. Further recommendations based on clinical course. Plan of care discussed with Dr. Anguiano. Subjective 24 Hr Interval Summary Free Text/Dictation C/O abdominal pain- plan for IR abscess drain at around 3 pm today per staff. Eyes: pain ENT: no complaints Cardiovascular: no complaints Gastrointestinal: pain Exam/Review of Systems Vital Signs Vitals Vital Signs Date Time Temp Pulse Resp B/P Pulse Ox O2 Delivery O2 Flow Rate FiO2 09/06/16 08:20 98.3 84 18 100/59 94 Intake and Output 09/05/16 09/05/16 09/06/16 15:00 23:00 07:00 Intake Total 150 ml 2050 ml 1580 ml Output Total 5 ml 1420 ml 1025 ml Balance 145 ml 630 ml 555 ml Exam Constitutional: alert, oriented, well developed Respiratory: clear to auscultation, normal air movement Cardiovascular: nl pulses, regular rate and rhythm Gastrointestinal: soft, tender Musculoskeletal: nl extremities to inspection Extremities: normal pulses Neurological: nl mental status, nl speech Results Result Diagram: 09/06/16 0520 09/06/16 0520 Results 24 hrs Laboratory Tests Test 09/06/16 05:20 White Blood Count 8.3 # Red Blood Count 3.74 L Hemoglobin 11.4 L Hematocrit 33.8 L Mean Corpuscular Volume 90.4 Mean Corpuscular Hemoglobin 30.5 Mean Corpuscular Hemoglobin Concent 33.7 Red Cell Distribution Width 13.6 Platelet Count 436 H Mean Platelet Volume 9.3 Neutrophils % 71.3 Lymphocytes % 19.8 Monocytes % 4.3 Eosinophils % 3.6 Basophils % 0.4 Nucleated Red Blood Cells % 0.0 Neutrophils # 5.9 Lymphocytes # 1.6 Monocytes # 0.4 Eosinophils # 0.3 Basophils # 0.0 Nucleated Red Blood Cells # 0.0 Sodium Level 137 Potassium Level 3.9 Chloride Level 102 Carbon Dioxide Level 28 Anion Gap 11 Blood Urea Nitrogen 10 Creatinine 0.67 Glucose Level 100 Calcium Level 8.6 Medications Medications Current Medications Morphine Sulfate (morphine) 2 mg Q2H PRN IV PAIN LEVEL 6-10 Last administered on 08/28/16 16:32; Admin Dose 2 MG; Start 08/24/16 at 14:00 Acetaminophen/ Hydrocodone Bitart 1 tab 1 tab Q6H PRN PO PAIN LEVEL 6-10 Last administered on 08/30/16 21:23; Admin Dose 1 TAB; Start 08/24/16 at 14:00 Sodium Chloride (NS) 1,000 ml @ 100 mls/hr Q10H IV Last administered on 05:09; Admin Dose 100 MLS/HR; Start 08/24/16 at 13:58 Gabapentin (Neurontin) 600 mg TID PO Last administered on 09/06/16 09:36; Admin Dose 600 MG; Start 08/24/16 at 21:00 Mirtazapine (Remeron) 15 mg HS PO Last administered on 09/05/16 21:27; Admin Dose 15 MG; Start 08/24/16 at 21:00 Ranitidine HCl (Zantac) 150 mg BID PO Last administered on 09/06/16 09:36; Admin Dose 150 MG; Start 08/24/16 at 21:00 Vancomycin HCl (Vancomycin Oral Syringe) 250 mg Q6 PO Last administered on 09/06 05:09; Admin Dose 250 MG; Start 08/30/16 at 00:00 Acetaminophen 650 mg 650 mg Q6H PRN PO PAIN AND OR ELEVATED TEMP Last administered on 09/04/16 22:35; Admin Dose 650 MG; Start 08/29/16 at 21:00 Metronidazole 100 ml @ 100 mls/hr Q8 IVPB Last administered on 09/06/16 05:09 ; Admin Dose 100 MLS/HR; Start 08/31/16 at 21:00 Caspofungin/ Sodium Chloride (Cancidas/NS) 250 ml @ 250 mls/hr Q24H IVPB Last administered on 09/04/16 16:30; Admin Dose 250 MLS/HR; Start 09/04/16 at 14:00 Acyclovir 400 mg 400 mg TID PO Last administered on 09/06/16 09:36; Admin Dose 400 MG; Start 09/03/16 at 13:00; Stop 09/08/16 at 12:59 Ceftriaxone Sodium (Rocephin) 50 ml @ 100 mls/hr Q24H IVPB Last administered on 09/06/16 13:40; Admin Dose 100 MLS/HR; Start 09/05/16 at 13:00 BETITO HOLDER Sep 06, 2016 14:35
[2016-09-06] MEDS ORDERED: FENTAnyl 50 MCG/ML VIAL ONE (15:42)
[2016-09-06] MEDS ORDERED: MIDAZOLAM 1 MG/ML 2 ML INJ ONE (15:42)
[2016-09-06] MEDS ORDERED: LIDOCAINE 1% (MDV) 20 ML INJ ONE (15:42)
[2016-09-06] MEDS ORDERED: DIPHENHYDRAMINE 50 MG INJ ONE (15:43)
--- NOTE | 2016-09-06 17:26 | RADRPT ---
PROCEDURE: CT guided abdominal abscess drainage. CLINICAL INDICATION: Abdominal pain. Post cholecystectomy. TECHNIQUE: Informed consent was obtained. The procedure, risks, benefits, complications and alternatives were explained to the patient. Risks including bleeding and infection were explained. The patient underst ood and was willing to proceed. A procedural pause was performed. The patient's name, date of , and procedure to be performed were verified. One or more of the following dose reduction techniq ues were used: Automated exposure control, adjustment of the mA and/or kV according to patient size, use of iterative reconstruction technique. Using local anesthetic, sterile technique and CT guidance, a 19-gauge Yueh needle was advanced into the fluid collection in the gallbladder bed. CT scan was performed confirming position. Purulent f luid was also aspirated confirming position. The needle from the Yueh catheter was removed, leaving the Yueh catheter in place within the fluid collection. A 0.035-inch Amplatz guidewire was advance d through the Yueh catheter into the fluid collection. The Yueh catheter was removed. The tract wa s dilated to 8-Bulgarian. An 8.5 Bulgarian multipurpose drainage catheter was advanced over the guidewire into the fluid collection. The guidewire was removed. Additional scanning was performed confirmin g position. The catheter was then sutured to the patient's skin with 2-0 silk. Approximately 20 ml of purulent fluid was aspirated. The catheter was connected to a drainage bag. A dressing was rosalie lied. The patient tolerated procedure well. COMPARISON: None. FINDINGS: Final images demonstrate the drainage catheter in satisfactory position within the abscess in the ga llbladder bed. IMPRESSION: 1. Successful CT guided gallbladder bed abscess drainage. RPTAT: QQ .Emmett Cardoso MD, Date Time Electronically viewed and signed by .Emmett Cardoso MD, MD on 09/06/2016 17:26 .R/
[2016-09-06] MEDS: CASPOFUNGIN 50 MG in SOD CHLORIDE 0.9% 250 ML IVPB SCH (17:56)
[2016-09-06] MEDS: HYDROCODONE/APAP (5/325) TAB PO PRN (18:13)
[2016-09-06 20:09] VITALS: BP 106/57; RESP 19
--- NOTE | 2016-09-06 20:26 | CONS ---
DATE OF ADMISSION: 08/26/2016 DATE OF CONSULTATION: 09/06/2016 CHIEF COMPLAINT: The patient says that he underwent drainage of the fluid collection in the gallbla dder fossa. The patient had an open cholecystectomy. Subsequently, the study shows that there is e vidence of a fluid collection with air in the gallbladder fossa, and because of that, he underwent p ercutaneous drainage of the fluid collection. OBJECTIVE: On examination, the patient appears to be alert, not in distress. Abdomen is soft. He has both drainage catheters; one is ETTA drainage, the other one is a new catheter that was placed int o the gallbladder fossa for fluid collection. PLAN: Continue to the drainage. I will be happy to follow this patient along with you. Dictated By: REBEKAH STONE/NTS Conf#: [id number] DID#: [id number] CC: GAGANDEEP ROWAN MD;*EndCC*
--- NOTE | 2016-09-06 20:38 | CONS ---
Date/Time of Note Date/Time of Note DATE: 09/06/16 TIME: 20:35 Assessment/Plan Assessment/Plan Chief Complaint/Hosp Course assessment/impression - sepsis, possibly due to hepatic abscess and possible HCAP - C diff colitis - probable hepatic abscess: 5.5 x 3 x 3 cm gas and fluid collection within hepatic parenchyma adjacent to the gallbladder fossa. ETTA fluid culture grew enterobacter. s/p CT-guided drainage on 09/06/2016 - possible HCAP (CXR 09/03/2016) - a high risk for invasive candidiasis, i.e. presence of thrush, intra- abdominal surgeries, receipt of broad spectrum antibacterial medications - h/o symptomatic gallstones s/p lap cholecystectomy converted to open, and placement of a drain on 08/24/2016. Pathologist's review showed chronic cholecystitis with extensive denudation of the mucosa, no malignancy. - h/o possible cholangitis, s/p ERCP, sphincterotomy, removal of common bile duct stone and placement of a CBD stent on 08/28/2016. Pathologist's review showed mild chronic inflammation, no malignancy - labial herpes infection - thrush - chronic lower back pain with history of lumbar burst fracture due to trauma, s /p surgery recommendations - pending: fluid from ETTA and CT guided drainage - continue ceftriaxone (09/05/2016-), IV metronidazole (08/31/2016-) and empiric caspofungin (09/03/2016-) for complicated intra-abdominal infection. Pt took meropenem (08/31/2016-09/05/2016) and IV vancomycin (09/03/2016-09/05/2016) - continue PO vancomycin (08/30/2016-) for C diff colitis - complete acyclovir (09/03/2016-) x 5 days for herpes labialis management d/w Pt, his family, RN, R[employer]K ENGINEER Meme, Dr. Anguiano and Dr. An Problems: Consultation Date/Type/Reason Admit Date/Time Aug 26, 2016 at 12:13 Initial Consult Date 09/03/16 Type of Consultation: ID Referring Provider: GAGANDEEP ANGUIANO MD 24 HR Interval Summary Free Text/Dictation s/p CT guided drainage of abscess Constitutional: chills Detailed Summary Eyes: no complaints ENT: no complaints Respiratory: no complaints Cardiovascular: no complaints Gastrointestinal: pain (RUQ), passing stool, No nausea Genitourinary: no complaints Musculoskeletal: no complaints Skin: no complaints Neurologic: no complaints Exam/Review of Systems Vital Signs Vitals Vital Signs Date Time Temp Pulse Resp B/P Pulse Ox O2 Delivery O2 Flow Rate FiO2 09/06/16 20:09 98.4 97 19 106/57 92 Intake and Output 09/05/16 09/05/16 09/06/16 15:00 23:00 07:00 Intake Total 150 ml 2050 ml 1580 ml Output Total 5 ml 1420 ml 1025 ml Balance 145 ml 630 ml 555 ml Exam Constitutional: frail Psych: nl mood/affect, no complaints Head: atraumatic, normocephalic Eyes: nl conjunctiva, nl lids ENMT: nl external ears & nose, nl nasal mucosa & septum Neck: supple Respiratory: diminished breath sounds Cardiovascular: nl pulses, regular rate and rhythm Gastrointestinal: bowel sounds, other (ETTA and external drainage cath in RUQ), soft, No distended Musculoskeletal: nl extremities to inspection Extremities: edema Neurological: FIELD ENGINEER II-XII intact, nl mental status, nl speech Results Result Diagram: 09/06/1651909/06/16 0520 Results 24 hrs Laboratory Tests Test 09/06/16 05:20 White Blood Count 8.3 # Red Blood Count 3.74 L Hemoglobin 11.4 L Hematocrit 33.8 L Mean Corpuscular Volume 90.4 Mean Corpuscular Hemoglobin 30.5 Mean Corpuscular Hemoglobin Concent 33.7 Red Cell Distribution Width 13.6 Platelet Count 436 H Mean Platelet Volume 9.3 Neutrophils % 71.3 Lymphocytes % 19.8 Monocytes % 4.3 Eosinophils % 3.6 Basophils % 0.4 Nucleated Red Blood Cells % 0.0 Neutrophils # 5.9 Lymphocytes # 1.6 Monocytes # 0.4 Eosinophils # 0.3 Basophils # 0.0 Nucleated Red Blood Cells # 0.0 Sodium Level 137 Potassium Level 3.9 Chloride Level 102 Carbon Dioxide Level 28 Anion Gap 11 Blood Urea Nitrogen 10 Creatinine 0.67 Glucose Level 100 Calcium Level 8.6 Medications Medications Current Medications Morphine Sulfate (morphine) 2 mg Q2H PRN IV PAIN LEVEL 6-10 Last administered on 08/28/16t 16:32; Admin Dose 2 MG; Start 08/24/16 at 14:00 Acetaminophen/ Hydrocodone Bitart 1 tab 1 tab Q6H PRN PO PAIN LEVEL 6-10 Last administered on 09/06/16 18:13; Admin Dose 1 TAB; Start 08/24/16 at 14:00 Sodium Chloride (NS) 1,000 ml @ 100 mls/hr Q10H IV Last administered on 05:09; Admin Dose 100 MLS/HR; Start 08/24/16 at 13:58 Gabapentin (Neurontin) 600 mg TID PO Last administered on 09/06/16 09:36; Admin Dose 600 MG; Start 08/24/16 at 21:00 Mirtazapine (Remeron) 15 mg HS PO Last administered on 09/05/16 21:27; Admin Dose 15 MG; Start 08/24/16 at 21:00 Ranitidine HCl (Zantac) 150 mg BID PO Last administered on 09/06/16 09:36; Admin Dose 150 MG; Start 08/24/16 at 21:00 Vancomycin HCl (Vancomycin Oral Syringe) 250 mg Q6 PO Last administered on 09/06 18:12; Admin Dose 250 MG; Start 08/30/16 at 00:00 Acetaminophen 650 mg 650 mg Q6H PRN PO PAIN AND OR ELEVATED TEMP Last administered on 09/04/16 22:35; Admin Dose 650 MG; Start 08/29/16 at 21:00 Metronidazole 100 ml @ 100 mls/hr Q8 IVPB Last administered on 09/06/16 14:54 ; Admin Dose 100 MLS/HR; Start 08/31/16 at 21:00 Caspofungin/ Sodium Chloride (Cancidas/NS) 250 ml @ 250 mls/hr Q24H IVPB Last administered on 09/06/16 17:56; Admin Dose 250 MLS/HR; Start 09/04/16 at 14:00 Acyclovir 400 mg 400 mg TID PO Last administered on 09/06/16 09:36; Admin Dose 400 MG; Start 09/03/16 at 13:00; Stop 09/08/16 at 12:59 Ceftriaxone Sodium (Rocephin) 50 ml @ 100 mls/hr Q24H IVPB Last administered on 09/06/16 13:40; Admin Dose 100 MLS/HR; Start 09/05/16 at 13:00 REMY ASTORGA M.D. Sep 06, 2016 20:38
[2016-09-06] MEDS: MIRTAZAPINE 15 MG TAB PO SCH (20:48)
[2016-09-07] MEDS: VANCOMYCIN HCL 250 MG/5ML POSYG PO SCH ×4 (05:33→22:44)
[2016-09-07] MEDS: metroNIDAZOLE 500 MG/NS (PMX) 100 ML IVPB SCH ×3 (05:33→22:42)
[2016-09-07 05:46] LABS: ADD SCAN DIFF NO
[2016-09-07 05:49] LABS: BASOPHILS % 0.3 % (0.0-2.0); EOSINOPHILS # 0.2 10^3/ul (0.0-0.5); EOSINOPHILS % 1.6 % (0.0-7.0); HEMATOCRIT 34.3 % (42.0-52.0); HEMOGLOBIN 11.4 g/dl (14.0-18.0); LYMPHOCYTES # 1.6 10^3/ul (0.8-2.9); LYMPHOCYTES % 13.7 % (15.0-51.0); MEAN CORPUSCULAR HEMOGLOBIN 30.4 pg (29.0-33.0); MEAN CORPUSCULAR HGB CONC 33.2 g/dl (32.0-37.0); MEAN CORPUSCULAR VOLUME 91.5 fl (82.0-101.0); MEAN PLATELET VOLUME 9.3 fl (7.4-10.4); MONOCYTE # 0.4 10^3/ul (0.3-0.9); MONOCYTES % 3.3 % (0.0-11.0); NEUTROPHIL # 9.4 10^3/ul (1.6-7.5); NEUTROPHILS % 80.2 % (39.0-77.0); PLATELET COUNT 456 10^3/UL (140-415); RED BLOOD COUNT 3.75 10^6/ul (4.70-6.10); RED CELL DISTRIBUTION WIDTH 13.6 % (11.5-14.5); WHITE BLOOD COUNT 11.7 10^3/ul (4.8-10.8)
[2016-09-07 06:49] LABS: CALCIUM 8.4 mg/dl (8.4-10.2); CREATININE 0.71 mg/dl (0.61-1.24); POTASSIUM 3.9 mmol/L (3.5-5.1)
[2016-09-07 07:49] VITALS: BP 98/56; RESP 18
[2016-09-07] MEDS: SOD CHLORIDE 0.9% 1,000 ML IV SCH ×2 (07:58→12:48)
--- NOTE | 2016-09-07 08:47 | PN ---
Date/Time of Note Date/Time of Note DATE: 09/07/16 TIME: 08:45 Assessment/Plan VTE Prophylaxis VTE Prophylaxis Intervention: SCD's Lines/Catheters IV Catheter Type (from [facility]): Peripheral IV Urinary Cath still in place: No Assessment/Plan Chief Complaint/Hosp Course s/p lap gabi converted to open due to intrahepatic gallbladder had bile leak, cbd ok. ercp showed cbd stone Problems: Assessment/Plan had c diff diarrhea which has resolved along with leukocytosis and fevers had perc drain without much output doing well ok to dc today or tomorrow with drains which will be removed in the office Subjective 24 Hr Interval Summary Free Text/Dictation perc drain placed with no output, serous drainage from [place] drain, diarrhea resolved with normal leukocytosis and no fevers Exam/Review of Systems Vital Signs Vitals Vital Signs Date Time Temp Pulse Resp B/P Pulse Ox O2 Delivery O2 Flow Rate FiO2 09/07/16 07:49 98.9 83 18 98/56 90 Intake and Output 09/06/16 09/06/16 09/07/16 15:00 23:00 07:00 Intake Total 150 ml 1250 ml 1100 ml Output Total 800 ml 810 ml Balance 150 ml 450 ml 290 ml Exam c/d/i Results Result Diagram: 09/07/16 0500 09/07/16 0520 Results 24 hrs Laboratory Tests Test 09/07/16 05:00 09/07/16 05:20 White Blood Count 11.7 #H Red Blood Count 3.75 L Hemoglobin 11.4 L Hematocrit 34.3 L Mean Corpuscular Volume 91.5 Mean Corpuscular Hemoglobin 30.4 Mean Corpuscular Hemoglobin Concent 33.2 Red Cell Distribution Width 13.6 Platelet Count 456 H Mean Platelet Volume 9.3 Neutrophils % 80.2 H Lymphocytes % 13.7 L Monocytes % 3.3 Eosinophils % 1.6 Basophils % 0.3 Nucleated Red Blood Cells % 0.0 Neutrophils # 9.4 H Lymphocytes # 1.6 Monocytes # 0.4 Eosinophils # 0.2 Basophils # 0.0 Nucleated Red Blood Cells # 0.0 Sodium Level 136 Potassium Level 3.9 Chloride Level 103 Carbon Dioxide Level 27 Anion Gap 10 Blood Urea Nitrogen 11 Creatinine 0.71 Glucose Level 97 Calcium Level 8.4 Medications Medications Current Medications Morphine Sulfate (morphine) 2 mg Q2H PRN IV PAIN LEVEL 6-10 Last administered on 08/28/16 16:32; Admin Dose 2 MG; Start 08/24/16 at 14:00 Acetaminophen/ Hydrocodone Bitart 1 tab 1 tab Q6H PRN PO PAIN LEVEL 6-10 Last administered on 09/06/16 18:13; Admin Dose 1 TAB; Start 08/24/16 at 14:00 Sodium Chloride (NS) 1,000 ml @ 100 mls/hr Q10H IV Last administered on 22:53; Admin Dose 100 MLS/HR; Start 08/24/16 at 13:58 Gabapentin (Neurontin) 600 mg TID PO Last administered on 09/06/16 20:48; Admin Dose 600 MG; Start 08/24/16 at 21:00 Mirtazapine (Remeron) 15 mg HS PO Last administered on 09/06/16 20:48; Admin Dose 15 MG; Start 08/24/16 at 21:00 Ranitidine HCl (Zantac) 150 mg BID PO Last administered on 09/06/16 20:48; Admin Dose 150 MG; Start 08/24/16 at 21:00 Vancomycin HCl (Vancomycin Oral Syringe) 250 mg Q6 PO Last administered on 09/07 05:33; Admin Dose 250 MG; Start 08/30/16 at 00:00 Acetaminophen 650 mg 650 mg Q6H PRN PO PAIN AND OR ELEVATED TEMP Last administered on 09/04/16 22:35; Admin Dose 650 MG; Start 08/29/16 at 21:00 Metronidazole 100 ml @ 100 mls/hr Q8 IVPB Last administered on 09/07/16 05:33 ; Admin Dose 100 MLS/HR; Start 08/31/16 at 21:00 Caspofungin/ Sodium Chloride (Cancidas/NS) 250 ml @ 250 mls/hr Q24H IVPB Last administered on 09/06/16 17:56; Admin Dose 250 MLS/HR; Start 09/04/16 at 14:00 Acyclovir 400 mg 400 mg TID PO Last administered on 09/06/16 20:48; Admin Dose 400 MG; Start 09/03/16 at 13:00; Stop 09/08/16 at 12:59 Ceftriaxone Sodium (Rocephin) 50 ml @ 100 mls/hr Q24H IVPB Last administered on 09/06/16t 13:40; Admin Dose 100 MLS/HR; Start 09/05/16 at 13:00 Allison MARIE Sep 07, 2016 08:47
[2016-09-07] MEDS: ACYCLOVIR 400 MG TAB PO SCH ×3 (08:53→20:45)
[2016-09-07] MEDS: RANITIDINE 150 MG TAB PO SCH ×2 (08:53→20:45)
[2016-09-07] MEDS: GABAPENTIN 300 MG CAP PO SCH ×3 (08:53→20:45)
--- NOTE | 2016-09-07 12:18 | CONS ---
Date/Time of Note Date/Time of Note DATE: 09/07/16 TIME: 12:16 Assessment/Plan Assessment/Plan Chief Complaint/Hosp Course appears stable post gb area drainage Problems: Consultation Date/Type/Reason Admit Date/Time Aug 26, 2016 at 12:13 Initial Consult Date 09/03/16 Type of Consultation: ID Referring Provider: GAGANDEEP ROWAN MD 24 HR Interval Summary Free Text/Dictation s/p percut dtainage of gb fossa collection Exam/Review of Systems Vital Signs Vitals Vital Signs Date Time Temp Pulse Resp B/P Pulse Ox O2 Delivery O2 Flow Rate FiO2 09/07/16 07:49 98.9 83 18 98/56 90 Intake and Output 09/06/16 09/06/16 09/07/16 15:00 23:00 07:00 Intake Total 150 ml 1250 ml 1100 ml Output Total 800 ml 810 ml Balance 150 ml 450 ml 290 ml Exam not much drainage from gb fossa strable Results Result Diagram: 09/07/16 0500 09/07/16 0520 Results 24 hrs Laboratory Tests Test 09/07/16 05:00 09/07/16 05:20 White Blood Count 11.7 #H Red Blood Count 3.75 L Hemoglobin 11.4 L Hematocrit 34.3 L Mean Corpuscular Volume 91.5 Mean Corpuscular Hemoglobin 30.4 Mean Corpuscular Hemoglobin Concent 33.2 Red Cell Distribution Width 13.6 Platelet Count 456 H Mean Platelet Volume 9.3 Neutrophils % 80.2 H Lymphocytes % 13.7 L Monocytes % 3.3 Eosinophils % 1.6 Basophils % 0.3 Nucleated Red Blood Cells % 0.0 Neutrophils # 9.4 H Lymphocytes # 1.6 Monocytes # 0.4 Eosinophils # 0.2 Basophils # 0.0 Nucleated Red Blood Cells # 0.0 Sodium Level 136 Potassium Level 3.9 Chloride Level 103 Carbon Dioxide Level 27 Anion Gap 10 Blood Urea Nitrogen 11 Creatinine 0.71 Glucose Level 97 Calcium Level 8.4 Medications Medications Current Medications Morphine Sulfate (morphine) 2 mg Q2H PRN IV PAIN LEVEL 6-10 Last administered on 08/28/16 16:32; Admin Dose 2 MG; Start 08/24/16 at 14:00 Acetaminophen/ Hydrocodone Bitart 1 tab 1 tab Q6H PRN PO PAIN LEVEL 6-10 Last administered on 09/06/16 18:13; Admin Dose 1 TAB; Start 08/24/16 at 14:00 Sodium Chloride (NS) 1,000 ml @ 100 mls/hr Q10H IV Last administered on 22:53; Admin Dose 100 MLS/HR; Start 08/24/16 at 13:58 Gabapentin (Neurontin) 600 mg TID PO Last administered on 09/07/16 08:53; Admin Dose 600 MG; Start 08/24/16 at 21:00 Mirtazapine (Remeron) 15 mg HS PO Last administered on 09/06/16 20:48; Admin Dose 15 MG; Start 08/24/16 at 21:00 Ranitidine HCl (Zantac) 150 mg BID PO Last administered on 09/07/16 08:53; Admin Dose 150 MG; Start 08/24/16 at 21:00 Vancomycin HCl (Vancomycin Oral Syringe) 250 mg Q6 PO Last administered on 09/07 05:33; Admin Dose 250 MG; Start 08/30/16 at 00:00 Acetaminophen 650 mg 650 mg Q6H PRN PO PAIN AND OR ELEVATED TEMP Last administered on 09/04/16 22:35; Admin Dose 650 MG; Start 08/29/16 at 21:00 Metronidazole 100 ml @ 100 mls/hr Q8 IVPB Last administered on 09/07/16 05:33 ; Admin Dose 100 MLS/HR; Start 08/31/16 at 21:00 Caspofungin/ Sodium Chloride (Cancidas/NS) 250 ml @ 250 mls/hr Q24H IVPB Last administered on 09/06/16 17:56; Admin Dose 250 MLS/HR; Start 09/04/16 at 14:00 Acyclovir 400 mg 400 mg TID PO Last administered on 09/07/16 08:53; Admin Dose 400 MG; Start 09/03/16 at 13:00; Stop 09/08/16 at 12:59 Ceftriaxone Sodium (Rocephin) 50 ml @ 100 mls/hr Q24H IVPB Last administered on 09/06/16 13:40; Admin Dose 100 MLS/HR; Start 09/05/16 at 13:00 REBEKAH MERA MD Sep 07, 2016 12:18
[2016-09-07] MEDS: CEFTRIAXONE 2 GM/50 ML (PMX) 50 ML IVPB SCH (12:48)
--- NOTE | 2016-09-07 14:20 | CONS ---
Date/Time of Note Date/Time of Note DATE: 09/07/16 TIME: 14:16 Assessment/Plan Assessment/Plan Chief Complaint/Hosp Course assessment/impression - sepsis, possibly due to hepatic abscess and possible HCAP - C diff colitis - probable hepatic abscess: 5.5 x 3 x 3 cm gas and fluid collection within hepatic parenchyma adjacent to the gallbladder fossa. ETTA fluid culture grew enterobacter. s/p CT-guided drainage on 09/06/2016 - possible HCAP (CXR 09/03/2016) - a high risk for invasive candidiasis, i.e. presence of thrush, intra- abdominal surgeries, receipt of broad spectrum antibacterial medications - h/o symptomatic gallstones s/p lap cholecystectomy converted to open, and placement of a drain on 08/24/2016. Pathologist's review showed chronic cholecystitis with extensive denudation of the mucosa, no malignancy. - h/o possible cholangitis, s/p ERCP, sphincterotomy, removal of common bile duct stone and placement of a CBD stent on 08/28/2016. Pathologist's review showed mild chronic inflammation, no malignancy - labial herpes infection - thrush - chronic lower back pain with history of lumbar burst fracture due to trauma, s /p surgery recommendations - pending: fluid from CT guided drainage - d/c empiric caspofungin (09/03/2016-) - continue ceftriaxone (09/05/2016-), IV metronidazole (08/31/2016-) for complicated intra-abdominal infection. Pt took meropenem (08/31/2016-09/05/2016) and IV vancomycin (09/03/2016-09/05/2016) - continue PO vancomycin (08/30/2016-) for C diff colitis - When Pt's ready for discharge, I recommend PO levofloxacin 500 mg PO daily and PO metronidazole tid for [address] scan as outpatient prior to the end of antibiotics. - complete PO acyclovir (09/03/2016-09/08/2016), 5 days for herpes labialis management d/w Pt, [employer] Meme, Dr. Anguiano Problems: Consultation Date/Type/Reason Admit Date/Time Aug 26, 2016 at 12:13 Initial Consult Date 09/03/16 Type of Consultation: ID Referring Provider: GAGANDEEP ANGUIANO MD 24 HR Interval Summary Constitutional: no complaints Detailed Summary Eyes: no complaints ENT: no complaints Respiratory: no complaints Cardiovascular: no complaints Gastrointestinal: no complaints, No diarrhea Genitourinary: no complaints Musculoskeletal: no complaints Skin: no complaints Neurologic: no complaints Exam/Review of Systems Vital Signs Vitals Vital Signs Date Time Temp Pulse Resp B/P Pulse Ox O2 Delivery O2 Flow Rate FiO2 09/07/16 07:49 98.9 83 18 98/56 90 Intake and Output 09/06/16 09/06/16 09/07/16 15:00 23:00 07:00 Intake Total 150 ml 1250 ml 1100 ml Output Total 800 ml 810 ml Balance 150 ml 450 ml 290 ml Exam Constitutional: alert, oriented, well developed Psych: nl mood/affect, no complaints Head: atraumatic, normocephalic Eyes: nl conjunctiva, nl lids ENMT: nl external ears & nose, nl nasal mucosa & septum Neck: supple Respiratory: clear to auscultation, normal air movement Cardiovascular: nl pulses, regular rate and rhythm Gastrointestinal: non-tender, other (ETTA and external drainage cath in place in RUQ), soft, surgical scars Results Result Diagram: 09/07/16 0500 09/07/16 0520 Results 24 hrs Laboratory Tests Test 09/07/16 05:00 09/07/16 05:20 White Blood Count 11.7 #H Red Blood Count 3.75 L Hemoglobin 11.4 L Hematocrit 34.3 L Mean Corpuscular Volume 91.5 Mean Corpuscular Hemoglobin 30.4 Mean Corpuscular Hemoglobin Concent 33.2 Red Cell Distribution Width 13.6 Platelet Count 456 H Mean Platelet Volume 9.3 Neutrophils % 80.2 H Lymphocytes % 13.7 L Monocytes % 3.3 Eosinophils % 1.6 Basophils % 0.3 Nucleated Red Blood Cells % 0.0 Neutrophils # 9.4 H Lymphocytes # 1.6 Monocytes # 0.4 Eosinophils # 0.2 Basophils # 0.0 Nucleated Red Blood Cells # 0.0 Sodium Level 136 Potassium Level 3.9 Chloride Level 103 Carbon Dioxide Level 27 Anion Gap 10 Blood Urea Nitrogen 11 Creatinine 0.71 Glucose Level 97 Calcium Level 8.4 Medications Medications Current Medications Morphine Sulfate (morphine) 2 mg Q2H PRN IV PAIN LEVEL 6-10 Last administered on 08/28/16t 16:32; Admin Dose 2 MG; Start 08/24/16 at 14:00 Acetaminophen/ Hydrocodone Bitart 1 tab 1 tab Q6H PRN PO PAIN LEVEL 6-10 Last administered on 09/06/16 18:13; Admin Dose 1 TAB; Start 08/24/16 at 14:00 Sodium Chloride (NS) 1,000 ml @ 100 mls/hr Q10H IV Last administered on 12:48; Admin Dose 100 MLS/HR; Start 08/24/16 at 13:58 Gabapentin (Neurontin) 600 mg TID PO Last administered on 09/07/16 12:50; Admin Dose 600 MG; Start 08/24/16 at 21:00 Mirtazapine (Remeron) 15 mg HS PO Last administered on 09/06/16 20:48; Admin Dose 15 MG; Start 08/24/16 at 21:00 Ranitidine HCl (Zantac) 150 mg BID PO Last administered on 09/07/16 08:53; Admin Dose 150 MG; Start 08/24/16 at 21:00 Vancomycin HCl (Vancomycin Oral Syringe) 250 mg Q6 PO Last administered on 09/07 12:50; Admin Dose 250 MG; Start 08/30/16 at 00:00 Acetaminophen 650 mg 650 mg Q6H PRN PO PAIN AND OR ELEVATED TEMP Last administered on 09/04/16 22:35; Admin Dose 650 MG; Start 08/29/16 at 21:00 Metronidazole 100 ml @ 100 mls/hr Q8 IVPB Last administered on 09/07/16 05:33 ; Admin Dose 100 MLS/HR; Start 08/31/16 at 21:00 Caspofungin/ Sodium Chloride (Cancidas/NS) 250 ml @ 250 mls/hr Q24H IVPB Last administered on 09/06/16 17:56; Admin Dose 250 MLS/HR; Start 09/04/16 at 14:00 Acyclovir 400 mg 400 mg TID PO Last administered on 09/07/16 12:49; Admin Dose 400 MG; Start 09/03/16 at 13:00; Stop 09/08/16 at 12:59 Ceftriaxone Sodium (Rocephin) 50 ml @ 100 mls/hr Q24H IVPB Last administered on 09/07/16 12:48; Admin Dose 100 MLS/HR; Start 09/05/16 at 13:00 REMY ASTORGA M.D. Sep 07, 2016 14:20
[2016-09-07] MEDS: CASPOFUNGIN 50 MG in SOD CHLORIDE 0.9% 250 ML IVPB SCH (14:49)
--- NOTE | 2016-09-07 18:48 | PN ---
Date/Time of Note Date/Time of Note DATE: 09/07/16 TIME: 18:44 Assessment/Plan VTE Prophylaxis VTE Prophylaxis Intervention: SCD's Lines/Catheters IV Catheter Type (from [facility]): Peripheral IV Urinary Cath still in place: No Assessment/Plan Chief Complaint/Hosp Course Patient remains hemodynamically stable denies any fevers nausea vomiting no diarrhea today Assessment/Plan - Sepsis most likely due to hepatic abscess versus pneumonia. Status post CT drainage of liver abscess by radiology. Follow up on cultures. Dr. Black is following in infection disease consultation. Continue antibiotics per ID. - C. difficile colitis, continue PO vancomycin. - Common bile duct stone. Dr. An is following in gastroenterology consultation, s/p ERCP, sphincterotomy, removal of common bile duct stone and placement of a CBD stent. - Symptomatic gallstones, status post status post laparoscopic converted to open cholecystectomy. - Chronic lower back pain with history of lumbar burst fracture due to trauma, status post surgery. Further recommendations based on clinical course. Plan of care discussed with Dr. Anguiano. Problems: Exam/Review of Systems Vital Signs Vitals Vital Signs Date Time Temp Pulse Resp B/P Pulse Ox O2 Delivery O2 Flow Rate FiO2 09/07/16 07:49 98.9 83 18 98/56 90 Intake and Output 09/06/16 09/06/16 09/07/16 15:00 23:00 07:00 Intake Total 150 ml 1250 ml 1100 ml Output Total 800 ml 810 ml Balance 150 ml 450 ml 290 ml Exam Constitutional: alert Head: normocephalic Neck: supple Respiratory: clear to auscultation Cardiovascular: nl pulses Gastrointestinal: other (Status post surgery with ETTA drain, hepatic drain), soft, BS+ Extremities: normal pulses Results Result Diagram: 09/07/16 0500 09/07/16 0520 Results 24 hrs Laboratory Tests Test 09/07/16 05:00 09/07/16 05:20 White Blood Count 11.7 #H Red Blood Count 3.75 L Hemoglobin 11.4 L Hematocrit 34.3 L Mean Corpuscular Volume 91.5 Mean Corpuscular Hemoglobin 30.4 Mean Corpuscular Hemoglobin Concent 33.2 Red Cell Distribution Width 13.6 Platelet Count 456 H Mean Platelet Volume 9.3 Neutrophils % 80.2 H Lymphocytes % 13.7 L Monocytes % 3.3 Eosinophils % 1.6 Basophils % 0.3 Nucleated Red Blood Cells % 0.0 Neutrophils # 9.4 H Lymphocytes # 1.6 Monocytes # 0.4 Eosinophils # 0.2 Basophils # 0.0 Nucleated Red Blood Cells # 0.0 Sodium Level 136 Potassium Level 3.9 Chloride Level 103 Carbon Dioxide Level 27 Anion Gap 10 Blood Urea Nitrogen 11 Creatinine 0.71 Glucose Level 97 Calcium Level 8.4 Medications Medications Current Medications Morphine Sulfate (morphine) 2 mg Q2H PRN IV PAIN LEVEL 6-10 Last administered on 08/28/16 16:32; Admin Dose 2 MG; Start 08/24/16 at 14:00 Acetaminophen/ Hydrocodone Bitart 1 tab 1 tab Q6H PRN PO PAIN LEVEL 6-10 Last administered on 09/06/16 18:13; Admin Dose 1 TAB; Start 08/24/16 at 14:00 Sodium Chloride (NS) 1,000 ml @ 100 mls/hr Q10H IV Last administered on 12:48; Admin Dose 100 MLS/HR; Start 08/24/16 at 13:58 Gabapentin (Neurontin) 600 mg TID PO Last administered on 09/07/16 12:50; Admin Dose 600 MG; Start 08/24/16 at 21:00 Mirtazapine (Remeron) 15 mg HS PO Last administered on 09/06/16 20:48; Admin Dose 15 MG; Start 08/24/16 at 21:00 Ranitidine HCl (Zantac) 150 mg BID PO Last administered on 09/07/16 08:53; Admin Dose 150 MG; Start 08/24/16 at 21:00 Vancomycin HCl (Vancomycin Oral Syringe) 250 mg Q6 PO Last administered on 09/07 17:53; Admin Dose 250 MG; Start 08/30/16 at 00:00 Acetaminophen 650 mg 650 mg Q6H PRN PO PAIN AND OR ELEVATED TEMP Last administered on 09/04/16 22:35; Admin Dose 650 MG; Start 08/29/16 at 21:00 Metronidazole 100 ml @ 100 mls/hr Q8 IVPB Last administered on 09/07/16 14:48 ; Admin Dose 100 MLS/HR; Start 08/31/16 at 21:00 Caspofungin/ Sodium Chloride (Cancidas/NS) 250 ml @ 250 mls/hr Q24H IVPB Last administered on 09/07/16 14:49; Admin Dose 250 MLS/HR; Start 09/04/16 at 14:00 ; Stop 09/07/16 at 23:59 Acyclovir 400 mg 400 mg TID PO Last administered on 09/07/16 12:49; Admin Dose 400 MG; Start 09/03/16 at 13:00; Stop 09/08/16 at 12:59 Ceftriaxone Sodium (Rocephin) 50 ml @ 100 mls/hr Q24H IVPB Last administered on 09/07/16 12:48; Admin Dose 100 MLS/HR; Start 09/05/16 at 13:00 FELIBERTO SANTOS Sep 07, 2016 18:48
[2016-09-07 20:00] VITALS: BP 97/56; RESP 18
[2016-09-07] MEDS: MIRTAZAPINE 15 MG TAB PO SCH (20:45)
[2016-09-08] MEDS: SOD CHLORIDE 0.9% 1,000 ML IV SCH ×2 (02:28→13:58)
[2016-09-08] MEDS: metroNIDAZOLE 500 MG/NS (PMX) 100 ML IVPB SCH ×2 (05:37→13:24)
[2016-09-08] MEDS: VANCOMYCIN HCL 250 MG/5ML POSYG PO SCH ×2 (05:37→12:24)
[2016-09-08 07:14] LABS: ADD SCAN DIFF NO
[2016-09-08 07:24] LABS: BASOPHILS % 0.5 % (0.0-2.0); EOSINOPHILS # 0.3 10^3/ul (0.0-0.5); HEMATOCRIT 36.5 % (42.0-52.0); HEMOGLOBIN 11.8 g/dl (14.0-18.0); LYMPHOCYTES # 1.9 10^3/ul (0.8-2.9); LYMPHOCYTES % 24.8 % (15.0-51.0); MEAN CORPUSCULAR HEMOGLOBIN 30.1 pg (29.0-33.0); MEAN CORPUSCULAR HGB CONC 32.3 g/dl (32.0-37.0); MEAN CORPUSCULAR VOLUME 93.1 fl (82.0-101.0); MEAN PLATELET VOLUME 9.4 fl (7.4-10.4); MONOCYTE # 0.4 10^3/ul (0.3-0.9); MONOCYTES % 5.7 % (0.0-11.0); NEUTROPHIL # 4.9 10^3/ul (1.6-7.5); NEUTROPHILS % 64.5 % (39.0-77.0); PLATELET COUNT 477 10^3/UL (140-415); RED BLOOD COUNT 3.92 10^6/ul (4.70-6.10); RED CELL DISTRIBUTION WIDTH 13.9 % (11.5-14.5); WHITE BLOOD COUNT 7.5 10^3/ul (4.8-10.8)
[2016-09-08 07:45] VITALS: BP 93/51; RESP 18
[2016-09-08 07:47] LABS: CALCIUM 8.6 mg/dl (8.4-10.2); CREATININE 0.7 mg/dl (0.61-1.24); POTASSIUM 4.1 mmol/L (3.5-5.1)
[2016-09-08] MEDS: GABAPENTIN 300 MG CAP PO SCH ×2 (08:40→12:24)
[2016-09-08] MEDS: RANITIDINE 150 MG TAB PO SCH (08:41)
[2016-09-08] MEDS: ACYCLOVIR 400 MG TAB PO SCH (08:41)
--- NOTE | 2016-09-08 11:35 | DS ---
Date/Time of Note Date/Time of Note DATE: 09/08/16 TIME: 11:32 Discharge Summary Admission/Discharge Info Admit Date/Time Aug 26, 2016 at 12:13 Discharge Date/Time 09/08/16 Patient Condition: Fair Consults surgery ID GI Procedures cholecystectomy ERCP Hx of Present Illness Patient comes in with abdominal pain Hospital Course Patient had cholecystectomy and underwent laparoscopic then converted to open cholecystectomy. Patient had complicated course with common bile duct stone treated with ERCP and C. diff colitis. Patient was treated and eventually improved with antibiotics. By the time of discharge, patient is doing better and felt to be stable to go home on oral antibiotics. He has drains in place and will follow up with Dr. Tobar. Assessment/Plan - Sepsis most likely due to hepatic abscess versus pneumonia. Status post CT drainage of liver abscess by radiology. Follow up on cultures. Dr. Black is following in infection disease consultation. Continue antibiotics per ID. - C. difficile colitis, continue PO vancomycin. - Common bile duct stone. Dr. An is following in gastroenterology consultation, s/p ERCP, sphincterotomy, removal of common bile duct stone and placement of a CBD stent. - Symptomatic gallstones, status post status post laparoscopic converted to open cholecystectomy. - Chronic lower back pain with history of lumbar burst fracture due to trauma, status post surgery. Further recommendations based on clinical course. Plan of care discussed with Dr. Anguiano. Home Meds Reported Medications Ranitidine Hcl* (Zantac*) 150 Mg Tablet, 150 MG PO BID, #60 TAB 08/24/16 Hydrocodone/Acetaminophen ([place] 5-325 Tablet) 1 Each Tablet, 1 EACH PO, TAB 08/24/16 Mirtazapine* (Mirtazapine*) 15 Mg Tablet, 15 MG PO HS, TAB 08/24/16 Metoclopramide* (Reglan*) 5 Mg Tablet, 5 MG PO AC MEALS, TAB 08/24/16 Mag Hydrox/Al Hydrox/Simeth (Maalox Advanced Suspension) 355 Ml Oral.susp, 400 ML PO 08/24/16 Gabapentin* (Gabapentin*) 600 Mg Tablet, 600 MG PO TID, #90 TAB 08/24/16 Primary Care Provider Not On Staff Doctor Pending Labs Laboratory Tests Test 09/08/16 05:50 White Blood Count 7.510^3/ul (4.8-10.8) Red Blood Count 3.9210^6/ul (4.70-6.10) Hemoglobin 11.8g/dl (14.0-18.0) Hematocrit 36.5% (42.0-52.0) Mean Corpuscular Volume 93.1fl (82.0-101.0) Mean Corpuscular Hemoglobin 30.1pg (29.0-33.0) Mean Corpuscular Hemoglobin Concent 32.3g/dl (32.0-37.0) Red Cell Distribution Width 13.9% (11.5-14.5) Platelet Count 69896^3/UL (140-415) Mean Platelet Volume 9.4fl (7.4-10.4) Neutrophils % 64.5% (39.0-77.0) Lymphocytes % 24.8% (15.0-51.0) Monocytes % 5.7% (0.0-11.0) Eosinophils % 4.0% (0.0-7.0) Basophils % 0.5% (0.0-2.0) Nucleated Red Blood Cells % 0.0/100WBC (0.0-0.0) Neutrophils # 4.910^3/ul (1.6-7.5) Lymphocytes # 1.910^3/ul (0.8-2.9) Monocytes # 0.410^3/ul (0.3-0.9) Eosinophils # 0.310^3/ul (0.0-0.5) Basophils # 0.010^3/ul (0.0-0.1) Nucleated Red Blood Cells # 0.010^3/ul (0.0-0.0) Sodium Level 140mmol/L (135-144) Potassium Level 4.1mmol/L (3.5-5.1) Chloride Level 103mmol/L (97-110) Carbon Dioxide Level 29mmol/L (21-31) Anion Gap 12 (8-16) Blood Urea Nitrogen 10mg/dl (7-20) Creatinine 0.70mg/dl (0.61-1.24) Glucose Level 93mg/dl (70-220) Calcium Level 8.6mg/dl (8.4-10.2) ZEB JUSTIN Sep 08, 2016 11:35
[2016-09-08] MEDS: CEFTRIAXONE 2 GM/50 ML (PMX) 50 ML IVPB SCH (12:24)
--- NOTE | 2016-09-10 08:03 | PN ---
DATE: 09/08/2016 FOLLOWUP SUBJECTIVE: He states that he feels okay. _. No event changes overnight. OBJECTIVE: GENERAL: Awake, alert and oriented, lying down in the bed, comfortable. VITAL SIGNS: Temperature 98.2, heart rate 78, respirations 18, blood pressure 93/51, saturations 93% on room air. LABORATORY: WBC 7500 with 64% segmented. Platelets 1277, high. Hemoglobin 11.8, hematocrit 36.5. Chemistry: Sodium, potassium, BUN, creatinine are normal. Cultures from the abdominal abscess has grown gram-negative rods and another culture sent on the has grown Enterobacter aerogenes. There are 2 drains in the patient, one is through a Akin drain which in about 24 hours has drained about 10 mL of light greenish fluid, and the other one is a accardeon drain which is connected to a pigtail which is in the abscess cavity, which has not draining anything in the past 24 hours. also being flushed with 10 mL every 8 hours. The abdomen is soft. Bowel movements okay. Eating okay. No nausea, no vomiting, no chills. PLAN: Patient is going to be discharged home today, with home health care to take care of both drains. The patient will be followed by Dr. Tobar in this office on this coming Saturday, which is the 11 of September. The patient will be discharged with oral antibiotics, Levaquin and Flagyl. Dictated By: ARNAUD SWANN/MILLY Conf#: [id number] DID#: [id number] [place]
== END 2016-09-08 15:15 | disposition home or self-care (01) | DRG 414 ==
LOC: SDS 09:00 → MS2 17:00 → SDS 08-25 01:12 → MS2 08-25 01:12 → SDS 08-25 01:22 → MS2 08-25 01:28 → OBSVTOIN 08-26 12:13
PROVIDERS: ADMIT Internal Medicine; ATTEND Surgery
PROC: 0FJ44ZZ Inspection of Gallbladder, Percutaneous Endoscopic Approach (ICD-10-PCS; 2016-08-24)
PROC: 0FT40ZZ Resection of Gallbladder, Open Approach (ICD-10-PCS; principal; 2016-08-24 12:00)
PROC: 0FC98ZZ Extirpation of Matter from Common Bile Duct, Via Natural or Artificial Opening Endoscopic (ICD-10-PCS; 2016-08-28)
PROC: 0FBC8ZX Excision of Ampulla of Vater, Via Natural or Artificial Opening Endoscopic, Diagnostic (ICD-10-PCS; 2016-08-28)
PROC: 0F798DZ Dilation of Common Bile Duct with Intraluminal Device, Via Natural or Artificial Opening Endoscopic (ICD-10-PCS; 2016-08-28)
DX: K80.80 Other cholelithiasis without obstruction (principal); A41.89 Other specified sepsis; K75.0 Abscess of liver; J18.9 Pneumonia, unspecified organism; K91.89 Other postprocedural complications and disorders of digestive system; N39.0 Urinary tract infection, site not specified; B96.7 Clostridium perfringens [C. perfringens] as the cause of diseases classified elsewhere; Y95 Nosocomial condition; M54.5 Low back pain; G89.29 Other chronic pain; Z87.81 Personal history of (healed) traumatic fracture; B00.1 Herpesviral vesicular dermatitis
CPT/HCPCS: 71010; 74177; 74330; 75989; 76700; 77012; 78226; 80048; 80053; 80076; 81001; 82150; 83690; 85025; 85610; 85730; 87040; 87070; 87075; 87086; 88304; 88305; 97116; 97162; 97530; A9537; C2617; G0378; J0690; J1170; J1200; J1885; J2175; J2185; J2250; J2270; J2370; J2543; J2710; J2765; J2795; J3010; J3370; J7030; J7040; J7050; J7999; Q9967